=== PATIENT | female | born 1970 | race African-American/Black ===

== ENCOUNTER 2016-09-24 19:08 | Emergency (ER) | payer MEDICAID ==
[~2016-09-24] VITALS: Ht 160 cm; Wt 74.4 kg
[~2016-09-24 19:08] MED LIST: ARTIFICIAL TEAR15 ML LEFT EYE; CIPRO250 MG ORAL; CIPROFLOXACIN250 MG PO; DIFLUCAN150 MG PO; DYRENIUM50 MG PO; IBUPROFEN600 MG ORAL; LEVAQUIN250 M1 ORAL; PENICILLIN V P500 MG PO; PRED MILD5 ML OP; RANITIDINE HCL150 MG ORAL; ZOFRAN ODT4 MG ORAL
--- NOTE | 2016-09-24 21:20 | Emergency Room Report ---
History of Present Illness General Chief Complaint: Lower Extremity Injury Source: Patient Present Illness HPI Patient stubbed foot on computer stand earlier today. Continued pain. Took aleve. Pain 10/10 aching and throbbing. Swelling dorsum of foot. Pain radiates up into foot and slightly into ankle. Some numbness. No bleeding. Not diabetic. 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 Last Menstrual Period: 09/14/16 Now: No Reviewed Nursing Documentation: PMH: Agreed, PSxH: Agreed Nursing Documentation-PMH Past Medical History: No History, Except For Hx Hypertension: Yes Review of Systems Constitutional: Denies: fever Musculoskeletal: Reports: see HPI Skin: Reports: see HPI Neurological: Reports: see HPI Hematologic/Lymphatic: Reports: see HPI Physical Exam Vital Signs Date Time Temp Pulse Resp B/P Pulse Ox O2 Delivery O2 Flow Rate FiO2 09/24/16 19:36 98.2 92 16 136/75 100 Room Air Sp02 EP Interpretation: reviewed, normal General Appearance: well appearing, no apparent distress Head: normocephalic, atraumatic Eyes: bilateral eye PERRL, bilateral eye normal inspection ENT: hearing grossly normal, normal voice, moist mucus membranes Neck: full range of motion, supple Respiratory: no respiratory distress, speaking full sentences Musculoskeletal: no calf tenderness, decreased range of mation - toes due to pain, swelling, other - ankle not tender, MTs not tender Neurologic: alert, motor strength/tone normal, sensory intact, normal gait, speech normal Psychiatric: mood/affect normal Skin: other - swelling, no hematoma (at this time) Medical Decision Making Diagnostic Impression: Primary Impression: Fracture of fourth toe, right, closed Qualified Codes: S92.501A - Displaced unspecified fracture of right lesser toe (s), initial encounter for closed fracture ER Course Pt with foot contusion and pain. Ddx: fx, contusion, sprain. x-rays indicated. Also will be given analgesia. + fx 4th toe. Improved with treatment. Harshil tape with good position. Neurovasc intact checked by me. Patient stable for outpatient observation and treatment. Other X-Ray Diagnostic Results Other X-Ray Diagnostic Results : X-Ray Ordered: R foot EP Interpretation: Yes Findings: no dislocation, other - fx R 4th toe, no deformity Number of Views: 3 Last Vital Signs Date Time Temp Pulse Resp B/P Pulse Ox O2 Delivery O2 Flow Rate FiO2 09/24/16 23:00 98.2 68 19 130/80 99 Room Air Status: improved Disposition: HOME, SELF-CARE Condition: Improved Scripts Tramadol Hcl* (ULTRAM*) 50 Mg Tablet 50 MG ORAL Q6H Y for For Pain, #14 TAB 0 Refills Prov: Arnold Soto M.D. 09/24/16 Ibuprofen* (MOTRIN*) 600 Mg Tablet 600 MG ORAL Q6H Y for For Pain, #20 TAB Prov: Arnold Soto M.D. 09/24/16 Referrals: [facility],REFERRING (PCP) Arnold Soto M.D. Sep 24, 2016 21:20
[2016-09-24] MEDS ORDERED: traMADol 50mg tab ORAL ONE (21:45)
[2016-09-24] MEDS ORDERED: IBUPROFEN600 MG ORAL (21:48)
[2016-09-24] MEDS ORDERED: TRAMADOL HCL50 MG ORAL (21:48)
[2016-09-24 23:00] VITALS: BP 130/80
--- NOTE | 2016-09-25 13:52 | Diagnostic Imaging Report ---
Indications: Right foot pain Technique: 3 views right foot Findings: Comparison: None Transverse fracture proximal metadiaphyseal junction fourth proximal phalanx, nondisplaced. No additional fracture, dislocation, joint space or growth plate widening, surrounding soft tissue swelling/gas/foreign body, or other acute changes are identified. Spurs emanate from the plantar and posterior aspects of calcaneus. IMPRESSION: Fracture base of right fourth proximal phalanx, apparently closed No other evidence of acute injury Calcaneal enthesophytes
== END 2016-09-24 23:24 | disposition home or self-care (01) ==
LOC: EMR 21:16
DX: S92.511A Displaced fracture of proximal phalanx of right lesser toe(s), initial encounter for closed fracture (principal); W22.8XXA Striking against or struck by other objects, initial encounter; Y92.9 Unspecified place or not applicable; M77.31 Calcaneal spur, right foot; Z88.2 Allergy status to sulfonamides; Z88.1 Allergy status to other antibiotic agents
CPT/HCPCS: 99281

== ENCOUNTER 2016-10-09 18:22 | Emergency (ER) | payer MEDICAID ==
[~2016-10-09] VITALS: Ht 160 cm; Wt 74.4 kg
[~2016-10-09 18:22] MED LIST changes: +TRAMADOL HCL50 MG ORAL
[2016-10-09 18:40] VITALS: BP 130/70
--- NOTE | 2016-10-09 19:18 | Emergency Room Report ---
History of Present Illness General Chief Complaint: Upper Respiratory Illness Source: Patient Present Illness HPI 46-year-old female presents emergency department complaining of sore throat, intermittent fevers and chills at home in addition to nonproductive cough x 2 days She also states that she has increase in phlegm in the throat with difficulty clearing. Patient states she was attempting to clear her throat this morning and vomited. Pt. rates her pain as 10/10 in severity and describes a tearing sensation exacerbated with swallowing. Patient denies nausea or abdominal pain. She reports fatigue denies neck stiffness or neck pain. Patient denies ill contacts or recent travel. Denies history of asthma, COPD, or smoking. Denies rashes, CP, Palpitations, LOC, AMS, dizziness, Changes in Vision, Sensation, paresthesias, or a sudden severe headache. Allergies: Coded Allergies: NITROFURANTOIN (Verified Allergy, Severe, Anaphylaxis, 07/08/16) CEPHALEXIN (Unverified Allergy, Mild, 04/15/16) METRONIDAZOLE (Unverified Allergy, Mild, 04/15/16) Uncoded Allergies: BACTRUM (Allergy, Mild, 04/15/16) Patient History Past Medical History: see triage record Past Surgical History: none Pertinent Family History: none Last Menstrual Period: 10/03/16 Now: No Immunizations: UTD Reviewed Nursing Documentation: PMH: Agreed, PSxH: Agreed Nursing Documentation-PMH Hx Hypertension: Yes Review of Systems All Other Systems: negative except mentioned in HPI Physical Exam Vital Signs Date Time Temp Pulse Resp B/P Pulse Ox O2 Delivery O2 Flow Rate FiO2 10/09/16 18:34 98.6 99 15 130/70 99 Room Air Sp02 EP Interpretation: reviewed, normal General Appearance: no apparent distress, alert, GCS 15, non-toxic Head: normocephalic, atraumatic Eyes: bilateral eye PERRL, bilateral eye normal inspection ENT: hearing grossly normal, normal pharynx, no angioedema, normal voice, TMs + canals normal, uvula midline, moist mucus membranes, nasal congestion - clear rhinorrhea, pharyngeal erythema, tonsillar exudate, other - tonsils are surgically absent Neck: full range of motion, no meningismus, no bony tend, supple/symm/no masses Respiratory: chest non-tender, lungs clear, normal breath sounds, no rhonchi, no respiratory distress, no retraction, no accessory muscle use, no wheezing, speaking full sentences Cardiovascular #1: regular rate, rhythm, no edema Gastrointestinal: normal bowel sounds, non tender, soft, no guarding, no rebound Rectal: deferred Musculoskeletal: gait/station normal, normal range of motion, non-tender Neurologic: alert, oriented x3, responsive, motor strength/tone normal, sensory intact, speech normal Psychiatric: judgement/insight normal, memory normal, mood/affect normal, no suicidal/homicidal ideation Skin: normal color, no rash, warm/dry, well hydrated Lymphatic: no adenopathy Medical Decision Making PA Attestation Dr. Soto is my supervising Physician whom patient management has been discussed with. Diagnostic Impression: Primary Impression: Pharyngitis Qualified Codes: J02.9 - Acute pharyngitis, unspecified ER Course Pt. presents to the ED c/o : sore throat, intermittent fevers and chills, nasal congestion, increased mucus in the throat and intermittent cough. Ddx considered but are not limited to: pharyngitis, strep, APPLICATION ARCHITECT, ludwigs angina, URI , GE Vital signs: are WNL, pt. is afebrile, non-toxic in appearance. H&PE are most consistent with: pharyngitis presumed strep. Post nasal drainage is also highly suspicious due to increased mucus in the throat and nasal congestion. ORDERS: None required at this time as the diagnosis is clinical ED INTERVENTIONS: none required at this time. DISCHARGE: At this time pt. is stable for d/c to home. Will provide printed patient care instructions, and any necessary prescriptions. Care plan and follow up instructions have been discussed with the patient prior to discharge. Last Vital Signs Date Time Temp Pulse Resp B/P Pulse Ox O2 Delivery O2 Flow Rate FiO2 10/09/16 18:40 98.6 15 130/70 99 Room Air 10/09/16 18:40 99 Disposition: HOME, SELF-CARE Condition: Stable Scripts Lidocaine HCl (Lidocaine HCl Viscous) 100 Ml Solution 20 ML PO TID for 7 Days, #420 ML Prov: Karen Rodriguez P.A. 10/09/16 Loratadine/Pseudoephedrine (CLARITIN-D 24 HOUR TABLET) 1 Each Tab.er.24h 1 TAB PO DAILY for 14 Days, #30 TAB Prov: Karen Rodriguez P.A. 10/09/16 Amoxicillin (AMOXICILLIN) 400 Mg/5 Ml Susp.recon 6.25 ML ORAL BID for 10 Days, #140 ML Prov: Karen Rodriguez 10/09/16 Patient Instructions: Pharyngitis, Upper Respiratory Infection, Adult Additional Instructions: Take medications as directed. Follow up with PCP in 3-5 days Return sooner to ED if new symptoms occur, or current symptoms become worse. Do not drink alcohol, drive, or operate heavy machinery while taking Cough Syrup as this may cause drowsiness. Karen Rodriguez Oct 09, 2016 19:18
[2016-10-09] MEDS ORDERED: AMOXICILLI400 MG/5 M ORAL (19:23)
[2016-10-09] MEDS ORDERED: CLARITIN-D 241 EACH PO (19:23)
[2016-10-09] MEDS ORDERED: LIDOCAINE VISCO20 ML PO (19:23)
[2016-10-09 19:35] VITALS: BP 130/70
== END 2016-10-09 19:54 | disposition home or self-care (01) ==
LOC: EMR 19:25
DX: J02.9 Acute pharyngitis, unspecified (principal); I10 Essential (primary) hypertension; Z88.2 Allergy status to sulfonamides; Z88.1 Allergy status to other antibiotic agents
CPT/HCPCS: 99284

== ENCOUNTER 2017-01-28 18:11 | Emergency (ER) | payer MEDICAID ==
[~2017-01-28] VITALS: Ht 160 cm; Wt 72.1 kg
[~2017-01-28 18:11] MED LIST changes: +AMOXICILLI400 MG/5 M ORAL; +CLARITIN-D 241 EACH PO; +LIDOCAINE VISCO20 ML PO
[2017-01-28] MEDS ORDERED: Indomethacin 25mg cap ORAL ONE (19:15)
[2017-01-28] MEDS ORDERED: IBUPROFEN600 MG ORAL (19:52)
[2017-01-28 20:00] VITALS: BP 131/60
[2017-01-28] MEDS ORDERED: Fluconazole 100mg tab ORAL ONE (20:00)
[2017-01-28 20:20] VITALS: BP 131/60
--- NOTE | 2017-01-29 10:25 | Diagnostic Imaging Report ---
Indications: Right knee pain Technique: 3 views of the right knee Findings: Comparison: None No fracture, dislocation, lytic destruction, periosteal reaction, joint space widening or effusion, surrounding soft tissue abnormality, or other acute changes demonstrated. Small spur emanates from the superior pole of the patella in the region of quadriceps tendon insertion. No additional deformity, alignment abnormality, arthritic change, soft tissue calcification, or other chronic changes demonstrated. IMPRESSION: Patellar enthesophyte Otherwise negative right knee series.
[2017-01-29] MEDS ORDERED: INDOMETHACIN25 MG PO (22:04)
--- NOTE | 2017-01-30 12:39 | Emergency Room Report ---
History of Present Illness General Chief Complaint: Pain Source: Patient Present Illness HPI The patient is a 46-year-old female presenting with right knee pain which began 2 weeks prior. She is unsure why the pain began and denies any injury to this area. Pain is described as a 6/10 dull ache and does not radiate from the knee. Pain worse with walking. She denies any numbness or tingling. She does admit to swelling of the knee which has been gradually increasing. She also admits to vaginal itching for the past week and states she frequently gets vaginal yeast infections. She denies any other symptoms including rash, fever, chills, SOB, CP, calf pain, dysuria, hematuria Allergies: Coded Allergies: NITROFURANTOIN (Verified Allergy, Severe, Anaphylaxis, 07/08/16) CEPHALEXIN (Unverified Allergy, Mild, 04/15/16) METRONIDAZOLE (Unverified Allergy, Mild, 04/15/16) SULFAMETHOXAZOLE (Verified Allergy, Unknown, 01/28/17) TRIMETHOPRIM (Verified Allergy, Unknown, 01/28/17) Uncoded Allergies: BACTRUM (Allergy, Mild, 04/15/16) Patient History Past Medical History: see triage record Pertinent Family History: none Last Menstrual Period: 12/28/16 Reviewed Nursing Documentation: PMH: Agreed, PSxH: Agreed Nursing Documentation-PMH Past Medical History: No History, Except For Hx Hypertension: Yes Review of Systems All Other Systems: negative except mentioned in HPI Physical Exam Vital Signs Date Time Temp Pulse Resp B/P Pulse Ox O2 Delivery O2 Flow Rate FiO2 01/28/17 18:27 97.9 85 16 129/62 95 Room Air Sp02 EP Interpretation: reviewed, normal General Appearance: no apparent distress, alert, GCS 15, non-toxic Head: normocephalic, atraumatic Eyes: bilateral eye PERRL, bilateral eye normal inspection ENT: hearing grossly normal, normal pharynx, no angioedema, normal voice Respiratory: chest non-tender, lungs clear, normal breath sounds, speaking full sentences Cardiovascular #1: regular rate, rhythm, no edema Musculoskeletal: normal range of motion, no calf tenderness, swelling, tender - TTP over the R knee anterior joint line Neurologic: alert, oriented x3, responsive, motor strength/tone normal, sensory intact, speech normal Psychiatric: judgement/insight normal, memory normal, mood/affect normal, no suicidal/homicidal ideation Skin: normal color, no rash, warm/dry, well hydrated Lymphatic: no adenopathy Procedures Splinting Splinting : Consent: Verbal Location: R knee Pre-Made Type: LUISANA wrap Pre-Proc Neuro Vasc Exam: normal Post-Proc Neuro Vasc Exam: normal Patient Tolerated: Well Complications: None Medical Decision Making PA Attestation Dr. Castañeda is my supervising physician. Patient management was discussed with my supervising physician Diagnostic Impression: Primary Impression: Knee pain Qualified Codes: M25.561 - Pain in right knee ER Course The patient is a 46-year-old female presenting with right knee pain which began 2 weeks prior. Ddx considered include but not limited to gout, sprain/strain, fracture, contusion, DVT Differential diagnosis considered but not limited to: UTI, vaginitis, yeast infection, PE: vitals WNL. NAD R knee: there is non pitting edema to the R knee only. TTP over the anterior joint line. No ecchymosis or erythema. Skin warm and dry. No calf edema of tenderness. Normal gait. R knee xray unremarkable. UA ordered yet patient has chosen to leave before results. R knee placed in LUISANA wrap and the pt will be NH'ed home with a prescription for indomethacin and has been treated for vaginal yeast infection. ER precautions given Other X-Ray Diagnostic Results Other X-Ray Diagnostic Results : X-Ray Ordered: R knee Date: January 28, 2017 EP Interpretation: Yes Findings: no fractures, no dislocation, no soft tissue swelling Number of Views: 3 PA Scribe Text I am acting as scribe for my supervising physician. My supervising physician's interpretation of the R knee xrays are there are no fractures, dislocations or soft tissue swelling. Last Vital Signs Date Time Temp Pulse Resp B/P Pulse Ox O2 Delivery O2 Flow Rate FiO2 01/28/17 20:20 97.9 72 17 131/60 100 Room Air Status: improved Disposition: HOME, SELF-CARE Condition: Improved Referrals: [facility],REFERRING (PCP) Patient Instructions: Knee Pain Additional Instructions: I discussed my findings with the patient. All questions and concerns have been answered. Treatment and medication compliance have been addressed. I advised the patient that they need to follow up with PMD in 3-5 days. Return to ED if pain remains or worsens, numbness or tingling occurs, new rash is noticed, fever is noticed, or if needed for any reason. Patient verbalized understanding of discharge instructions. REGGIE JIMENEZ January 30, 2017 12:39
== END 2017-01-28 20:20 | disposition home or self-care (01) ==
LOC: EMR 19:00
DX: M25.561 Pain in right knee (principal); L29.2 Pruritus vulvae; Z88.2 Allergy status to sulfonamides; Z88.8 Allergy status to other drugs, medicaments and biological substances; I10 Essential (primary) hypertension
CPT/HCPCS: 29530; 99283

== ENCOUNTER 2017-01-29 18:51 | Emergency (ER) | payer MEDICAID ==
[~2017-01-29] VITALS: Ht 160 cm; Wt 72.1 kg
[2017-01-29] MEDS ORDERED: Ketorolac 60mg Inj IM ONE (20:15)
--- NOTE | 2017-01-29 20:41 | Emergency Room Report ---
History of Present Illness General Chief Complaint: Lower Extremity Injury Source: Patient Present Illness HPI 46-year-old female presents emergency department complaining of right calf pain , swelling times one day. Patient states she was seen here in the emergency department yesterday for pain and swelling of the right knee. Patient states she had x-rays performed which were negative. Patient states she was given indomethacin and has been taking Motrin without relief. Patient reports 9/10 in severity pain that rated down the posterior calf. Patient also reports some seen/increase in prominence of the veins. Patient denies oral contraceptive use , history of smoking or estrogen replacement. Patient denies nausea vomiting fevers chills recent travel or long periods of being sedentary. She reports pain is exacerbated upon walking denies history of high-pressure denies past medical history. She denies trauma. 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 Pt. did not fill rx that was given yesterday for motrin, she states she has motrin at home. Pt also is not wearing LUISANA wrap which was given at yesterdays visit, she states it does not provide relief. Denies CP, Palpitations, LOC, AMS, dizziness, Changes in Vision, Sensation, paresthesias, or a sudden severe headache. Allergies: Coded Allergies: NITROFURANTOIN (Verified Allergy, Severe, Anaphylaxis, 07/08/16) CEPHALEXIN (Unverified Allergy, Mild, 04/15/16) METRONIDAZOLE (Unverified Allergy, Mild, 04/15/16) SULFAMETHOXAZOLE (Verified Allergy, Unknown, 01/28/17) TRIMETHOPRIM (Verified Allergy, Unknown, 01/28/17) Uncoded Allergies: BACTRUM (Allergy, Mild, 04/15/16) Patient History Past Medical History: see triage record Past Surgical History: none Pertinent Family History: none Last Menstrual Period: LAST MONTH Now: No Immunizations: UTD Reviewed Nursing Documentation: PMH: Agreed, PSxH: Agreed Nursing Documentation-PMH Hx Hypertension: Yes Review of Systems All Other Systems: negative except mentioned in HPI Physical Exam Vital Signs Date Time Temp Pulse Resp B/P Pulse Ox O2 Delivery O2 Flow Rate FiO2 01/29/17 19:12 98.4 92 18 135/71 97 Room Air Sp02 EP Interpretation: reviewed, normal General Appearance: no apparent distress, alert, GCS 15, non-toxic Head: normocephalic, atraumatic Eyes: bilateral eye PERRL, bilateral eye normal inspection ENT: hearing grossly normal, normal pharynx, no angioedema, normal voice Neck: full range of motion, supple/symm/no masses Respiratory: lungs clear, normal breath sounds, speaking full sentences Cardiovascular #1: regular rate, rhythm, no edema, normal capillary refill Cardiovascular #2: 2+ dorsalis pedis (R), 2+ dorsalis pedis (L) Musculoskeletal: back normal, gait/station normal, normal range of motion, tender - right posterior calf TTP, LE swelling noted to the right knee and calf. good capillary refill and pulses bilaterally. Neurologic: alert, oriented x3, responsive, motor strength/tone normal, sensory intact, speech normal Psychiatric: judgement/insight normal, memory normal, mood/affect normal Skin: normal color, no rash, warm/dry, well hydrated Medical Decision Making PA Attestation Dr. garza is my supervising Physician whom patient management has been discussed with. Diagnostic Impression: Primary Impression: Knee pain Qualified Codes: M25.561 - Pain in right knee Additional Impressions: Right leg swelling Pain and swelling of lower leg Qualified Codes: M79.661 - Pain in right lower leg; M79.89 - Other specified soft tissue disorders ER Course 46-year-old female presents emergency department complaining of right calf pain , swelling times one day. Patient states she was seen here in the emergency department yesterday for pain and swelling of the right knee. Patient states she had x-rays performed which were negative. Patient states she was given indomethacin and has been taking Motrin without relief. Patient reports 9/10 in severity pain that rated down the posterior calf. Patient also reports some seen/increase in prominence of the veins. Patient denies oral contraceptive use , history of smoking or estrogen replacement. Patient denies nausea vomiting fevers chills recent travel or long periods of being sedentary. She reports pain is exacerbated upon walking denies history of high-pressure denies past medical history. She denies trauma. 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 Pt. did not fill rx that was given yesterday for Motrin, she states she has Motrin at home. Pt also is not wearing LUISANA wrap which was given at yesterdays visit, she states it does not provide relief. Ddx considered but are not limited to Cellulitis, DVT, varicose vein, PAD, Venous insufficiency, lymphedema, dependent edema, musculoskeletal injury. Vital signs: are WNL, pt. is afebrile H&PE are most consistent with unilateral lower extremity pain and swelling will r/o DVT. no erythema, no increased temperature to palpation, no increased ligamental laxity noted. infection is not suspected at this time. - reviewed X-ray imaging that was performed yesterday which was negative for fx ,D/L, or obvious soft tissue injury. - It appears pt. was treated yesterday with indomethacin as provider was suspicious for gout- reporting no personal, but family hx of gout. ORDERS: CMP, CBC with Diff, PT/PTT: Unremarkable - LE duplex U/s to R/O dvt. NEGATIVE FOR DVT. ED INTERVENTIONS: -Toradol IM DISCHARGE: At this time pt. is stable for d/c to home. Will provide printed patient care instructions, and any necessary prescriptions. Care plan and follow up instructions have been discussed with the patient prior to discharge. Labs Test 01/29/17 20:54 White Blood Count 10.6 K/UL (4.8-10.8) Red Blood Count 4.45 M/UL (4.20-5.40) Hemoglobin 12.0 G/DL (12.0-16.0) Hematocrit 37.1 % (37.0-47.0) Mean Corpuscular Volume 83 FL (80-99) Mean Corpuscular Hemoglobin 26.9 PG (27.0-31.0) Mean Corpuscular Hemoglobin Concent 32.3 G/DL (32.0-36.0) Red Cell Distribution Width 15.0 % (11.6-14.8) Platelet Count 411 K/UL (150-450) Mean Platelet Volume 6.1 FL (6.5-10.1) Neutrophils (%) (Auto) 58.4 % (45.0-75.0) Lymphocytes (%) (Auto) 29.0 % (20.0-45.0) Monocytes (%) (Auto) 6.7 % (1.0-10.0) Eosinophils (%) (Auto) 4.9 % (0.0-3.0) Basophils (%) (Auto) 1.1 % (0.0-2.0) Prothrombin Time 10.0 SEC (9.30-11.50) Prothromb Time International Ratio 1.0 (0.9-1.1) Activated Partial Thromboplast Time 25 SEC (23-33) Sodium Level 138 mEQ/L (135-145) Potassium Level 3.8 mEQ/L (3.4-4.9) Chloride Level 96 mEQ/L (98-107) Carbon Dioxide Level 28 mEQ/L (20-30) Anion Gap 14 (5-15) Blood Urea Nitrogen 12 mg/dL (7-23) Creatinine 1.0 mg/dL (0.5-0.9) Estimat Glomerular Filtration Rate > 60 mL/min (>60) Glucose Level 129 mg/dL (74-106) Calcium Level 9.3 mg/dL (8.6-10.2) Last Vital Signs Date Time Temp Pulse Resp B/P Pulse Ox O2 Delivery O2 Flow Rate FiO2 01/29/17 19:12 98.4 92 18 135/71 97 Room Air Disposition: HOME, SELF-CARE Condition: Stable Scripts Indomethacin (INDOMETHACIN) 25 Mg Capsule 25 MG PO TID for 3 Days, #9 CAP Prov: Karen Rodriguez 01/29/17 Patient Instructions: Edema, [id number], Knee Pain, [id number] Additional Instructions: Take medications as directed. Follow up with PCP in 3-5 days Return sooner to ED if new symptoms occur, or current symptoms become worse. - Please note that this Emergency Department Report was dictated using [employer] pens assembler technology software, occasionally this can lead to erroneous entry secondary to interpretation by the dictation equipment. Karen Rodriguez January 29, 2017 20:41
[2017-01-29 21:09] LABS: BASOPHILS % (AUTO) 1.1 % (0.0-2.0); EOSINOPHILS % (AUTO) 4.9 % (0.0-3.0); MEAN CORPUSCULAR HEMOGLOBIN 26.9 PG (27.0-31.0); MEAN CORPUSCULAR HGB CONC 32.3 G/DL (32.0-36.0); MEAN CORPUSCULAR VOLUME 83 FL (80-99); MEAN PLATELET VOLUME 6.1 FL (6.5-10.1); MONOCYTES % (AUTO) 6.7 % (1.0-10.0); NEUTROPHILS % (AUTO) 58.4 % (45.0-75.0); PLATELET COUNT 411 K/UL (150-450); RED BLOOD COUNT 4.45 M/UL (4.20-5.40); WHITE BLOOD COUNT 10.6 K/UL (4.8-10.8)
[2017-01-29 21:37] LABS: ANION GAP 14 (5-15); CALCIUM 9.3 mg/dL (8.6-10.2); CARBON DIOXIDE 28 mEQ/L (20-30); CHLORIDE 96 mEQ/L (98-107); GLOMERULAR FILTRATION RATE > 60 mL/min (>60); HEMOLYSIS 1; POTASSIUM 3.8 mEQ/L (3.4-4.9); SODIUM 138 mEQ/L (135-145)
[2017-01-29] MEDS ORDERED: INDOMETHACIN25 MG PO (22:04)
[2017-01-29 22:13] VITALS: BP 135/71
== END 2017-01-29 22:10 | disposition home or self-care (01) ==
LOC: EMR 19:46
DX: M25.561 Pain in right knee (principal); M79.89 Other specified soft tissue disorders; M79.604 Pain in right leg; I10 Essential (primary) hypertension; Z88.2 Allergy status to sulfonamides; Z88.1 Allergy status to other antibiotic agents; Z88.8 Allergy status to other drugs, medicaments and biological substances
CPT/HCPCS: 36415; 80048; 85025; 85610; 85730; 93971; 96372; 99283

== ENCOUNTER 2017-02-15 08:06 | Emergency (ER) | payer MEDICAID ==
[~2017-02-15] VITALS: Ht 160 cm; Wt 75.3 kg
[~2017-02-15 08:06] MED LIST changes: +INDOMETHACIN25 MG PO
[2017-02-15 08:31] VITALS: BP 117/76
[2017-02-15 09:30] LABS: APPEARANCE,URINE CLEAR; KETONES,URINE NEGATIVE (NEGATIVE); LEUKOCYTE ESTERASE ,URINE 2+ (NEGATIVE); NITRITE,URINE NEGATIVE (NEGATIVE); PH,URINE 6 (4.5-8.0); PROTEIN,URINE NEGATIVE (NEGATIVE); UROBILINOGEN,URINE NORMAL MG/DL (0.0-1.0)
[2017-02-15 09:35] LABS: BACTERIA,URINE FEW /HPF; RBC,URINE 0-2 /HPF (0 - 2); SQUAMOUS EPITHELIAL CELL,UR FEW /LPF (NONE/OCC)
[2017-02-15] MEDS ORDERED: Ketorolac 60mg Inj IM ONE (09:45)
[2017-02-15] MEDS ORDERED: DOXYCYCLINE MO100 MG ORAL (09:49)
--- NOTE | 2017-02-15 10:07 | Emergency Room Report ---
History of Present Illness General Chief Complaint: Abdominal Pain Source: Patient Present Illness HPI [id number] with 3-4 days of dysuria, polyuria, "white vaginal discharge" and sharp pain to left flank. Feels similar to "previous UTI." Denies nausea/vomiting, fever/chills. Took 2 "doses of cipro I found at home last night but they may have been ." Denies previous abd/pelvic surgeries. Denies sick contacts. Denies recent Abx prior to the Cipro that may have caused white vaginal discharge. However, states that the discharge is not any different from "normal vaginal discharge." Sexually active with 1 partner. Allergies: Coded Allergies: NITROFURANTOIN (Verified Allergy, Severe, Anaphylaxis, 07/08/16) CEPHALEXIN (Unverified Allergy, Mild, 04/15/16) METRONIDAZOLE (Unverified Allergy, Mild, 04/15/16) SULFAMETHOXAZOLE (Verified Allergy, Unknown, 01/28/17) TRIMETHOPRIM (Verified Allergy, Unknown, 01/28/17) Uncoded Allergies: BACTRUM (Allergy, Mild, 04/15/16) Patient History Past Medical History: none Past Surgical History: none Pertinent Family History: none Social History: Denies: alcohol use, drug use, smoking Last Menstrual Period: 02/12/17 Now: No Immunizations: UTD Reviewed Nursing Documentation: PMH: Agreed, PSxH: Agreed Nursing Documentation-PMH Past Medical History: No History, Except For Hx Hypertension: Yes Review of Systems All Other Systems: negative except mentioned in HPI Physical Exam Vital Signs Date Time Temp Pulse Resp B/P Pulse Ox O2 Delivery O2 Flow Rate FiO2 02/15/17 08:21 98.2 76 16 108/71 100 Room Air Sp02 EP Interpretation: reviewed, normal General Appearance: normal inspection, well appearing, no apparent distress, alert, non-toxic Head: normocephalic, atraumatic Eyes: bilateral eye EOMI, bilateral eye PERRL ENT: normal ENT inspection, hearing grossly normal, normal voice Neck: normal inspection, full range of motion, supple, no bony tend Respiratory: normal inspection Cardiovascular #1: regular rate, rhythm, no edema Gastrointestinal: normal inspection, normal bowel sounds, non tender, soft, no guarding, no hernia Genitourinary: no CVA tenderness Musculoskeletal: normal inspection, back normal, normal range of motion, Carlos Eduardo' s Sign negative Neurologic: normal inspection, alert, oriented x3, responsive, log check scaler III-XII nml as tested, motor strength/tone normal, speech normal Psychiatric: normal inspection, judgement/insight normal, mood/affect normal Skin: normal inspection, normal color, no rash Lymphatic: normal inspection Medical Decision Making Diagnostic Impression: Primary Impression: Urinary tract infection Qualified Codes: N30.00 - Acute cystitis without hematuria ER Course Urine preg negative 2+ LE in UA. Some WBCs Given flank pain, ?pyelo although VSS, afebrile and doesnt appear to be systemically ill at this time Strongly advised Cipro or Levo as recommended by [employer] for outpatient uncomplicated pyelo but patient adamant that cipro "doesnt work for me" even though she took 2 pills of questionable efficacy last night Patient only agreeable for Doxycycline for 1 week Advised return to ER if fever/chills, vomiting, worsening symptoms PMD followup as needed DC home Last Vital Signs Date Time Temp Pulse Resp B/P Pulse Ox O2 Delivery O2 Flow Rate FiO2 02/15/17 08:31 98.0 73 18 117/76 100 Room Air Status: improved Disposition: HOME, SELF-CARE Scripts Doxycycline Monohydrate* (DOXYCYCLINE MONOHYDRATE*) 100 Mg Capsule 100 MG ORAL Q12H for 7 Days, #14 CAP 0 Refills Prov: JAYNE LINCOLN M.D. 02/15/17 Referrals: [facility],REFERRING (PCP) Patient Instructions: Dysuria JAYNE LINCOLN M.D. Feb 15, 2017 10:07
[2017-02-15 10:11] VITALS: BP 127/76
== END 2017-02-15 10:11 | disposition home or self-care (01) ==
LOC: EMR 09:10
DX: N30.00 Acute cystitis without hematuria (principal); I10 Essential (primary) hypertension; Z88.2 Allergy status to sulfonamides; Z88.8 Allergy status to other drugs, medicaments and biological substances
CPT/HCPCS: 81003; 81025; 96372; 99283

== ENCOUNTER 2017-04-19 15:27 | Emergency (ER) | payer MEDICAID ==
[~2017-04-19] VITALS: Ht 160 cm; Wt 69.4 kg
[~2017-04-19 15:27] MED LIST changes: +DOXYCYCLINE MO100 MG ORAL
--- NOTE | 2017-04-19 16:01 | Emergency Room Report ---
History of Present Illness General Chief Complaint: Skin Rash/Abscess Source: Patient Present Illness HPI 46-year-old female presents to the emergency department complaining of itchy rash to the right forehead since yesterday a.m. Patient reports some mild skin discoloration. Patient denies bleeding, with open lesions, or burning sensation. Patient reports a dull ache 7/10 in that area. 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 patient denies lesions elsewhere on the body. She denies history of immunocompromise, fevers, chills. Denies recent illness or URI. Denies CP, Palpitations, LOC, AMS, dizziness, Changes in Vision, Sensation, paresthesias, or a sudden severe headache. Allergies: Coded Allergies: NITROFURANTOIN (Verified Allergy, Severe, Anaphylaxis, 07/08/16) CEPHALEXIN (Unverified Allergy, Mild, 04/15/16) METRONIDAZOLE (Unverified Allergy, Mild, 04/15/16) SULFAMETHOXAZOLE (Verified Allergy, Unknown, 01/28/17) TRIMETHOPRIM (Verified Allergy, Unknown, 01/28/17) Uncoded Allergies: BACTRUM (Allergy, Mild, 04/15/16) Patient History Past Medical History: see triage record Past Surgical History: none Pertinent Family History: none Last Menstrual Period: 04/12/17 Now: No : 1 Para: 1 Immunizations: UTD Reviewed Nursing Documentation: PMH: Agreed, PSxH: Agreed Nursing Documentation-PMH Past Medical History: No Stated History Hx Hypertension: Yes Review of Systems All Other Systems: negative except mentioned in HPI Physical Exam Vital Signs Date Time Temp Pulse Resp B/P Pulse Ox O2 Delivery O2 Flow Rate FiO2 04/19/17 15:35 98.2 100 22 124/77 100 Room Air Sp02 EP Interpretation: reviewed, normal General Appearance: no apparent distress, alert, GCS 15, non-toxic Head: normocephalic, atraumatic Eyes: bilateral eye PERRL, bilateral eye normal inspection ENT: hearing grossly normal, normal pharynx, no angioedema, normal voice Neck: full range of motion, supple/symm/no masses Respiratory: lungs clear, normal breath sounds, speaking full sentences Cardiovascular #1: regular rate, rhythm, no edema Rectal: deferred Musculoskeletal: back normal, gait/station normal, normal range of motion, non- tender Neurologic: alert, oriented x3, responsive, motor strength/tone normal, sensory intact, speech normal Psychiatric: judgement/insight normal, memory normal, mood/affect normal Skin: normal color, warm/dry, well hydrated, rash - annular hyperpigmented plaque to the right side of forehead noted, no erythema or increased temperature to palpation, no vessicles, no bullae Medical Decision Making PA Attestation Dr. Castañeda is my supervising Physician whom patient management has been discussed with. Diagnostic Impression: Primary Impression: Rash and other nonspecific skin eruption ER Course Pt. presents to the ED c/o rash on right side of forehead that is very itchy x 2 days. Ddx considered but are not limited to cellulitis, scabies, shingles, varicella, dermatitis, urticaria, eczema, tinea Vital signs: are WNL, pt. is afebrile H&PE are most consistent with possible tinea infection ORDERS: none required at this time, the diagnosis is clinical ED INTERVENTIONS: None required at this time. DISCHARGE: At this time pt. is stable for d/c to home. Will provide printed patient care instructions, and any necessary prescriptions. Care plan and follow up instructions have been discussed with the patient prior to discharge. Last Vital Signs Date Time Temp Pulse Resp B/P Pulse Ox O2 Delivery O2 Flow Rate FiO2 04/19/17 15:35 98.2 100 22 124/77 100 Room Air Disposition: HOME, SELF-CARE Condition: Stable Scripts Hydrocortisone 2% Cream (ANTI-ITCH 2% CREAM) Y Cr 1 APPLIC TP BID, #15 GM Prov: Karen Rodriguez 04/19/17 Clotrimazole* (LOTRIMIN*) 15 Gm Cream..g. 1 APPLIC TOPIC TWICE A DAY, #15 GM Prov: Karen Rodriguez 04/19/17 Departure Forms: Return to Work Return to Work Date: Apr 22, 2017 Work Restrictions: None Return to Full Activity: Apr 22, 2017 Patient Instructions: Rash Additional Instructions: Take medications as directed. Follow up with a Primary Care Provider in 3-5 days, even if your symptoms have resolved. --Please review list of primary care clinics, if you do not already have a primary care provider Return sooner to ED if new symptoms occur, or current symptoms become worse. - Please note that this Emergency Department Report was dictated using [employer] forklift driver truck driver technology software, occasionally this can lead to erroneous entry secondary to interpretation by the dictation equipment. Karen Rodriguez Apr 19, 2017 16:01
[2017-04-19] MEDS ORDERED: CLOTRIMAZOLE15 GM TOPIC (16:03)
[2017-04-19] MEDS ORDERED: ANTI-ITCH28 G1 TP (16:03)
[2017-04-19 16:34] VITALS: BP_SYST 121; BP_SYST 124; BP_DIAS 74; BP_DIAS 77
== END 2017-04-19 16:34 | disposition home or self-care (01) ==
LOC: EMR 15:55
DX: R21 Rash and other nonspecific skin eruption (principal); I10 Essential (primary) hypertension; Z88.2 Allergy status to sulfonamides; Z88.1 Allergy status to other antibiotic agents
CPT/HCPCS: 99284

== ENCOUNTER 2017-04-21 17:47 | Emergency (ER) | payer MEDICAID ==
[~2017-04-21] VITALS: Ht 160 cm; Wt 69.4 kg
[~2017-04-21 17:47] MED LIST changes: +ANTI-ITCH28 G1 TP; +CLOTRIMAZOLE15 GM TOPIC
[2017-04-21] MEDS ORDERED: TRIAMTERENE-HC1 EAC7 ORAL (18:00)
[2017-04-21 18:05] VITALS: BP 131/79
[2017-04-21] MEDS ORDERED: Azithromycin 250mg tab ORAL ONE (18:30)
[2017-04-21 18:46] LABS: APPEARANCE,URINE CLEAR; KETONES,URINE NEGATIVE (NEGATIVE); LEUKOCYTE ESTERASE ,URINE 2+ (NEGATIVE); NITRITE,URINE NEGATIVE (NEGATIVE); PH,URINE 6 (4.5-8.0); PROTEIN,URINE NEGATIVE (NEGATIVE); UROBILINOGEN,URINE NORMAL MG/DL (0.0-1.0)
[2017-04-21 18:53] LABS: BACTERIA,URINE FEW /HPF; RBC,URINE 0-2 /HPF (0 - 2); SQUAMOUS EPITHELIAL CELL,UR FEW /LPF (NONE/OCC)
[2017-04-21] MEDS ORDERED: RANITIDINE HCL150 MG ORAL (19:29)
[2017-04-21] MEDS ORDERED: Fluconazole 100mg tab ORAL ONE (19:30)
[2017-04-21 19:43] VITALS: BP 137/81
--- NOTE | 2017-04-21 20:39 | Emergency Room Report ---
History of Present Illness General Chief Complaint: Female Urogenital Problems Source: Patient Present Illness HPI 46-year-old female presents ED for evaluation. This for one week she's been having suprapubic pressure and vaginal discharge. Notes brownish discharge. Notes dysuria. Denies hematuria. Denies any flank pain. States she's been sexually active unprotected. No other aggravating relieving factors. Denies any other associated symptoms Allergies: Coded Allergies: NITROFURANTOIN (Verified Allergy, Severe, Anaphylaxis, 07/08/16) CEPHALEXIN (Unverified Allergy, Mild, 04/15/16) METRONIDAZOLE (Unverified Allergy, Mild, 04/15/16) SULFAMETHOXAZOLE (Verified Allergy, Unknown, 01/28/17) TRIMETHOPRIM (Verified Allergy, Unknown, 01/28/17) Uncoded Allergies: BACTRUM (Allergy, Mild, 04/15/16) Patient History Past Medical History: HTN, GERD Past Surgical History: none Pertinent Family History: none Social History: Denies: alcohol use, drug use, smoking Last Menstrual Period: Three weeks ago Now: No Immunizations: UTD Reviewed Nursing Documentation: PMH: Agreed, PSxH: Agreed Nursing Documentation-PMH Hx Hypertension: Yes Hx Gastrointestinal Problems: Yes - ?Acid reflux Hx Neurological Problems: Yes - Cardenas's Palsy Review of Systems All Other Systems: negative except mentioned in HPI Physical Exam Vital Signs Date Time Temp Pulse Resp B/P Pulse Ox O2 Delivery O2 Flow Rate FiO2 04/21/17 17:54 98.6 82 16 131/79 100 Room Air Sp02 EP Interpretation: reviewed, normal General Appearance: no apparent distress, alert, GCS 15, non-toxic Head: normocephalic, atraumatic Eyes: bilateral eye PERRL, bilateral eye normal inspection ENT: hearing grossly normal, normal pharynx, no angioedema, normal voice Neck: full range of motion, supple/symm/no masses Respiratory: chest non-tender, lungs clear, normal breath sounds, speaking full sentences Cardiovascular #1: regular rate, rhythm, no edema Cardiovascular #2: 2+ carotid (R), 2+ carotid (L), 2+ radial (R), 2+ radial (L) , 2+ dorsalis pedis (R), 2+ dorsalis pedis (L) Gastrointestinal: normal bowel sounds, non tender, soft, non-distended, no guarding, no rebound Rectal: deferred Genitourinary: normal inspection, no CVA tenderness Musculoskeletal: back normal, gait/station normal, normal range of motion, non- tender Neurologic: alert, oriented x3, responsive, motor strength/tone normal, sensory intact, speech normal Psychiatric: judgement/insight normal, memory normal, mood/affect normal, no suicidal/homicidal ideation Reflexes: 3+ bicep (R), 3+ bicep (L), 3+ tricep (R), 3+ tricep (L), 3+ knee (R) , 3+ knee (L) Skin: normal color, no rash, warm/dry, well hydrated Lymphatic: no adenopathy Medical Decision Making Diagnostic Impression: Primary Impression: Vaginal discharge Additional Impression: Gastritis Qualified Codes: K29.00 - Acute gastritis without bleeding ER Course Hospital Course 46-year-old female presents with vaginal discharge and dysuria Differential diagnoses include: UTI, cystitis, pyelonephritis Clinical course Patient placed on stretcher. After initial history and physical I ordered UA, urine . UA noted to be unremarkable. Given patient' concern for STD we will treat. Patient has cephalosporin allergy. We'll treat with 2 g of azithormycin Patient has history of gastritis but denies any complaints at this time. We will provide her with medication Given Diflucan as well Diagnosis - vaginal discharge, gastritis Stable and discharged home with prescriptions for Rx Zantac. Instructed to followup with PMD. Return to ED if symptoms recur or worsen Labs Test 04/21/17 18:18 Urine Color Pale yellow Urine Appearance Clear Urine pH 6 (4.5-8.0) Urine Specific [place] 1.015 (1.005-1.035) Urine Protein Negative (NEGATIVE) Urine Glucose (UA) Negative (NEGATIVE) Urine Ketones Negative (NEGATIVE) Urine Occult Blood Negative (NEGATIVE) Urine Nitrite Negative (NEGATIVE) Urine Bilirubin Negative (NEGATIVE) Urine Urobilinogen Normal MG/DL (0.0-1.0) Urine Leukocyte Esterase 2+ (NEGATIVE) Urine RBC 0-2 /HPF (0 - 2) Urine WBC 2-4 /HPF (0 - 2) Urine Squamous Epithelial Cells Few /LPF (NONE/OCC) Urine Bacteria Few /HPF (NONE) Urine HCG, Qualitative Negative Last Vital Signs Date Time Temp Pulse Resp B/P Pulse Ox O2 Delivery O2 Flow Rate FiO2 04/21/17 19:43 98.6 87 14 137/81 100 Room Air Status: improved Disposition: HOME, SELF-CARE Condition: Stable Scripts Ranitidine Hcl* (ZANTAC*) 150 Mg Tablet 150 MG ORAL TWICE A DAY, #30 TAB Prov: ESTEBAN ROLON M.D. 04/21/17 Referrals: [facility],REFERRING (PCP) Patient Instructions: Vaginal Yeast Infection, Adult ESTEBAN ROLON M.D. Apr 21, 2017 20:39
== END 2017-04-21 19:43 | disposition home or self-care (01) ==
LOC: EMR 18:33
DX: N89.8 Other specified noninflammatory disorders of vagina (principal); K29.70 Gastritis, unspecified, without bleeding; I10 Essential (primary) hypertension; K21.9 Gastro-esophageal reflux disease without esophagitis; G51.0 Bell's palsy
CPT/HCPCS: 81003; 81025; 99283; Q0144

== ENCOUNTER 2017-05-09 23:41 | Emergency (ER) | payer MEDICAID ==
[~2017-05-09] VITALS: Ht 160 cm; Wt 69.4 kg
[~2017-05-09 23:41] MED LIST changes: +TRIAMTERENE-HC1 EAC7 ORAL
[2017-05-09 23:58] VITALS: BP 131/70
[2017-05-10] MEDS ORDERED: LIDOCAINE15 GM TP (00:06)
[2017-05-10] MEDS ORDERED: TINIDAZOLE500 MG PO (00:18)
[2017-05-10] MEDS ORDERED: METROGEL-VAGINA70 G1 VAGIN (00:24)
[2017-05-10 00:28] VITALS: BP 131/70
--- NOTE | 2017-05-10 00:46 | Emergency Room Report ---
History of Present Illness General Chief Complaint: Female Urogenital Problems Source: Patient Present Illness HPI Patient 46-year-old female presented after increased of vaginal discharge and pain. Patient stated she recently been diagnosed with trichomonas. The patient had been prescribed Tinidazole but had been unable to fill the medications. Patient had prior history of allergy to metronidazole which she states results and throat swelling. She reports having some increase pain and vaginal discharge. The patient been taking doxycycline as well. 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 Hx Hypertension: Yes Hx Gastrointestinal Problems: Yes - GERD Hx Neurological Problems: Yes - Cardenas's Palsy Review of Systems All Other Systems: negative except mentioned in HPI Physical Exam Vital Signs Date Time Temp Pulse Resp B/P (MAP) Pulse Ox O2 Delivery O2 Flow Rate FiO2 05/09/17 23:44 98.1 96 17 131/70 99 Room Air General Appearance: well appearing, no apparent distress, alert, GCS 15 Head: normocephalic, atraumatic ENT: hearing grossly normal, normal voice Neck: full range of motion, supple Respiratory: no respiratory distress, no retraction, speaking full sentences Cardiovascular #1: normal inspection, regular rate, rhythm Gastrointestinal: normal inspection, non tender Musculoskeletal: no calf tenderness Neurologic: normal inspection, alert, oriented x3, supervisor shearing III-XII nml as tested, normal gait Psychiatric: normal inspection, mood/affect normal Skin: no rash Medical Decision Making Diagnostic Impression: Primary Impression: Vaginitis ER Course Patient presented for vaginal discharge. Differential diagnosis included was not limited to sexual transmitted infection, vaginitis, bacterial vaginosis. Patient's benign exam and does not appear to require any further imaging or laboratory testing at this time. Patient is given prescription for MetroGel. The patient was advised this may cost him allergic reaction and she has a previous history of allergy. The patient was advised to discontinue use if she began having any symptoms. Last Vital Signs Date Time Temp Pulse Resp B/P (MAP) Pulse Ox O2 Delivery O2 Flow Rate FiO2 05/10/17 00:28 98.1 17 131/70 99 Room Air 05/09/17 23:44 96 Status: improved Disposition: HOME, SELF-CARE Condition: Stable Scripts Metronidazole* (METROGEL-VAGINAL*) 70 Gm Gel.w.appl 1 APPL VAGIN EVERY 12 HOURS, #70 GM Prov: Joseluis Carmona 05/10/17 Tinidazole (TINIDAZOLE) 500 Mg Tablet 2000 MG PO DAILY for 2 Days, #8 TAB Prov: Joseluis Carmona 05/10/17 Lidocaine (Lidocaine) 15 Gm Cream..g. 15 GM TP DAILY, #15 GM Prov: Joseluis Carmona 05/10/17 Referrals: [facility],REFERRING (PCP) Patient Instructions: Joseluis Yanez May 10, 2017 00:46
== END 2017-05-10 00:28 | disposition home or self-care (01) ==
LOC: EMR 23:59
DX: N76.0 Acute vaginitis (principal); Z88.2 Allergy status to sulfonamides; Z88.8 Allergy status to other drugs, medicaments and biological substances; I10 Essential (primary) hypertension; K21.9 Gastro-esophageal reflux disease without esophagitis; G51.0 Bell's palsy
CPT/HCPCS: 99284

== ENCOUNTER 2017-05-12 18:59 | Emergency (ER) | payer MEDICAID ==
[~2017-05-12] VITALS: Ht 160 cm; Wt 74.8 kg
[~2017-05-12 18:59] MED LIST changes: +LIDOCAINE15 GM TP; +METROGEL-VAGINA70 G1 VAGIN; +TINIDAZOLE500 MG PO
[2017-05-12 19:42] VITALS: BP 137/83
[2017-05-12 19:43] LABS: APPEARANCE,URINE CLEAR; KETONES,URINE NEGATIVE (NEGATIVE); LEUKOCYTE ESTERASE ,URINE 1+ (NEGATIVE); NITRITE,URINE NEGATIVE (NEGATIVE); PH,URINE 6.5 (4.5-8.0); PROTEIN,URINE NEGATIVE (NEGATIVE); UROBILINOGEN,URINE NORMAL MG/DL (0.0-1.0)
[2017-05-12 19:53] LABS: RBC,URINE 0-2 /HPF (0 - 2); SQUAMOUS EPITHELIAL CELL,UR FEW /LPF (NONE/OCC); WBC,URINE 0-2 /HPF (0 - 2)
[2017-05-12] MEDS ORDERED: Phenazopyridine 200mg tab ORAL ONE (20:00)
--- NOTE | 2017-05-12 20:15 | Emergency Room Report ---
History of Present Illness General Chief Complaint: Female Urogenital Problems Source: Medical Record Present Illness HPI 46-year-old female presents to the emergency department complaining of frequency with urination and dysuria x3 days. Patient states she is currently being treated for Trichomonas infection. Patient also reports exacerbation of her acid reflux and at night will have some nausea denies vomiting. Patient reports burning sensation with acid taste in her mouth. She denies fevers, chills, abdominal tenderness. She reports one episode of diarrhea yesterday. She denies blood in the stool or black tarry stools. Patient reports some is out of 10 in severity pressure sensation in the lower abdomen and believes she may have a UTI. Denies joint pain or rash. She denies . Denies CP, Palpitations, LOC, AMS, dizziness, Changes in Vision, Sensation, paresthesias, or a sudden severe headache. 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 Hx Hypertension: Yes Hx Gastrointestinal Problems: Yes - GERD Hx Neurological Problems: Yes - Cardenas's Palsy Review of Systems All Other Systems: negative except mentioned in HPI Physical Exam Vital Signs Date Time Temp Pulse Resp B/P (MAP) Pulse Ox O2 Delivery O2 Flow Rate FiO2 05/12/17 19:12 98.4 89 15 137/83 98 Room Air Sp02 EP Interpretation: reviewed, normal General Appearance: no apparent distress, alert, GCS 15, non-toxic Head: normocephalic, atraumatic Eyes: bilateral eye normal inspection, bilateral eye PERRL ENT: hearing grossly normal, normal voice Neck: full range of motion Respiratory: lungs clear, normal breath sounds, speaking full sentences Cardiovascular #1: regular rate, rhythm Gastrointestinal: normal bowel sounds, non tender, soft, no guarding, no rebound Genitourinary: normal inspection, no CVA tenderness Musculoskeletal: back normal, gait/station normal, normal range of motion, non- tender Neurologic: alert, oriented x3, responsive, motor strength/tone normal, sensory intact, speech normal Psychiatric: judgement/insight normal, memory normal, mood/affect normal Skin: normal color, no rash, warm/dry, well hydrated Medical Decision Making PA Attestation Dr. Manzano is my supervising Physician whom patient management has been discussed with. Diagnostic Impression: Primary Impression: Frequency of urination Additional Impressions: Dysuria Hx of gastroesophageal reflux (GERD) ER Course 46-year-old female presents to the emergency department complaining of frequency with urination and dysuria x3 days. Patient states she is currently being treated for Trichomonas infection. Patient also reports exacerbation of her acid reflux and at night will have some nausea denies vomiting. Patient reports burning sensation with acid taste in her mouth. She denies fevers, chills, abdominal tenderness. She reports one episode of diarrhea yesterday. She denies blood in the stool or black tarry stools. Patient reports some is out of 10 in severity pressure sensation in the lower abdomen and believes she may have a UTI. Denies joint pain or rash. She denies . Denies CP, Palpitations, LOC, AMS, dizziness, Changes in Vision, Sensation, paresthesias, or a sudden severe headache. Ddx considered but are not limited to UTi , Pyelo, STI, Stone, Cystitis, PID, GE , Vital signs: are WNL, pt. is afebrile H&PE are most consistent with urinary frequency, I suspect pelvic inflammation, however will do UA to assess for UTI. ORDERS: - UA labs are attached : no evidence of infection ED INTERVENTIONS: -Zantac PO -Pyridium d/w pt. urine results, and proper follow up with OBGYN for further evaluation of her symptoms. Pt. is stable for close outpatient follow up. d/w pt. to return to ED with worsening or new symptoms. DISCHARGE: At this time pt. is stable for d/c to home. Will provide printed patient care instructions, and any necessary prescriptions. Care plan and follow up instructions have been discussed with the patient prior to discharge. Labs Test 05/12/17 19:25 Urine Color Pale yellow Urine Appearance Clear Urine pH 6.5 (4.5-8.0) Urine Specific [place] 1.010 (1.005-1.035) Urine Protein Negative (NEGATIVE) Urine Glucose (UA) Negative (NEGATIVE) Urine Ketones Negative (NEGATIVE) Urine Occult Blood Negative (NEGATIVE) Urine Nitrite Negative (NEGATIVE) Urine Bilirubin Negative (NEGATIVE) Urine Urobilinogen Normal MG/DL (0.0-1.0) Urine Leukocyte Esterase 1+ (NEGATIVE) Urine RBC 0-2 /HPF (0 - 2) Urine WBC 0-2 /HPF (0 - 2) Urine Squamous Epithelial Cells Few /LPF (NONE/OCC) Urine Bacteria None /HPF (NONE) Urine HCG, Qualitative Negative Last Vital Signs Date Time Temp Pulse Resp B/P (MAP) Pulse Ox O2 Delivery O2 Flow Rate FiO2 05/12/17 19:42 98.4 15 137/83 98 Room Air 05/12/17 19:12 89 Disposition: HOME, SELF-CARE Condition: Stable Scripts Ranitidine Hcl* (ZANTAC*) 150 Mg Tablet 150 MG ORAL TWICE A DAY for 10 Days, #20 TAB Prov: Karen Rodriguez 05/12/17 Naproxen* (NAPROSYN*) 500 Mg Tablet 500 MG ORAL TWICE A DAY for 7 Days, #14 TAB Prov: Karen Rodriguez 05/12/17 Phenazopyridine Hcl* (PYRIDIUM*) 200 Mg Tablet 200 MG ORAL THREE TIMES A DAY for 3 Days, #9 TAB 0 Refills Prov: Karen Rodriguez 05/12/17 Patient Instructions: Urinary Frequency Additional Instructions: Take Previously prescribed medications as directed. Follow up with a Primary Care Provider in 3-5 days, even if your symptoms have resolved. --Please review list of primary care clinics, if you do not already have a primary care provider Return sooner to ED if new symptoms occur, or current symptoms become worse. - Please note that this Emergency Department Report was dictated using [employer] equipment tender technology software, occasionally this can lead to erroneous entry secondary to interpretation by the dictation equipment. Karen Rodriguez May 12, 2017 20:15
[2017-05-12] MEDS ORDERED: ZANTAC150 MG ORAL (20:16)
[2017-05-12] MEDS ORDERED: NAPROSYN500 M1 ORAL (20:16)
[2017-05-12] MEDS ORDERED: PHENAZOPYRIDIN200 MG ORAL (20:16)
[2017-05-12 20:38] VITALS: BP 137/83
== END 2017-05-12 20:40 | disposition home or self-care (01) ==
LOC: EMR 19:42
DX: R30.0 Dysuria (principal); K21.9 Gastro-esophageal reflux disease without esophagitis; R35.0 Frequency of micturition; I10 Essential (primary) hypertension; G51.0 Bell's palsy; Z88.1 Allergy status to other antibiotic agents; Z88.2 Allergy status to sulfonamides; Z88.8 Allergy status to other drugs, medicaments and biological substances
CPT/HCPCS: 81003; 81025; 99284

== ENCOUNTER 2017-07-19 16:06 | Emergency (ER) | payer MEDICAID ==
[~2017-07-19] VITALS: Ht 160 cm; Wt 77.1 kg
[~2017-07-19 16:06] MED LIST changes: +NAPROSYN500 M1 ORAL; +PHENAZOPYRIDIN200 MG ORAL; +ZANTAC150 MG ORAL
[2017-07-19 16:15] VITALS: BP 134/80
[2017-07-19 17:53] LABS: APPEARANCE,URINE CLEAR; BILIRUBIN, URINE NEGATIVE (NEGATIVE); COLOR,URINE PALE YELLOW; GLUCOSE, URINE (UA) NEGATIVE (NEGATIVE); KETONES,URINE NEGATIVE (NEGATIVE); LEUKOCYTE ESTERASE ,URINE 1+ (NEGATIVE); NITRITE,URINE NEGATIVE (NEGATIVE); PH,URINE 8 (4.5-8.0); PROTEIN,URINE NEGATIVE (NEGATIVE); UROBILINOGEN,URINE NORMAL MG/DL (0.0-1.0)
--- NOTE | 2017-07-19 18:05 | Emergency Room Report ---
History of Present Illness General Chief Complaint: Female Urogenital Problems Source: Patient, Medical Record Present Illness HPI Patient presents with dysuria and suprapubic pain. It's more on the right-hand side. She's had bladder infections in the past. The last time was 2 months ago. Just complaining about a smelling discharge at this time. Is also some itching. Her last period was 3 weeks ago. The pain is 10/10 constant. It radiates somewhat to her back. 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 Hx Hypertension: Yes Hx Gastrointestinal Problems: Yes - GERD Hx Neurological Problems: Yes - Cardenas's Palsy Physical Exam Vital Signs Date Time Temp Pulse Resp B/P (MAP) Pulse Ox O2 Delivery O2 Flow Rate FiO2 07/19/17 16:10 98.1 105 16 134/80 99 Room Air Sp02 EP Interpretation: reviewed, normal General Appearance: well appearing, no apparent distress, GCS 15 Head: normocephalic Eyes: bilateral eye normal inspection, bilateral eye PERRL ENT: moist mucus membranes Neck: supple Respiratory: lungs clear, normal breath sounds Cardiovascular #1: regular rate, rhythm Cardiovascular #2: 2+ radial (R) Gastrointestinal: normal inspection, normal bowel sounds, no mass, non- distended, tenderness - suprapubic, more on R Genitourinary: os closed, other - anterior uterus with some R adnexal tenderness and minimal CMT. Grayish watery discharge Musculoskeletal: back normal, gait/station normal, normal range of motion Neurologic: alert, oriented x3, grossly normal Psychiatric: mood/affect normal Skin: normal inspection, warm/dry Medical Decision Making Diagnostic Impression: Primary Impression: Suprapubic pain Additional Impression: Trichomonal vaginitis ER Course Patient with suprapubic pain and d/c - possibly dysuria. DDx: PID, ovarian cyst , UTI, vaginitis. Exam against appendicitis and no other GI symptoms. Evaluation with labs. Treatment for pain. Patient has evidence of Trichomonas. She has multiple medication allergies. I will use tinidazole. In addition to that I have a low suspicion for possible PID and therefore the patient be treated with Levaquin for 14 days. She has a problem with her [employer] and I anticipate that if she's going resistant gonorrhea that this will be determined. Improved with treatment. We discussed the need for her partner to seek treatment also. Patient stable for outpatient observation and treatment Laboratory Tests Test 07/19/17 16:14 Urine Color Pale yellow Urine Appearance Clear Urine pH 8 (4.5-8.0) Urine Specific [place] 1.015 (1.005-1.035) Urine Protein Negative (NEGATIVE) Urine Glucose (UA) Negative (NEGATIVE) Urine Ketones Negative (NEGATIVE) Urine Occult Blood Negative (NEGATIVE) Urine Nitrite Negative (NEGATIVE) Urine Bilirubin Negative (NEGATIVE) Urine Urobilinogen Normal MG/DL (0.0-1.0) Urine Leukocyte Esterase 1+ (NEGATIVE) H Urine RBC 0-2 /HPF (0 - 2) Urine WBC 2-4 /HPF (0 - 2) Urine Squamous Epithelial Cells Many /LPF (NONE/OCC) H Urine Bacteria Few /HPF (NONE) Urine Trichomonas Few /HPF (NONE) H Urine HCG, Qualitative Negative Chlamydia trachomatis RNA Pending Neisseria gonorrhoeae RNA Pending Microbiology Date/Time Source Procedure Growth Status 07/19/17 17:15 Vaginal Wet Prep - Final Complete Last Vital Signs Date Time Temp Pulse Resp B/P (MAP) Pulse Ox O2 Delivery O2 Flow Rate FiO2 07/19/17 19:00 98.1 99 16 128/75 99 Room Air Status: improved Disposition: HOME, SELF-CARE Condition: Improved Scripts Metronidazole* (METROGEL-VAGINAL*) 70 Gm Gel.w.appl 1 APPL VAGIN BEDTIME for 7 Days, GM Prov: Arnold Soto M.D. 07/19/17 Ibuprofen* (MOTRIN*) 600 Mg Tablet 600 MG ORAL Q6H Y for For Pain, #20 TAB Prov: Arnold Soto M.D. 07/19/17 Tinidazole (TINDAMAX) 500 Mg Tablet 2 GM PO ONCE, #4 TAB take after eating Prov: Arnold Soto M.D. 07/19/17 Levofloxacin* (LEVAQUIN*) 500 Mg Tablet 500 MG ORAL DAILY, #14 TAB Prov: Arnold Soto M.D. 07/19/17 Referrals: [facility],REFERRING (PCP) Arnold Soto M.D. Jul 19, 2017 18:05
[2017-07-19 18:15] VITALS: BP 125/75
[2017-07-19] MEDS ORDERED: TINDAMAX500 MG PO (18:42)
[2017-07-19] MEDS ORDERED: LEVAQUIN500 MG ORAL (18:42)
[2017-07-19] MEDS ORDERED: IBUPROFEN600 MG ORAL (18:42)
[2017-07-19] MEDS ORDERED: Levofloxacin 500mg tab ORAL ONE (18:45)
[2017-07-19] MEDS ORDERED: METROGEL-VAGINA70 G1 VAGIN (18:46)
[2017-07-19 19:00] VITALS: BP 128/75
== END 2017-07-19 19:00 | disposition home or self-care (01) ==
LOC: EMR 17:15
DX: A59.01 Trichomonal vulvovaginitis (principal); R10.2 Pelvic and perineal pain; K21.9 Gastro-esophageal reflux disease without esophagitis; I10 Essential (primary) hypertension; G51.0 Bell's palsy; Z88.1 Allergy status to other antibiotic agents; Z88.2 Allergy status to sulfonamides; Z88.8 Allergy status to other drugs, medicaments and biological substances
CPT/HCPCS: 81003; 81025; 87210; 87491; 87590; 99284

== ENCOUNTER 2017-07-21 17:02 | Emergency (ER) | payer MEDICAID ==
[~2017-07-21] VITALS: Ht 160 cm; Wt 74.8 kg
[~2017-07-21 17:02] MED LIST changes: +LEVAQUIN500 MG ORAL; +TINDAMAX500 MG PO
[2017-07-21 17:16] VITALS: BP 141/79
--- NOTE | 2017-07-21 17:24 | Emergency Room Report ---
History of Present Illness General Chief Complaint: General Complaint Source: Patient Present Illness HPI Patient reports that she was recently put on Levaquin and tinidazole She had taken two to 3 Levaquin She took a pill at approximately 1:00 this afternoon Soon after that she began feeling a irritation sensation in her throat She did feel a swelling sensation as well Denies any change with her voice denies any difficulty breathing or swallowing Denies any chest pain or shortness of breath she does report that she felt hot and also felt sensation of abdominal discomfort as well She reports that she has taken Cipro before without reaction Allergies: Coded Allergies: NITROFURANTOIN (Verified Allergy, Severe, Anaphylaxis, 07/08/16) CEPHALEXIN (Unverified Allergy, Mild, 04/15/16) METRONIDAZOLE (Unverified Allergy, Mild, 04/15/16) SULFAMETHOXAZOLE (Verified Allergy, Unknown, 01/28/17) TRIMETHOPRIM (Verified Allergy, Unknown, 01/28/17) Patient History Past Medical History: see triage record Pertinent Family History: none Last Menstrual Period: 07/12/17 Now: No Reviewed Nursing Documentation: PMH: Agreed, PSxH: Agreed Nursing Documentation-PMH 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 Hx Hypertension: Yes Hx Gastrointestinal Problems: Yes - GERD, BLADDER INFECTION Hx Neurological Problems: Yes - Cardenas's Palsy Review of Systems All Other Systems: negative except mentioned in HPI Physical Exam Vital Signs Date Time Temp Pulse Resp B/P (MAP) Pulse Ox O2 Delivery O2 Flow Rate FiO2 07/21/17 17:08 98.2 84 21 141/79 99 Room Air Sp02 EP Interpretation: reviewed, normal General Appearance: well appearing, no apparent distress Head: normocephalic, atraumatic Eyes: bilateral eye PERRL, bilateral eye EOMI ENT: hearing grossly normal, normal pharynx, TMs + canals normal, uvula midline , other - No stridor, no change in voice Neck: full range of motion, supple, no meningismus, no bony tend Respiratory: lungs clear, normal breath sounds, no rhonchi, no respiratory distress, no retraction, no accessory muscle use Cardiovascular #1: normal peripheral pulses, regular rate, rhythm, no edema, no gallop, no JVD, no murmur Gastrointestinal: normal bowel sounds, non tender, soft, no mass, no organomegaly, non-distended, no guarding, no hernia, no pulsatile mass, no rebound Musculoskeletal: normal inspection Neurologic: oriented x3, responsive, certified residential medication aide III-XII nml as tested, motor strength/ tone normal, sensory intact Psychiatric: mood/affect normal Skin: normal color, no rash, warm/dry, palpation normal Lymphatic: normal inspection, no adenopathy Medical Decision Making Diagnostic Impression: Primary Impression: Allergic reaction ER Course Patient has sensitivity to multiple medications At this time seems to have findings in line with again allergic reaction Patient was treated immediately in the emergency room with IM injection of steroids as well She was observed in has done well Feels her throat is significantly improved And at this time stable for close followup Patient will be stopping her medications currently Last Vital Signs Date Time Temp Pulse Resp B/P (MAP) Pulse Ox O2 Delivery O2 Flow Rate FiO2 07/21/17 17:08 98.2 84 21 141/79 99 Room Air Status: improved Disposition: HOME, SELF-CARE Condition: Improved Scripts Ranitidine Hcl* (ZANTAC*) 150 Mg Tablet 150 MG ORAL TWICE A DAY, #30 TAB Prov: KOFI GALLAGHER D.O. 07/21/17 Diphenhydramine Hcl* (BENADRYL*) 25 Mg Capsule 25 MG ORAL Q6H Y for Itching, #30 CAP Prov: KOFI GALLAGHER D.O. 07/21/17 Prednisone* (PREDNISONE*) 20 Mg Tablet 20 MG ORAL BID, #10 TAB Prov: KOFI GALLAGHER D.O. 07/21/17 Additional Instructions: Patient is provided with the discharge instructions notified to follow up with primary doctor in the next 2-3 days otherwise return to the er with any worsening symptoms. Please note that this report is being documented using [employer] technology. This can lead to erroneous entry secondary to incorrect interpretation by the dictating instrument. KOFI GALLAGHER D.O. Jul 21, 2017 17:24
[2017-07-21] MEDS ORDERED: Solu-MEDROL 125mg Inj IM ONE (17:30)
[2017-07-21] MEDS ORDERED: PREDNISONE20 MG ORAL (17:48)
[2017-07-21] MEDS ORDERED: BENADRYL25 MG ORAL (17:48)
[2017-07-21] MEDS ORDERED: RANITIDINE HCL150 MG ORAL (17:48)
[2017-07-21 18:07] VITALS: BP 141/79
== END 2017-07-21 18:32 | disposition home or self-care (01) ==
LOC: EMR 17:33
DX: T78.40XA Allergy, unspecified, initial encounter (principal); X58.XXXA Exposure to other specified factors, initial encounter; R20.8 Other disturbances of skin sensation; I10 Essential (primary) hypertension; Z88.2 Allergy status to sulfonamides; Z88.8 Allergy status to other drugs, medicaments and biological substances; Z88.1 Allergy status to other antibiotic agents
CPT/HCPCS: 96372; 99284; J2930

== ENCOUNTER 2017-08-21 18:43 | Emergency (ER) | payer MEDICAID ==
[~2017-08-21] VITALS: Ht 160 cm; Wt 73.9 kg
[~2017-08-21 18:43] MED LIST changes: +BENADRYL25 MG ORAL; +PREDNISONE20 MG ORAL
[2017-08-21 19:27] VITALS: BP 118/76
[2017-08-21] MEDS ORDERED: ROBAXIN-750750 MG PO (19:50)
[2017-08-21] MEDS ORDERED: IBUPROFEN600 MG ORAL (19:50)
[2017-08-21 19:54] VITALS: BP 118/76
--- NOTE | 2017-08-21 21:43 | Emergency Room Report ---
History of Present Illness General Chief Complaint: Pain Source: Patient Present Illness HPI The patient is a 47-year-old female presenting for left shoulder pain which began 2 weeks prior for no known reason. She denies any known injury. Pain is a 6/10 dull ache and does not radiate. Worse with movement. She denies any other symptoms including N, V, F, chills, rash, CP, SOB, numbness Allergies: Coded Allergies: NITROFURANTOIN (Verified Allergy, Severe, Anaphylaxis, 07/08/16) CEPHALEXIN (Unverified Allergy, Mild, 04/15/16) METRONIDAZOLE (Unverified Allergy, Mild, 04/15/16) SULFAMETHOXAZOLE (Verified Allergy, Unknown, 01/28/17) TRIMETHOPRIM (Verified Allergy, Unknown, 01/28/17) Patient History Past Medical History: see triage record Pertinent Family History: none Last Menstrual Period: 07/26/17 Now: No : 1 Para: 1 Reviewed Nursing Documentation: PMH: Agreed, PSxH: Agreed Nursing Documentation-PMH 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 Hx Hypertension: Yes Hx Gastrointestinal Problems: Yes - GERD, BLADDER INFECTION Hx Neurological Problems: Yes - Cardenas's Palsy Review of Systems All Other Systems: negative except mentioned in HPI Physical Exam Vital Signs Date Time Temp Pulse Resp B/P (MAP) Pulse Ox O2 Delivery O2 Flow Rate FiO2 08/21/17 18:51 97.9 86 14 118/76 98 Room Air Sp02 EP Interpretation: reviewed, normal General Appearance: no apparent distress, alert, GCS 15, non-toxic Head: normocephalic, atraumatic Eyes: bilateral eye normal inspection, bilateral eye PERRL ENT: hearing grossly normal, normal pharynx, no angioedema, normal voice Neck: full range of motion, supple/symm/no masses Musculoskeletal: normal inspection, back normal, gait/station normal, normal range of motion, tender - L anterior and lateral deltoid. L trapezius Neurologic: alert, oriented x3, responsive, motor strength/tone normal, sensory intact, speech normal Psychiatric: judgement/insight normal, memory normal, mood/affect normal, no suicidal/homicidal ideation Skin: normal color, no rash, warm/dry, well hydrated Medical Decision Making PA Attestation Dr. Carmona is my supervising physician. Patient management was discussed with my supervising physician Diagnostic Impression: Primary Impression: Left shoulder strain Qualified Codes: S46.912A - Strain of unspecified muscle, fascia and tendon at shoulder and upper arm level, left arm, initial encounter ER Course The patient is a 47-year-old female presenting for left shoulder pain which began 2 weeks prior for no known reason. Ddx considered include but not limited to sprain/strain, fracture, contusion PE: Vitals WNL. NAD. L shoulder: Skin intact. No erythema or edema. Sensation intact to light touch. Full AROM. TTP over the anterior and lateral deltoids and trapezius. No joint laxity. No obvious deformity X-rays unremarkable The patient will be discharged home with a prescription for pain medication and muscle relaxer. She will follow up with her primary doctor. ER precautions are given Other X-Ray Diagnostic Results Other X-Ray Diagnostic Results : X-Ray ordered: L shoulder # of Views/Limited Vs Complete: 3 View Indication: Pain EP Interpretation: Yes PA Xray: Interpretation reviewed, by supervising MD, and agrees with findings. Interpretation: no dislocation, no soft tissue swelling, no fractures Impression: No acute disease Electronically Signed by: Luis Jimenez PA-C Last Vital Signs Date Time Temp Pulse Resp B/P (MAP) Pulse Ox O2 Delivery O2 Flow Rate FiO2 08/21/17 19:54 97.9 14 118/76 98 Room Air 08/21/17 18:51 86 Status: improved Disposition: HOME, SELF-CARE Condition: Improved Scripts Ibuprofen* (MOTRIN*) 600 Mg Tablet 600 MG ORAL Q8H Y for For Pain, #30 TAB 0 Refills Prov: LUIS JIMNEEZ P.A. 08/21/17 Methocarbamol* (ROBAXIN-750*) 750 Mg Tablet 750 MG PO TID, #21 TAB 0 Refills Prov: LUIS JIMENEZ P.A. 08/21/17 Referrals: [facility],REFERRING (PCP) Patient Instructions: Muscle Strain Additional Instructions: I discussed my findings with the patient. All questions and concerns have been answered. Treatment and medication compliance have been addressed. I advised the patient that they need to follow up with PMD in 3-5 days. Return to ED if symptoms worsen, new symptoms arise, or if needed for any reason. Patient verbalized understanding of discharge instructions. LUIS JIMENEZ Aug 21, 2017 21:43
--- NOTE | 2017-08-22 09:55 | Diagnostic Imaging Report ---
Indication: Left shoulder pain Technique: XRAY SHOULDER MIN 3V LEFT Comparison: None Findings: There is no radiographically evident acute fracture or dislocation. Bone mineralization is normal. Soft tissues are grossly unremarkable. Impression: No acute osseous abnormality.
== END 2017-08-21 20:00 | disposition home or self-care (01) ==
LOC: EMR 19:55
DX: S46.912A Strain of unspecified muscle, fascia and tendon at shoulder and upper arm level, left arm, initial encounter (principal); X58.XXXA Exposure to other specified factors, initial encounter; Y92.9 Unspecified place or not applicable; I10 Essential (primary) hypertension; Z88.2 Allergy status to sulfonamides; Z88.8 Allergy status to other drugs, medicaments and biological substances; Z88.1 Allergy status to other antibiotic agents
CPT/HCPCS: 99284

== ENCOUNTER 2017-09-23 18:41 | Emergency (ER) | payer MEDICAID ==
[~2017-09-23] VITALS: Ht 160 cm; Wt 72.6 kg
[~2017-09-23 18:41] MED LIST changes: +ROBAXIN-750750 MG PO
[2017-09-23 19:15] VITALS: BP 139/93
[2017-09-23 19:24] LABS: APPEARANCE,URINE CLEAR; BILIRUBIN, URINE NEGATIVE (NEGATIVE); COLOR,URINE PALE YELLOW; GLUCOSE, URINE (UA) NEGATIVE (NEGATIVE); KETONES,URINE NEGATIVE (NEGATIVE); LEUKOCYTE ESTERASE ,URINE 3+ (NEGATIVE); NITRITE,URINE NEGATIVE (NEGATIVE); PH,URINE 5 (4.5-8.0); PROTEIN,URINE NEGATIVE (NEGATIVE); UROBILINOGEN,URINE NORMAL MG/DL (0.0-1.0)
[2017-09-23] MEDS ORDERED: Fluconazole 100mg tab ORAL ONE (20:00)
--- NOTE | 2017-09-23 20:01 | Emergency Room Report ---
History of Present Illness General Chief Complaint: Female Urogenital Problems Present Illness HPI 47-year-old female presents to the emergency department complaining of dysuria, frequency and urgency x3 days. Patient also reports vaginal pruritus, and malodorous discharge x2 days. Patient reports unprotected intercourse with her monogamous partner. Patient denies swollen tender lymph nodes, vaginal lesions , fevers, chills or abdominal tenderness. Patient denies nausea or vomiting. Denies CP, Palpitations, LOC, AMS, dizziness, Changes in Vision, Sensation, paresthesias, or a sudden severe headache. 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 Hx Hypertension: Yes Hx Gastrointestinal Problems: Yes - GERD, BLADDER INFECTION Hx Neurological Problems: Yes - Cardenas's Palsy Review of Systems All Other Systems: negative except mentioned in HPI Physical Exam Vital Signs Date Time Temp Pulse Resp B/P (MAP) Pulse Ox O2 Delivery O2 Flow Rate FiO2 09/23/17 18:47 99.0 98 20 139/93 99 Room Air Sp02 EP Interpretation: reviewed, normal General Appearance: no apparent distress, alert, GCS 15, non-toxic Head: normocephalic, atraumatic ENT: hearing grossly normal, normal voice Neck: full range of motion Respiratory: chest non-tender, lungs clear, normal breath sounds, speaking full sentences Cardiovascular #1: regular rate, rhythm Gastrointestinal: normal bowel sounds, non tender, soft Rectal: deferred Genitourinary: normal inspection, no CVA tenderness, deferred - pelvic exam is deferred. Musculoskeletal: back normal, gait/station normal, normal range of motion, non- tender Neurologic: alert, oriented x3, responsive, motor strength/tone normal, sensory intact, normal gait, speech normal, grossly normal Psychiatric: judgement/insight normal Skin: normal color, no rash, warm/dry, well hydrated Lymphatic: no adenopathy Medical Decision Making PA Attestation Dr. garza is my supervising Physician whom patient management has been discussed with. Diagnostic Impression: Primary Impression: Vaginitis Qualified Codes: N76.0 - Acute vaginitis Additional Impression: Urinary tract infection Qualified Codes: N30.00 - Acute cystitis without hematuria ER Course 47-year-old female presents to the emergency department complaining of dysuria, frequency and urgency x3 days. Patient also reports vaginal pruritus, and malodorous discharge x2 days. Patient reports unprotected intercourse with her monogamous partner. Patient denies swollen tender lymph nodes, vaginal lesions , fevers, chills or abdominal tenderness. Patient denies nausea or vomiting. Denies CP, Palpitations, LOC, AMS, dizziness, Changes in Vision, Sensation, paresthesias, or a sudden severe headache. Ddx considered but are not limited to UTi , Pyelo, STI, Stone, Cystitis, vaginal laceration, vaginitis. Vital signs: are WNL, pt. is afebrile H& PE are most consistent with: UTI and possible BV/ yeast vaginitis will treat clinically for these. ORDERS: - UA labs are attached : most consistent with contamination, however due to pt. being symptomatic, and elevated leukocytes will treat as UTI while awaiting final micro results. ED INTERVENTIONS: -Pyridium PO -Diflucan PO -I do not identify an emergent condition at this time. With current presentation , pt. is stable for close outpatient follow up and conservative treatment. D/ w pt. to return promptly to ED with worsening or new symptoms.- Pt. verbalizes' understanding and agreement with proposed treatment plan.proposed treatment plan. DISCHARGE: At this time pt. is stable for d/c to home. Will provide printed patient care instructions, and any necessary prescriptions. Care plan and follow up instructions have been discussed with the patient prior to discharge. Labs Test 09/23/17 19:00 Urine Color Pale yellow Urine Appearance Clear Urine pH 5 (4.5-8.0) Urine Specific [place] 1.015 (1.005-1.035) Urine Protein Negative (NEGATIVE) Urine Glucose (UA) Negative (NEGATIVE) Urine Ketones Negative (NEGATIVE) Urine Occult Blood Negative (NEGATIVE) Urine Nitrite Negative (NEGATIVE) Urine Bilirubin Negative (NEGATIVE) Urine Urobilinogen Normal MG/DL (0.0-1.0) Urine Leukocyte Esterase 3+ (NEGATIVE) Urine RBC 0-2 /HPF (0 - 2) Urine WBC 2-4 /HPF (0 - 2) Urine Squamous Epithelial Cells Few /LPF (NONE/OCC) Urine Bacteria Few /HPF (NONE) Urine HCG, Qualitative Negative Last Vital Signs Date Time Temp Pulse Resp B/P (MAP) Pulse Ox O2 Delivery O2 Flow Rate FiO2 09/23/17 18:47 99.0 98 20 139/93 99 Room Air Disposition: HOME, SELF-CARE Condition: Stable Scripts Phenazopyridine Hcl* (PYRIDIUM*) 200 Mg Tablet 200 MG ORAL THREE TIMES A DAY for 3 Days, #9 TAB 0 Refills Prov: Karen Rodriguez 09/23/17 Ciprofloxacin Hcl* (CIPROFLOXACIN HCL*) 500 Mg Tablet 500 MG ORAL EVERY 12 HOURS for 3 Days, #6 TAB 0 Refills Prov: Karen Rodriguez 09/23/17 Fluconazole (FLUCONAZOLE) 100 Mg Tablet 100 MG ORAL DAILY for 3 Days, #3 TAB 0 Refills Prov: Karen Rodriguez. 09/23/17 Metronidazole* (METROGEL-VAGINAL*) 70 Gm Gel.w.appl 1 APPL VAGIN EVERY 12 HOURS, #70 GM Prov: Karen Rodriguez 09/23/17 Patient Instructions: Urinary Tract Infection, Vaginitis Additional Instructions: Take medications as directed. Follow up with a Primary Care Provider in 3-5 days, even if your symptoms have resolved. --Please review list of primary care clinics, if you do not already have a primary care provider Return sooner to ED if new symptoms occur, or current symptoms become worse. - Please note that this Emergency Department Report was dictated using [employer] medical records coder technology software, occasionally this can lead to erroneous entry secondary to interpretation by the dictation equipment. Karen Rodriguez Sep 23, 2017 20:01
[2017-09-23] MEDS ORDERED: FLUCONAZOLE100 MG ORAL (20:03)
[2017-09-23] MEDS ORDERED: PHENAZOPYRIDIN200 MG ORAL (20:03)
[2017-09-23] MEDS ORDERED: METROGEL-VAGINA70 G1 VAGIN (20:03)
[2017-09-23] MEDS ORDERED: CIPROFLOXACIN500 M2 ORAL (20:03)
[2017-09-23 20:13] VITALS: BP 124/80
== END 2017-09-23 20:13 | disposition home or self-care (01) ==
LOC: EMR 19:20
DX: N76.0 Acute vaginitis (principal); N39.0 Urinary tract infection, site not specified; R30.0 Dysuria; R35.0 Frequency of micturition; R39.15 Urgency of urination; Z88.2 Allergy status to sulfonamides; Z88.1 Allergy status to other antibiotic agents; I10 Essential (primary) hypertension; K21.9 Gastro-esophageal reflux disease without esophagitis; G51.0 Bell's palsy; Z87.448 Personal history of other diseases of urinary system
CPT/HCPCS: 81003; 81025; 99283

== ENCOUNTER 2017-09-29 18:33 | Emergency (ER) | payer MEDICAID ==
[~2017-09-29] VITALS: Ht 160 cm; Wt 74.4 kg
[~2017-09-29 18:33] MED LIST changes: +CIPROFLOXACIN500 M2 ORAL; +FLUCONAZOLE100 MG ORAL
[2017-09-29 19:00] VITALS: BP 124/74
[2017-09-29 19:41] LABS: BASOPHILS % (AUTO) 1.2 % (0.0-2.0); EOSINOPHILS % (AUTO) 5.4 % (0.0-3.0); HEMATOCRIT 33.1 % (37.0-47.0); LYMPHOCYTES % (AUTO) 35.5 % (20.0-45.0); MEAN CORPUSCULAR VOLUME 86 FL (80-99); MONOCYTES % (AUTO) 7.6 % (1.0-10.0); NEUTROPHILS % (AUTO) 50.4 % (45.0-75.0); PLATELET COUNT 364 K/UL (150-450); RED BLOOD COUNT 3.86 M/UL (4.20-5.40); RED CELL DISTRIBUTION WIDTH 14.2 % (11.6-14.8); WHITE BLOOD COUNT 7.5 K/UL (4.8-10.8)
[2017-09-29 19:57] LABS: ANION GAP 6 mmol/L (5-15); BLOOD UREA NITROGEN 15 mg/dL (7-18); CALCIUM 8.3 MG/DL (8.5-10.1); CARBON DIOXIDE 30 MMOL/L (21-32); CHLORIDE 101 MMOL/L (98-107); CREATININE 1.1 MG/DL (0.55-1.30); POTASSIUM 2.9 MMOL/L (3.5-5.1); SODIUM 137 MMOL/L (136-145)
[2017-09-29 20:06] LABS: ALANINE AMINOTRANSFERASE 15 U/L (12-78); ALBUMIN 3.5 G/DL (3.4-5.0); ALBUMIN/GLOBULIN RATIO 0.9 (1.0-2.7); ALKALINE PHOSPHATASE 77 U/L (46-116); ASPARTATE AMINO TRANSFERASE 18 U/L (15-37); BILIRUBIN,TOTAL 0.2 MG/DL (0.2-1.0); CREATINE KINASE 293 U/L (26-308)
[2017-09-29 21:00] VITALS: BP 118/73
[2017-09-29] MEDS ORDERED: Albuterol ud Inhalation HHN ONE (21:00)
[2017-09-29] MEDS ORDERED: Ketorolac 30mg Inj IV ONE (21:00)
--- NOTE | 2017-09-29 21:07 | Emergency Room Report ---
History of Present Illness General Chief Complaint: Chest Pain Source: Patient Present Illness HPI Patient presents with 2 days of left-sided chest pain, back pain and left arm and hand numbness. Not exertional. Somewhat positional. The pain she rates now at 10/10. She's been taking muscle relaxants without help. In addition to that she took some Aleve earlier. This helped slightly. The pain radiates to her shoulder area. 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 The numbness is mainly in her palm. She is on Triamterene and other meds for HTN. She felt feverish but not documented. Slightly productive cough with some wheezing. She is not using an inhaler. She was seen here and prescribed a muscle relaxant in August. The diagnosis was L shoulder strain. She said it helped at that time but not this time. Denies stroke or weakness. No headache. No dysuria. LNMP was last year. Recent treatment for vaginitis. 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 Hx Hypertension: Yes Hx Gastrointestinal Problems: Yes - GERD, BLADDER INFECTION Hx Neurological Problems: Yes - Cardenas's Palsy Review of Systems All Other Systems: negative except mentioned in HPI Physical Exam Vital Signs Date Time Temp Pulse Resp B/P (MAP) Pulse Ox O2 Delivery O2 Flow Rate FiO2 09/29/17 18:39 98.1 80 18 132/87 99 Room Air 09/29/17 19:00 99 Sp02 EP Interpretation: reviewed, normal General Appearance: well appearing, no apparent distress, GCS 15 Head: normocephalic Eyes: bilateral eye normal inspection, bilateral eye PERRL ENT: moist mucus membranes Neck: supple Respiratory: chest non-tender - but back scapular muscles are, lungs clear, normal breath sounds Cardiovascular #1: regular rate, rhythm, no edema Cardiovascular #2: 2+ radial (R), 2+ radial (L) Gastrointestinal: normal inspection, normal bowel sounds, non tender, no mass, non-distended Musculoskeletal: digits/nails normal, gait/station normal, normal range of motion, other - see chest Neurologic: alert, oriented x3, motor strength/tone normal, DTRs symmetric, other - subjective sens change L hand Psychiatric: anxious - minimally Skin: normal inspection, warm/dry Medical Decision Making Diagnostic Impression: Primary Impression: Chest pain Qualified Codes: R07.9 - Chest pain, unspecified Additional Impressions: Hypokalemia H/O wheezing ER Course Patient presents with 2 days of chest pain and L hand subjective numbness. DDx : ACS, AMI, muscle spasm, chest wall pain, pleurisy, bronchitis, bronchospasm, paresthesias, GERD amongst others. Exam is inconsistent with CVA with only localized hand subjective symptoms. Evaluation with EKG, CXR, labs. CT not indicated. Based on VS and exam, doubt PE. Patient will be treated with pepcid and zofran. EKG without injury. CXR normal. Labs with low potassium and +eosinophils. Potassium given and discussed. Improved with treatment. Patient stable for outpatient observation and treatment. Laboratory Tests Test 09/29/17 19:00 09/29/17 19:17 White Blood Count 7.5 K/UL (4.8-10.8) Red Blood Count 3.86 M/UL (4.20-5.40) L Hemoglobin 10.0 G/DL (12.0-16.0) L Hematocrit 33.1 % (37.0-47.0) L Mean Corpuscular Volume 86 FL (80-99) Mean Corpuscular Hemoglobin 25.9 PG (27.0-31.0) L Mean Corpuscular Hemoglobin Concent 30.2 G/DL (32.0-36.0) L Red Cell Distribution Width 14.2 % (11.6-14.8) Platelet Count 364 K/UL (150-450) Mean Platelet Volume 6.4 FL (6.5-10.1) L Neutrophils (%) (Auto) 50.4 % (45.0-75.0) Lymphocytes (%) (Auto) 35.5 % (20.0-45.0) Monocytes (%) (Auto) 7.6 % (1.0-10.0) Eosinophils (%) (Auto) 5.4 % (0.0-3.0) H Basophils (%) (Auto) 1.2 % (0.0-2.0) Sodium Level 137 MMOL/L (136-145) Potassium Level 2.9 MMOL/L (3.5-5.1) L Chloride Level 101 MMOL/L (98-107) Carbon Dioxide Level 30 MMOL/L (21-32) Anion Gap 6 mmol/L (5-15) Blood Urea Nitrogen 15 mg/dL (7-18) Creatinine 1.1 MG/DL (0.55-1.30) Estimate Glomerular Filtration Rate > 60 mL/min (>60) Glucose Level 124 MG/DL (74-106) H Calcium Level 8.3 MG/DL (8.5-10.1) L Total Bilirubin 0.2 MG/DL (0.2-1.0) Aspartate Amino Transferase (AST) 18 U/L (15-37) Alanine Aminotransferase (ALT) 15 U/L (12-78) Alkaline Phosphatase 77 U/L (46-116) Total Creatine Kinase 293 U/L (26-308) Troponin I 0.000 ng/mL (0.000-0.056) Pro-B-Type Natriuretic Peptide 16 pg/mL (0-125) Total Protein 7.6 G/DL (6.4-8.2) Albumin 3.5 G/DL (3.4-5.0) Globulin 4.1 g/dL Albumin/Globulin Ratio 0.9 (1.0-2.7) L Urine Opiates Screen Negative (NEGATIVE) Urine Barbiturates Screen Negative (NEGATIVE) Phencyclidine (PCP) Screen Negative (NEGATIVE) Urine Amphetamines Screen Negative (NEGATIVE) Urine Benzodiazepines Screen Negative (NEGATIVE) Urine Cocaine Screen Negative (NEGATIVE) Urine Marijuana (THC) Screen Negative (NEGATIVE) EKG Diagnostic Results Rate: normal Rhythm: NSR ST Segments: no acute changes Rhythm Strip Diag. Results EP Interpretation: yes Rhythm: NSR, no ectopy Chest X-Ray Diagnostic Results Chest X-Ray Diagnostic Results : Chest X-Ray Ordered: Yes # of Views/Limited/Complete: 1 View Indication: Chest Pain EP Interpretation: Yes Interpretation: no consolidation, no effusion, no pneumothorax Impression: No acute disease Electronically Signed by: Arnold Soto MD Last Vital Signs Date Time Temp Pulse Resp B/P (MAP) Pulse Ox O2 Delivery O2 Flow Rate FiO2 09/29/17 22:55 81 21 126/73 98 Room Air 09/29/17 22:55 98.0 21 Status: improved Disposition: HOME, SELF-CARE Condition: Improved Scripts Methocarbamol* (ROBAXIN*) 500 Mg Tablet 500 MG PO TID, #16 TAB 0 Refills Prov: Arnold Soto M.D. 09/29/17 Naproxen* (NAPROSYN*) 375 Mg Tablet 375 MG ORAL TID, #20 TAB 0 Refills Prov: Arnold Soto M.D. 09/29/17 Potassium Bicarbonate (POTASSIUM BICARBONATE) 500 Gm Powder 500 GM MC DAILY for 7 Days, GM 1 Refill Prov: Arnold Soto M.D. 09/29/17 Albuterol Sulfate* (ALBUTEROL SULFATE MDI*) 8.5 Gm Hfa.aer.ad 2 PUFF INH Q6H, #1 EA 0 Refills Prov: Arnold Soto M.D. 09/29/17 Famotidine (PEPCID) 20 Mg Tablet 20 MG ORAL DAILY, #30 TAB 0 Refills Prov: Arnold Soto M.D. 09/29/17 Referrals: [facility],REFERRING (PCP) Arnold Soto M.D. Sep 29, 2017 21:07
[2017-09-29] MEDS ORDERED: NAPROXEN375 MG ORAL (22:48)
[2017-09-29] MEDS ORDERED: ROBAXIN500 MG PO (22:48)
[2017-09-29] MEDS ORDERED: ALBUTEROL SULF8.5 GM INH (22:48)
[2017-09-29] MEDS ORDERED: PEPCID20 MG ORAL (22:48)
[2017-09-29] MEDS ORDERED: POTASSIUM BICA MC (22:48)
[2017-09-29 22:55] VITALS: BP 126/73
--- NOTE | 2017-09-30 11:21 | Diagnostic Imaging Report ---
Indication: Dyspnea Comparison: None A single view chest radiograph was obtained. Findings: Cardiomediastinal appearance is within normal limits for age. Pulmonary vascularity is appropriate. The diaphragmatic contour is smooth and costophrenic angles are sharp. No pleural effusions are identified. The bones are unremarkable. Impression: No acute findings
--- NOTE | 2017-09-30 15:47 | Cardiology Report ---
APPROVED REPORT EKG Measurement Heart [id number] Normal sinus rhythm Possible Left atrial enlargement Nonspecific T wave abnormality Prolonged QT Abnormal ECG
== END 2017-09-29 22:55 | disposition home or self-care (01) ==
LOC: EMR 19:00
DX: R07.9 Chest pain, unspecified (principal); E87.6 Hypokalemia; G51.0 Bell's palsy; K21.9 Gastro-esophageal reflux disease without esophagitis; I10 Essential (primary) hypertension; Z88.8 Allergy status to other drugs, medicaments and biological substances; Z88.2 Allergy status to sulfonamides; Z88.1 Allergy status to other antibiotic agents
CPT/HCPCS: 36415; 71045; 80053; 80307; 82550; 83880; 84484; 85025; 93005; 94640; 96374; 96375; 99284; J1885; J2405; S0028; J8499

== ENCOUNTER 2017-10-03 15:23 | Emergency (ER) | payer MEDICAID ==
[~2017-10-03] VITALS: Ht 160 cm; Wt 74.8 kg
[~2017-10-03 15:23] MED LIST changes: +ALBUTEROL SULF8.5 GM INH; +NAPROXEN375 MG ORAL; +PEPCID20 MG ORAL; +POTASSIUM BICA MC; +ROBAXIN500 MG PO
[2017-10-03] MEDS ORDERED: Dicyclomine HCl 10mg/5ml oral soln ORAL ONE (16:00)
[2017-10-03] MEDS ORDERED: Lidocaine 2% Visc 15ml soln ORAL ONE (16:00)
[2017-10-03] MEDS ORDERED: Mylanta II UD 30ml ORAL ONE (16:00)
--- NOTE | 2017-10-03 16:12 | Emergency Room Report ---
History of Present Illness General Chief Complaint: Nausea, Vomiting, and Diarrhea Source: Patient, Medical Record Present Illness HPI 47 y/o female c/o multiple complaints. Patient states for the past few days she has been having left arm pain. States pain is from left shoulder to left hand with numbness in the 1st and 2nd digit of the left hand. States sxs are worse with ROM of the left hand and TTP. States that she has been taking 400mg and between 440 to 660mg of naproxen together for her sxs without relief yesterday and afterwards stated she felt flushed. States that she started having epigastric pain and then tried to eat a cracker and has several bouts of vomiting subsequently as a result. States she is unable to hold down PO intake. Denies any chest pain, SOB, NOBLES, neck pain, trauma, blurred vision, RANDOLPH, diarrhea , melena, constipation, or rashes. 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 Hx Hypertension: Yes Hx Gastrointestinal Problems: Yes - GERD, BLADDER INFECTION Hx Neurological Problems: Yes - Cardenas's Palsy Review of Systems All Other Systems: negative except mentioned in HPI Physical Exam Vital Signs Date Time Temp Pulse Resp B/P (MAP) Pulse Ox O2 Delivery O2 Flow Rate FiO2 10/03/17 15:31 98.2 80 18 132/83 100 Room Air Sp02 EP Interpretation: reviewed, normal General Appearance: no apparent distress, alert, GCS 15, non-toxic Head: normocephalic, atraumatic Eyes: bilateral eye normal inspection, bilateral eye PERRL ENT: hearing grossly normal, normal pharynx, no angioedema, normal voice Neck: full range of motion, no bony tend, supple/symm/no masses Respiratory: chest non-tender, lungs clear, normal breath sounds, speaking full sentences Cardiovascular #1: normal peripheral pulses, regular rate, rhythm, no edema, normal capillary refill Gastrointestinal: normal bowel sounds, soft, non-distended, no guarding, no rebound, tenderness - epigastric Musculoskeletal: back normal, gait/station normal, normal range of motion, other - +Phalens, Neg Tinels. +Left Wrist swelling, tender - left shoulder and left wrist. Neurologic: alert, oriented x3, responsive, motor strength/tone normal, sensory intact, speech normal Psychiatric: judgement/insight normal, memory normal, mood/affect normal, no suicidal/homicidal ideation Skin: normal color, no rash, warm/dry, well hydrated Medical Decision Making PA Attestation Dr. Carmona is my supervising physician with whom patient management has been discussed with. Diagnostic Impression: Primary Impression: Carpal tunnel syndrome of left wrist Additional Impressions: Radiculopathy of arm Mesenteric adenitis UTI (urinary tract infection) Qualified Codes: N30.00 - Acute cystitis without hematuria ER Course Pt. presents to the ED c/o abdominal pain. Ddx considered but are not limited to viral syndrome, , appendicitis, diverticulitis, constipation, gastroenteritis, abdominal hernia, pancreatitis, cholecystitis, nephrolithiasis, and ovarian torsion. Vital signs: are WNL, pt. is afebrile H&PE are most consistent with mesenteric adenitis with carpal tunnel of left wrist (Phalen's positive), with radiculopathy of the left arm. UA shows UTI. ORDERS / ED INTERVENTIONS: My Orders - OMER FROST Procedure Category Date Status Time Vital Signs CARE 10/03/17 Transmitted 15:52 Ekg Tracing Only CARD 10/03/17 Logged 15:52 Iv Access / Saline CARE 10/03/17 Transmitted Lock 15:52 Cbc W/ Differential LAB 10/03/17 Complete 15:52 CMP LAB 10/03/17 Complete 15:52 Lipase LAB 10/03/17 Complete 15:52 Urinalysis Reflex LAB 10/03/17 Complete Microscopy 15:52 Troponin I LAB 10/03/17 Complete 15:52 Ondansetron Odt PHA 10/03/17 Complete (Zofran Odt) 16:00 Lidocaine 2% Visc PHA 10/03/17 Complete (Xylocaine Viscous) 16:00 Dicyclomine Hcl PHA 10/03/17 Complete (Bentyl) 16:00 Al Hydroxide/Mg PHA 10/03/17 Complete Hydroxide (Mylanta Ii) 16:00 Ns 1000ml (Sodium PHA 10/03/17 Complete Chloride 1000ml Bag) 15:52 Saline 10ml Flush PHA 10/03/17 In Process (Saline 10ml Flush) 16:[address] 10/03/17 Taken W/Contrast 17:01 Hydrocodone/Acetamin PHA 10/03/17 Complete 10/325 ([place] 17:15 Screen Serum LAB 10/03/17 Logged 17:16 Ketorolac PHA 10/03/17 Complete Tromethamine (Toradol 20:00 Ondansetron (Zofran) PHA 10/03/17 Complete 20:00 Ns 1000ml (Sodium PHA 10/03/17 Complete Chloride 1000ml Bag) 20:00 Apply Splint / Brace CARE 10/03/17 Transmitted 21:04 DISCHARGE: At this time pt. is stable for d/c to home. Will provide printed patient care instructions, and any necessary prescriptions. Care plan and follow up instructions have been discussed with the patient prior to discharge. Laboratory Tests Test 10/03/17 16:15 White Blood Count 5.3 K/UL (4.8-10.8) Red Blood Count 3.96 M/UL (4.20-5.40) L Hemoglobin 10.4 G/DL (12.0-16.0) L Hematocrit 33.1 % (37.0-47.0) L Mean Corpuscular Volume 84 FL (80-99) Mean Corpuscular Hemoglobin 26.2 PG (27.0-31.0) L Mean Corpuscular Hemoglobin Concent 31.4 G/DL (32.0-36.0) L Red Cell Distribution Width 13.9 % (11.6-14.8) Platelet Count 330 K/UL (150-450) Mean Platelet Volume 7.0 FL (6.5-10.1) Neutrophils (%) (Auto) 63.1 % (45.0-75.0) Lymphocytes (%) (Auto) 23.6 % (20.0-45.0) Monocytes (%) (Auto) 10.5 % (1.0-10.0) H Eosinophils (%) (Auto) 1.6 % (0.0-3.0) Basophils (%) (Auto) 1.1 % (0.0-2.0) Urine Color Yellow Urine Appearance Slightly cloudy Urine pH 6 (4.5-8.0) Urine Specific [place] 1.010 (1.005-1.035) Urine Protein Negative (NEGATIVE) Urine Glucose (UA) Negative (NEGATIVE) Urine Ketones Negative (NEGATIVE) Urine Occult Blood Negative (NEGATIVE) Urine Nitrite Negative (NEGATIVE) Urine Bilirubin Negative (NEGATIVE) Urine Urobilinogen 1 MG/DL (0.0-1.0) H Urine Leukocyte Esterase Negative (NEGATIVE) Urine RBC 0-2 /HPF (0 - 2) Urine WBC 0-2 /HPF (0 - 2) Urine Squamous Epithelial Cells Many /LPF (NONE/OCC) H Urine Bacteria Occasional /HPF (NONE) Urine HCG, Qualitative Negative Sodium Level 137 MMOL/L (136-145) Potassium Level 3.6 MMOL/L (3.5-5.1) Chloride Level 100 MMOL/L (98-107) Carbon Dioxide Level 30 MMOL/L (21-32) Anion Gap 7 mmol/L (5-15) Blood Urea Nitrogen 9 mg/dL (7-18) Creatinine 0.8 MG/DL (0.55-1.30) Estimate Glomerular Filtration Rate > 60 mL/min (>60) Glucose Level 86 MG/DL (74-106) Calcium Level 7.9 MG/DL (8.5-10.1) L Total Bilirubin 0.2 MG/DL (0.2-1.0) Aspartate Amino Transferase (AST) 22 U/L (15-37) Alanine Aminotransferase (ALT) 25 U/L (12-78) Alkaline Phosphatase 73 U/L (46-116) Troponin I 0.000 ng/mL (0.000-0.056) Total Protein 7.3 G/DL (6.4-8.2) Albumin 3.3 G/DL (3.4-5.0) L Globulin 4.0 g/dL Albumin/Globulin Ratio 0.8 (1.0-2.7) L Lipase 244 U/L (73-393) EKG Diagnostic Results Rate: normal Rhythm: NSR ST Segments: no acute changes CT/MRI/US Diagnostic Results CT/MRI/US Diagnostic Results : Imaging Test Ordered: CT Abd Pelvis with PO and IV contrast Impression Evidence of hepatic fatty infiltration. Gallbladder, pancreas and spleen are unremarkable. Bilateral symmetric renal enhancement. No hydronephrosis or obstructing renal calculi. Small fat containing hernia. Moderate colonic fecal debris throughout the colon which may reflect constipation. No evidence of bowel obstruction or pneumoperitoneum. Partially imaged appendix in right lower quadrant appears unremarkable and no secondary findings of appendicitis identified. Multiple small mesenteric lymph nodes predominantly in the right lower quadrant which may be reactive or could reflect mesenteric adenitis. Heterogeneous myometrial density with multifocal myometrial abnormalities most suggestive of multiple uterine fibroids. Small bilateral ovarian cysts measuring up to 1.5 cm on the right and 1.8 cm on the left which are likely physiologic. Multiple small bilateral inguinal lymph nodes with mildly enlarged left inguinal lymph node measuring 1.3 x 1.7 cm. Last Vital Signs Date Time Temp Pulse Resp B/P (MAP) Pulse Ox O2 Delivery O2 Flow Rate FiO2 10/03/17 15:31 98.2 80 18 132/83 100 Room Air Status: improved Disposition: HOME, SELF-CARE Condition: Stable Scripts Hydrocodone Bit/Acetaminophen 5-325* (NORCO 5-325 TABLET*) 1 Each Tablet 1 TAB ORAL QHS Y for For Pain, #12 TAB Prov: SABRY,TAMEEM P.A. 10/03/17 Ondansetron Odt* (ZOFRAN ODT*) 8 Mg Tab.rapdis 8 MG ORAL Q8HR Y for Nausea & Vomiting, #20 TAB Prov: SABRY,TAMEEM P.A. 10/03/17 Omeprazole Magnesium (PRILOSEC OTC) 20 Mg Tablet.dr 20 MG ORAL DAILY for 14 Days, #14 TAB Prov: SABRY,TAMEEM P.A. 10/03/17 Naproxen* (NAPROXEN*) 500 Mg Tablet.dr 500 MG ORAL TWICE A DAY for 10 Days, #20 TAB Prov: SABRY,TAMEEM P.A. 10/03/17 Ciprofloxacin Hcl* (CIPROFLOXACIN HCL*) 500 Mg Tablet 500 MG ORAL EVERY 12 HOURS, #20 TAB 0 Refills Prov: SABRY,TAMEEM P.A. 10/03/17 Patient Instructions: Carpal Tunnel Syndrome, Mesenteric Adenitis, Pediatric, Radicular Pain Additional Instructions: Take medication as directed. Patient instructed to stay well hydrated and to use a liquid diet and then progress to soft bland diet as tolerated before reverting back to a regular diet. Patient to return for recheck in 4-10 hours if symptoms worsen or persist. Patient advised to f/u with PCP regarding today' s finding and for recheck of symptoms. Patient advised if irreretractible pain , rectal bleeding, or no BM to go to ER immediately. OMER FROST Oct 03, 2017 16:11
[2017-10-03 16:56] LABS: APPEARANCE,URINE SLIGHTLY CLOUDY; BILIRUBIN, URINE NEGATIVE (NEGATIVE); GLUCOSE, URINE (UA) NEGATIVE (NEGATIVE); KETONES,URINE NEGATIVE (NEGATIVE); LEUKOCYTE ESTERASE ,URINE NEGATIVE (NEGATIVE); NITRITE,URINE NEGATIVE (NEGATIVE); PH,URINE 6 (4.5-8.0); PROTEIN,URINE NEGATIVE (NEGATIVE); UROBILINOGEN,URINE 1 MG/DL (0.0-1.0)
[2017-10-03 16:58] LABS: ANION GAP 7 mmol/L (5-15); BLOOD UREA NITROGEN 9 mg/dL (7-18); CALCIUM 7.9 MG/DL (8.5-10.1); CARBON DIOXIDE 30 MMOL/L (21-32); CHLORIDE 100 MMOL/L (98-107); CREATININE 0.8 MG/DL (0.55-1.30); POTASSIUM 3.6 MMOL/L (3.5-5.1); SODIUM 137 MMOL/L (136-145)
[2017-10-03 16:59] LABS: COLOR,URINE YELLOW
[2017-10-03 17:00] LABS: ALANINE AMINOTRANSFERASE 25 U/L (12-78); ALBUMIN 3.3 G/DL (3.4-5.0); ALBUMIN/GLOBULIN RATIO 0.8 (1.0-2.7); ALKALINE PHOSPHATASE 73 U/L (46-116); ASPARTATE AMINO TRANSFERASE 22 U/L (15-37); BILIRUBIN,TOTAL 0.2 MG/DL (0.2-1.0)
[2017-10-03 17:07] LABS: BASOPHILS % (AUTO) 1.1 % (0.0-2.0); EOSINOPHILS % (AUTO) 1.6 % (0.0-3.0); HEMATOCRIT 33.1 % (37.0-47.0); HEMOGLOBIN 10.4 G/DL (12.0-16.0); LYMPHOCYTES % (AUTO) 23.6 % (20.0-45.0); MEAN CORPUSCULAR VOLUME 84 FL (80-99); MONOCYTES % (AUTO) 10.5 % (1.0-10.0); NEUTROPHILS % (AUTO) 63.1 % (45.0-75.0); PLATELET COUNT 330 K/UL (150-450); RED BLOOD COUNT 3.96 M/UL (4.20-5.40); RED CELL DISTRIBUTION WIDTH 13.9 % (11.6-14.8); WHITE BLOOD COUNT 5.3 K/UL (4.8-10.8)
[2017-10-03] MEDS ORDERED: HYDROcodone/Acetamin 10/325 tab ORAL ONE (17:15)
[2017-10-03 17:20] VITALS: BP 127/84
[2017-10-03 19:39] VITALS: BP 118/78
[2017-10-03] MEDS ORDERED: Ketorolac 30mg Inj IV ONE (20:00)
[2017-10-03 21:00] VITALS: BP 106/60
[2017-10-03] MEDS ORDERED: NAPROXEN500 M1 ORAL (21:15)
[2017-10-03] MEDS ORDERED: ZOFRAN ODT8 MG ORAL (21:15)
[2017-10-03] MEDS ORDERED: NORCO 5-325 TA1 EAC1 ORAL (21:15)
[2017-10-03] MEDS ORDERED: CIPROFLOXACIN500 M2 ORAL (21:15)
[2017-10-03] MEDS ORDERED: PRILOSEC OTC20 MG ORAL (21:15)
[2017-10-03 21:28] VITALS: BP 106/60
--- NOTE | 2017-10-04 08:51 | Diagnostic Imaging Report ---
Indication: Abnormal pain Technique: CT scan of the abdomen and pelvis was performed from the diaphragms to the symphysis pubis with intravenous contrast material and oral contrast material. Biphasic liver scanning was employed. 5 mm sections were generated. Axial, coronal, and sagittal images are presented. Dose: Total Dose Length Product - DLP [address] Dose Index - CTDIvol(s) 14.79 mGy. Automated exposure control was utilized for dose reduction. Comparison: None Findings: Liver is normal. The gallbladder is unremarkable. The spleen is normal. The pancreas is unremarkable. Adrenal glands are normal. The kidneys are unremarkable. Aorta and inferior vena cava are normal caliber. Retroperitoneum is free of adenopathy. There is an umbilical hernia containing fat. The bowel appears normal. Appendix is not identified but there is no inflammatory change to suggest appendicitis. There is a solid mass in the uterus measuring approximately 4.3 cm consistent with a fibroid. A low density mass is present in the left ovary measuring 15 mm. Some inguinal lymph nodes are noted bilaterally. The remainder the pelvis is unremarkable.. Impression: Small left ovarian cyst, likely physiologic. Uterine fibroid. Small fat-containing umbilical hernia. Small bilateral inguinal lymph nodes. Otherwise negative. The above report is concordant with preliminary reading by [employer] with minor difference. The CT scanner at [facility] is accredited by the [employer] and the scans are performed using protocols designed to limit radiation exposure to as low as reasonably achievable to attain images of sufficient resolution adequate for diagnostic evaluation.
--- NOTE | 2017-10-14 17:34 | Cardiology Report ---
APPROVED REPORT EKG Measurement Heart [id number] Normal sinus rhythm Normal ECG
== END 2017-10-03 21:28 | disposition home or self-care (01) ==
LOC: EMR 15:35
DX: G56.02 Carpal tunnel syndrome, left upper limb (principal); I88.0 Nonspecific mesenteric lymphadenitis; N39.0 Urinary tract infection, site not specified; Z88.2 Allergy status to sulfonamides; Z88.8 Allergy status to other drugs, medicaments and biological substances; Z88.1 Allergy status to other antibiotic agents
CPT/HCPCS: 36415; 74177; 80053; 81003; 81025; 83690; 84484; 85025; 93005; 96361; 96374; 96375; 99284; J1885; J2405; Q9967

== ENCOUNTER 2017-11-26 20:54 | Emergency (ER) | payer MEDICAID ==
[~2017-11-26] VITALS: Ht 160 cm; Wt 72.6 kg
[~2017-11-26 20:54] MED LIST changes: +NAPROXEN500 M1 ORAL; +NORCO 5-325 TA1 EAC1 ORAL; +PRILOSEC OTC20 MG ORAL; +ZOFRAN ODT8 MG ORAL
[2017-11-26 21:10] VITALS: BP 133/88
--- NOTE | 2017-11-26 21:38 | Emergency Room Report ---
History of Present Illness General Chief Complaint: Abdominal Pain Source: Patient Present Illness HPI Patient is a 47-year-old female who presented after increased dysuria as well as urinary frequency. She reports having increased vaginal discharge with white thick discharge. She denied any recent antibiotic use. She had been having some nonproductive cough. The patient denies any vomiting.Patient denies any chest pain or shortness of breath. Allergies: Coded Allergies: NITROFURANTOIN (Verified Allergy, Severe, Anaphylaxis, 07/08/16) CEPHALEXIN (Unverified Allergy, Mild, 04/15/16) METRONIDAZOLE (Unverified Allergy, Mild, 04/15/16) SULFAMETHOXAZOLE (Verified Allergy, Unknown, 01/28/17) TRIMETHOPRIM (Verified Allergy, Unknown, 01/28/17) Patient History Past Medical History: see triage record Last Menstrual Period: 11/22/17 Now: No : 1 Para: 1 Reviewed Nursing Documentation: PMH: Agreed, PSxH: Agreed Nursing Documentation-PMH Hx Hypertension: Yes Hx Gastrointestinal Problems: Yes - GERD Hx Neurological Problems: Yes - Cardenas's Palsy Review of Systems All Other Systems: negative except mentioned in HPI Physical Exam Vital Signs Date Time Temp Pulse Resp B/P (MAP) Pulse Ox O2 Delivery O2 Flow Rate FiO2 11/26/17 21:02 98.2 91 14 133/88 98 98.2 General Appearance: well appearing, no apparent distress, alert, GCS 15 Head: normocephalic, atraumatic ENT: hearing grossly normal, normal voice Neck: full range of motion, supple Respiratory: no respiratory distress, speaking full sentences Musculoskeletal: no calf tenderness Neurologic: normal gait Psychiatric: mood/affect normal Skin: no rash Medical Decision Making Diagnostic Impression: Primary Impression: Vaginitis Additional Impression: Yeast infection ER Course The patient presented for vaginal discharge. Differential diagnosis included was not limited to a yeast infection, physiologic discharge, bacterial vaginosis , gonorrhea, Chlamydia, among others.The patient symptomatically has a yeast infection. She was treated empirically with Diflucan. The patient is given prescription for further treatment. She was additionally given prescription for cough syrup for a upper respiratory infection.The patient is advised to follow up with primary care doctor in 1-2 days. Patient is advised to return if any worsening condition or if any changes in status that are concerning. This report is dictated with [employer] supervisor display fabrication software which may occasionally lead to discrepancies related to use of this software. Labs Test 11/26/17 22:00 Urine Color Pale yellow Urine Appearance Clear Urine pH 6 (4.5-8.0) Urine Specific [place] 1.015 (1.005-1.035) Urine Protein Negative (NEGATIVE) Urine Glucose (UA) Negative (NEGATIVE) Urine Ketones Negative (NEGATIVE) Urine Occult Blood 1+ (NEGATIVE) Urine Nitrite Negative (NEGATIVE) Urine Bilirubin Negative (NEGATIVE) Urine Urobilinogen Normal MG/DL (0.0-1.0) Urine Leukocyte Esterase 1+ (NEGATIVE) Urine RBC 0-2 /HPF (0 - 2) Urine WBC 0-2 /HPF (0 - 2) Urine Squamous Epithelial Cells Many /LPF (NONE/OCC) Urine Bacteria Few /HPF (NONE) Urine HCG, Qualitative Negative (NEGATIVE) Last Vital Signs Date Time Temp Pulse Resp B/P (MAP) Pulse Ox O2 Delivery O2 Flow Rate FiO2 11/26/17 21:02 98.2 91 14 133/88 98 98.2 Status: improved Disposition: HOME, SELF-CARE Condition: Stable Scripts Guaifenesin* (ADULT WAL-TUSSIN*) 100 Mg/5 Ml Liquid 10 ML ORAL Q4H, #120 ML Prov: Joseluis Carmona 11/26/17 Fluconazole (FLUCONAZOLE) 100 Mg Tablet 100 MG ORAL DAILY, #1 TAB 0 Refills Prov: Joseluis Carmona 11/26/17 Joseluis Carmona Nov 26, 2017 21:37
[2017-11-26] MEDS: Fluconazole 100mg tab ORAL ONE (22:01)
[2017-11-26 22:20] LABS: APPEARANCE,URINE CLEAR; BILIRUBIN, URINE NEGATIVE (NEGATIVE); COLOR,URINE PALE YELLOW; GLUCOSE, URINE (UA) NEGATIVE (NEGATIVE); KETONES,URINE NEGATIVE (NEGATIVE); LEUKOCYTE ESTERASE ,URINE 1+ (NEGATIVE); NITRITE,URINE NEGATIVE (NEGATIVE); PH,URINE 6 (4.5-8.0); PROTEIN,URINE NEGATIVE (NEGATIVE); UROBILINOGEN,URINE NORMAL MG/DL (0.0-1.0)
[2017-11-26] MEDS ORDERED: FLUCONAZOLE100 MG ORAL (22:44)
[2017-11-26] MEDS ORDERED: ADULT WAL-100 MG/5 M ORAL (22:45)
[2017-11-26 23:05] VITALS: BP 133/88
== END 2017-11-26 23:05 | disposition home or self-care (01) ==
LOC: EMR 21:30
DX: B37.3 Candidiasis of vulva and vagina (principal); I10 Essential (primary) hypertension; K21.9 Gastro-esophageal reflux disease without esophagitis; Z88.8 Allergy status to other drugs, medicaments and biological substances; Z88.2 Allergy status to sulfonamides; Z88.1 Allergy status to other antibiotic agents
CPT/HCPCS: 81003; 81025; 99284

== ENCOUNTER 2018-02-21 05:30 | Emergency (ER) | payer MEDICAID ==
[~2018-02-21] VITALS: Ht 160 cm; Wt 72.6 kg
[~2018-02-21 05:30] MED LIST changes: +ADULT WAL-100 MG/5 M ORAL
[2018-02-21 05:50] VITALS: BP 128/75
[2018-02-21] MEDS ORDERED: DOXYCYCLINE MO100 MG ORAL (05:55)
[2018-02-21] MEDS ORDERED: METROGEL-VAGINA70 G1 VAGIN (05:55)
[2018-02-21] MEDS ORDERED: PHENAZOPYRIDIN200 MG ORAL (05:55)
[2018-02-21] MEDS ORDERED: Phenazopyridine 200mg tab ORAL ONE (06:00)
[2018-02-21] MEDS ORDERED: Acetaminophen 500mg (ES) tab ORAL ONE (06:00)
--- NOTE | 2018-02-21 06:01 | Emergency Room Report ---
History of Present Illness General Chief Complaint: Abdominal Pain Source: Patient Present Illness HPI Patient is a 47-year-old female who presented after increased lower abdominal pain. Patient reports having increased dysuria associated with increased urinary frequency. Patient prior history of urinary tract infections as well as prior history Trichomonas. Patient reports having run out of her blood pressure medications. Patient states that she had been noted to have increased vaginal discharge. Patient is allergic to multiple antibiotics. Patient denies any vomiting or diarrhea. 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: Yes Review of Systems All Other Systems: negative except mentioned in HPI Physical Exam Vital Signs Date Time Temp Pulse Resp B/P (MAP) Pulse Ox O2 Delivery O2 Flow Rate FiO2 02/21/18 05:35 97.9 80 18 123/75 98 Room Air 97.9 Sp02 EP Interpretation: reviewed, normal General Appearance: normal inspection, well appearing, no apparent distress, alert, GCS 15 Head: atraumatic ENT: normal ENT inspection, hearing grossly normal, normal voice Neck: normal inspection, full range of motion, supple, no bony tend Respiratory: normal inspection, lungs clear, normal breath sounds, no respiratory distress, no retraction, no wheezing Cardiovascular #1: regular rate, rhythm, no edema Gastrointestinal: normal inspection, normal bowel sounds, non tender, soft, no guarding, no hernia Genitourinary: no CVA tenderness Musculoskeletal: normal inspection, back normal, normal range of motion Neurologic: normal inspection, alert, oriented x3, responsive, hearing aid assembly supervisor III-XII nml as tested, speech normal Psychiatric: normal inspection, judgement/insight normal, mood/affect normal Skin: normal inspection, normal color, no rash Medical Decision Making Diagnostic Impression: Primary Impression: Urinary tract infection ER Course Patient presented for abdominal pain. Differential diagnoses included ischemic bowel, appendicitis, perforated viscus, abdominal aortic aneurysm, inferior myocardial infarction, viral gastroenteritis . Patient has a benign exam and does not appear to require any further imaging or laboratory testing at this time. The patient's blood pressure medications refilled. Patient was advised not to take this if she felt dizzy lightheaded or her blood pressure was low. Patient was advised to have urine rechecked with primary care physician in one to days.The patient is advised to follow up with primary care doctor in 1-2 days. Patient is advised to return if any worsening condition or if any changes in status that are concerning. This report is dictated with [employer] presser first software which may occasionally lead to discrepancies related to use of this software. Labs Test 02/21/18 05:45 Urine Color Pale yellow Urine Appearance Slightly cloudy Urine pH 6 (4.5-8.0) Urine Specific [place] 1.015 (1.005-1.035) Urine Protein 1+ (NEGATIVE) Urine Glucose (UA) Negative (NEGATIVE) Urine Ketones Negative (NEGATIVE) Urine Occult Blood Negative (NEGATIVE) Urine Nitrite Negative (NEGATIVE) Urine Bilirubin Negative (NEGATIVE) Urine Urobilinogen Normal MG/DL (0.0-1.0) Urine Leukocyte Esterase 2+ (NEGATIVE) Urine RBC 0-2 /HPF (0 - 2) Urine WBC 5-10 /HPF (0 - 2) Urine Squamous Epithelial Cells Many /LPF (NONE/OCC) Urine Bacteria Moderate /HPF (NONE) Urine Mucus Few /LPF (NONE/OCC) Urine HCG, Qualitative Negative (NEGATIVE) Last Vital Signs Date Time Temp Pulse Resp B/P (MAP) Pulse Ox O2 Delivery O2 Flow Rate FiO2 02/21/18 05:35 97.9 80 18 123/75 98 Room Air 97.9 Status: improved Disposition: HOME, SELF-CARE Condition: Stable Scripts Triamterene/Hydrochlorothiazid (TRIAMTERENE-HCTZ 37.5-25 MG CP) 1 Each Capsule 1 CAP ORAL DAILY for Hypertension, #30 CAP Prov: Joseluis Carmona MD 02/21/18 Metronidazole* (METROGEL-VAGINAL*) 70 Gm Gel.w.appl 1 APPL VAGIN BEDTIME, #70 GM Prov: Joseluis Carmona MD 02/21/18 Phenazopyridine Hcl* (PYRIDIUM*) 200 Mg Tablet 200 MG ORAL THREE TIMES A DAY, #14 TAB 0 Refills Prov: Joseluis Carmona MD 02/21/18 Doxycycline Monohydrate* (DOXYCYCLINE MONOHYDRATE*) 100 Mg Capsule 100 MG ORAL Q12H for 7 Days, #14 CAP 0 Refills Prov: Joseluis Carmona MD 02/21/18 Referrals: NON PHYSICIAN (PCP) Patient Instructions: Abdominal Pain, Adult Joseluis Carmona MD Feb 21, 2018 06:01
[2018-02-21 06:08] LABS: APPEARANCE,URINE SLIGHTLY CLOUDY; BILIRUBIN, URINE NEGATIVE (NEGATIVE); COLOR,URINE PALE YELLOW; GLUCOSE, URINE (UA) NEGATIVE (NEGATIVE); KETONES,URINE NEGATIVE (NEGATIVE); LEUKOCYTE ESTERASE ,URINE 2+ (NEGATIVE); NITRITE,URINE NEGATIVE (NEGATIVE); PH,URINE 6 (4.5-8.0); PROTEIN,URINE 1+ (NEGATIVE); UROBILINOGEN,URINE NORMAL MG/DL (0.0-1.0)
[2018-02-21] MEDS ORDERED: TRIAMTERENE-HC1 EAC7 ORAL (06:30)
[2018-02-21 06:33] VITALS: BP 128/75
== END 2018-02-21 06:34 | disposition home or self-care (01) ==
LOC: EMR 05:50
DX: N39.0 Urinary tract infection, site not specified (principal); K21.9 Gastro-esophageal reflux disease without esophagitis; I10 Essential (primary) hypertension; G51.0 Bell's palsy; Z86.73 Personal history of transient ischemic attack (TIA), and cerebral infarction without residual deficits; Z88.8 Allergy status to other drugs, medicaments and biological substances; Z88.1 Allergy status to other antibiotic agents; Z88.2 Allergy status to sulfonamides
CPT/HCPCS: 81003; 81025; 87086; 99284

== ENCOUNTER 2018-03-26 11:39 | Emergency (ER) | payer MEDICAID ==
[~2018-03-26] VITALS: Ht 160 cm; Wt 74.8 kg
[2018-03-26 11:54] VITALS: BP 111/56
[2018-03-26] MEDS ORDERED: Ketorolac 30mg Inj IV ONE (12:15)
[2018-03-26 12:47] LABS: BASOPHILS % (AUTO) 0.9 % (0.0-2.0); EOSINOPHILS % (AUTO) 3.1 % (0.0-3.0); HEMATOCRIT 31.5 % (37.0-47.0); HEMOGLOBIN 9.9 G/DL (12.0-16.0); LYMPHOCYTES % (AUTO) 24.8 % (20.0-45.0); MEAN CORPUSCULAR VOLUME 81 FL (80-99); MONOCYTES % (AUTO) 8.5 % (1.0-10.0); NEUTROPHILS % (AUTO) 62.7 % (45.0-75.0); PLATELET COUNT 373 K/UL (150-450); RED BLOOD COUNT 3.89 M/UL (4.20-5.40); RED CELL DISTRIBUTION WIDTH 14.1 % (11.6-14.8); WHITE BLOOD COUNT 7.5 K/UL (4.8-10.8)
[2018-03-26 12:56] LABS: APPEARANCE,URINE SLIGHTLY CLOUDY; BILIRUBIN, URINE NEGATIVE (NEGATIVE); COLOR,URINE PALE YELLOW; GLUCOSE, URINE (UA) NEGATIVE (NEGATIVE); KETONES,URINE NEGATIVE (NEGATIVE); LEUKOCYTE ESTERASE ,URINE 2+ (NEGATIVE); NITRITE,URINE NEGATIVE (NEGATIVE); PH,URINE 8 (4.5-8.0); PROTEIN,URINE NEGATIVE (NEGATIVE); UROBILINOGEN,URINE NORMAL MG/DL (0.0-1.0)
[2018-03-26 13:10] LABS: ALANINE AMINOTRANSFERASE 26 U/L (12-78); ALBUMIN 3.4 G/DL (3.4-5.0); ALBUMIN/GLOBULIN RATIO 0.8 (1.0-2.7); ALKALINE PHOSPHATASE 72 U/L (46-116); ANION GAP 6 mmol/L (5-15); ASPARTATE AMINO TRANSFERASE 16 U/L (15-37); BILIRUBIN,TOTAL 0.1 MG/DL (0.2-1.0); BLOOD UREA NITROGEN 11 mg/dL (7-18); CALCIUM 8.4 MG/DL (8.5-10.1); CARBON DIOXIDE 32 MMOL/L (21-32); CHLORIDE 100 MMOL/L (98-107); CREATINE KINASE 216 U/L (26-308); POTASSIUM 3.2 MMOL/L (3.5-5.1); SODIUM 138 MMOL/L (136-145)
--- NOTE | 2018-03-26 13:23 | Diagnostic Imaging Report ---
Indication: Chest pain Technique: XRAY Chest 1v Comparison: 09/29/2017 Findings: Heart size and mediastinal contours are stable. There is no focal consolidation, pneumothorax or pleural effusion. Osseous structures demonstrate no acute abnormality. Impression: No radiographic evidence of acute cardiopulmonary disease.
--- NOTE | 2018-03-26 14:32 | Emergency Room Report ---
History of Present Illness General Chief Complaint: Pain Source: Patient, Medical Record Present Illness HPI Patent presents with L sided chest pain. Radiates either to or from lateral side. Has been worse several days. Tried naprosyn which helped slightly. Keeps her awake at night. Increased anxiety and stress as very little sleep due to jobs and caring for young children. Rare nausea. Not exertional. No calf swelling, edema. No rashes. Denies acid reflux associated with chest pain. No melena, hematemesis, vomit. Symptoms suggestive of perimenopause She's also having episodes at night where she feels hot and has to get up. She' ll take off her close at that time and cool down outside. She feels anxious at that time also and feels flushed. No NOBLES, diarrhea, dysuria, joint pain. No HTN, DM, known hyperlipidemia, FHx. She is worried of DM. Feels dehydrated. Visits for asthma, vaginosis and UTI in past. Multiple Abx allergies. Seen in September of this year with similar L chest pain. Also prior with L shoulder muscle strain. 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 Allergies: Coded Allergies: NITROFURANTOIN (Verified Allergy, Severe, Anaphylaxis, 07/08/16) CEPHALEXIN (Unverified Allergy, Mild, 04/15/16) METRONIDAZOLE (Unverified Allergy, Mild, 04/15/16) SULFAMETHOXAZOLE (Verified Allergy, Unknown, 01/28/17) TRIMETHOPRIM (Verified Allergy, Unknown, 01/28/17) Patient History Past Medical History: see triage record Social History: Denies: smoking Social History Narrative with 2 children in ED Reviewed Nursing Documentation: PMH: Agreed; PSxH: Agreed Nursing Documentation-PMH Past Medical History: No History, Except For Hx Hypertension: Yes Hx Gastrointestinal Problems: Yes - GERD Hx Neurological Problems: Yes - Cardenas's Palsy Hx Cerebrovascular Accident: Yes Review of Systems All Other Systems: negative except mentioned in HPI Physical Exam Vital Signs Date Time Temp Pulse Resp B/P (MAP) Pulse Ox O2 Delivery O2 Flow Rate FiO2 03/26/18 11:49 98.3 85 18 131/83 97 Room Air 98.2 Sp02 EP Interpretation: reviewed, normal General Appearance: well appearing, no apparent distress, GCS 15 Head: normocephalic Eyes: bilateral eye normal inspection, bilateral eye PERRL ENT: moist mucus membranes, other - Facial asymmetry from Cardenas's Neck: supple Respiratory: lungs clear, normal breath sounds, other - + some CWT Cardiovascular #1: regular rate, rhythm Cardiovascular #2: 2+ radial (R) Gastrointestinal: normal inspection, normal bowel sounds, non tender, no mass, non-distended Musculoskeletal: back normal, gait/station normal, normal range of motion Neurologic: alert, oriented x3, potline monitor III-XII nml as tested - slight L facial assymmetry, motor strength/tone normal, DTRs symmetric, sensory intact, cerebellar normal, normal gait, speech normal Psychiatric: anxious Skin: normal inspection, warm/dry Medical Decision Making Diagnostic Impression: Primary Impression: Costochondritis Additional Impression: Hypokalemia ER Course Patient presents with L chest pain. DDx costochondritis, pneumonia, , muscle strain, PE, ACS amongst others. Evaluation with EKG, CXR. As at risk for DM will also check results. Based on Hx, and exam, doubt PE. Will be given Toradol. 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 EKG without injury. CXR no abnormalities. CBC normal. CMP with low potassium Given K here. Of note, K in September was 2.9. Improved with treatment. Discussed findings and need for follow up. Also discussed contribution of stress. Finally, perimenopausal symptoms seem present - these were also discussed. Patient stable for outpatient observation and treatment. Laboratory Tests Test 03/26/18 12:28 White Blood Count 7.5 K/UL (4.8-10.8) Red Blood Count 3.89 M/UL (4.20-5.40) L Hemoglobin 9.9 G/DL (12.0-16.0) L Hematocrit 31.5 % (37.0-47.0) L Mean Corpuscular Volume 81 FL (80-99) Mean Corpuscular Hemoglobin 25.5 PG (27.0-31.0) L Mean Corpuscular Hemoglobin Concent 31.5 G/DL (32.0-36.0) L Red Cell Distribution Width 14.1 % (11.6-14.8) Platelet Count 373 K/UL (150-450) Mean Platelet Volume 6.3 FL (6.5-10.1) L Neutrophils (%) (Auto) 62.7 % (45.0-75.0) Lymphocytes (%) (Auto) 24.8 % (20.0-45.0) Monocytes (%) (Auto) 8.5 % (1.0-10.0) Eosinophils (%) (Auto) 3.1 % (0.0-3.0) H Basophils (%) (Auto) 0.9 % (0.0-2.0) Urine Color Pale yellow Urine Appearance Slightly cloudy Urine pH 8 (4.5-8.0) Urine Specific [place] 1.010 (1.005-1.035) Urine Protein Negative (NEGATIVE) Urine Glucose (UA) Negative (NEGATIVE) Urine Ketones Negative (NEGATIVE) Urine Occult Blood Negative (NEGATIVE) Urine Nitrite Negative (NEGATIVE) Urine Bilirubin Negative (NEGATIVE) Urine Urobilinogen Normal MG/DL (0.0-1.0) Urine Leukocyte Esterase 2+ (NEGATIVE) H Urine RBC 0-2 /HPF (0 - 2) Urine WBC 2-4 /HPF (0 - 2) Urine Squamous Epithelial Cells Many /LPF (NONE/OCC) H Urine Bacteria Moderate /HPF (NONE) H Sodium Level 138 MMOL/L (136-145) Potassium Level 3.2 MMOL/L (3.5-5.1) L Chloride Level 100 MMOL/L (98-107) Carbon Dioxide Level 32 MMOL/L (21-32) Anion Gap 6 mmol/L (5-15) Blood Urea Nitrogen 11 mg/dL (7-18) Creatinine 1.0 MG/DL (0.55-1.30) Estimate Glomerular Filtration Rate > 60 mL/min (>60) Glucose Level 89 MG/DL (74-106) Calcium Level 8.4 MG/DL (8.5-10.1) L Total Bilirubin 0.1 MG/DL (0.2-1.0) L Aspartate Amino Transferase (AST) 16 U/L (15-37) Alanine Aminotransferase (ALT) 26 U/L (12-78) Alkaline Phosphatase 72 U/L (46-116) Total Creatine Kinase 216 U/L (26-308) Troponin I 0.000 ng/mL (0.000-0.056) Total Protein 7.5 G/DL (6.4-8.2) Albumin 3.4 G/DL (3.4-5.0) Globulin 4.1 g/dL Albumin/Globulin Ratio 0.8 (1.0-2.7) L EKG Diagnostic Results Rate: normal Rhythm: NSR ST Segments: no acute changes Rhythm Strip Diag. Results EP Interpretation: yes Rhythm: NSR, no PVC's, no ectopy Chest X-Ray Diagnostic Results Chest X-Ray Diagnostic Results : Chest X-Ray Ordered: Yes # of Views/Limited/Complete: 1 View Indication: Chest Pain EP Interpretation: Yes Interpretation: no consolidation, no effusion, no pneumothorax Impression: No acute disease Electronically Signed by: Electronically signed by Arnold Soto MD Last Vital Signs Date Time Temp Pulse Resp B/P (MAP) Pulse Ox O2 Delivery O2 Flow Rate FiO2 03/26/18 12:45 97.6 03/26/18 11:54 71 18 111/56 100 Room Air Scripts Tramadol Hcl* (ULTRAM*) 50 Mg Tablet 50 MG ORAL Q6H PRN for For Pain, #8 TAB 0 Refills Prov: Arnold Soto M.D. 03/26/18 Naproxen* (NAPROXEN*) 375 Mg Tablet.dr 375 MG ORAL TID, #20 TAB 1 Refill Prov: Arnold Soto M.D. 03/26/18 Potassium Bicarbonate/Cit Ac (EFFER-K 20 MEQ TABLET EFF) 20 Meq Tablet.eff 20 MEQ PO DAILY, #20 TAB 1 Refill Prov: Arnold Soto M.D. 03/26/18 Referrals: [facility],REFERRING (PCP) Arnold Soto M.D. Mar 26, 2018 14:32
[2018-03-26] MEDS ORDERED: TRAMADOL HCL50 MG ORAL (14:41)
[2018-03-26] MEDS ORDERED: NAPROXEN375 M2 ORAL (14:41)
[2018-03-26] MEDS ORDERED: EFFER-K 20 MEQ20 MEQ PO (14:41)
[2018-03-26 14:48] VITALS: BP 125/77
--- NOTE | 2018-03-28 13:32 | Cardiology Report ---
APPROVED REPORT EKG Measurement Heart [id number] Normal sinus rhythm Normal ECG
== END 2018-03-26 14:47 | disposition home or self-care (01) ==
LOC: EMR 12:45
DX: M94.0 Chondrocostal junction syndrome [Tietze] (principal); E87.6 Hypokalemia; I10 Essential (primary) hypertension; K21.9 Gastro-esophageal reflux disease without esophagitis; G51.0 Bell's palsy; Z86.73 Personal history of transient ischemic attack (TIA), and cerebral infarction without residual deficits; Z88.1 Allergy status to other antibiotic agents; Z88.2 Allergy status to sulfonamides
CPT/HCPCS: 36415; 71045; 80053; 81003; 82550; 84484; 85025; 87086; 87181; 93005; 99284; J1885; J8499

== ENCOUNTER 2018-04-14 13:39 | Emergency (ER) | payer MEDICAID ==
[~2018-04-14] VITALS: Ht 160 cm; Wt 68.0 kg
[~2018-04-14 13:39] MED LIST changes: +EFFER-K 20 MEQ20 MEQ PO; +NAPROXEN375 M2 ORAL
[2018-04-14] MEDS ORDERED: PEPCID AC20 M2 PO (14:00)
[2018-04-14] MEDS ORDERED: PREDNISONE20 MG ORAL (14:00)
[2018-04-14] MEDS ORDERED: BENADRYL25 MG ORAL (14:00)
--- NOTE | 2018-04-14 14:06 | Emergency Room Report ---
History of Present Illness General Chief Complaint: Skin Rash/Abscess Source: Patient Present Illness HPI Patient present with complaints of areas of rash throughout the body including the lower leg mainly Patient has had these areas coming on over the past several weeks now more recently patient had an area on the right upper thigh and also the left leg There is some itching to the area the area feels firm to the patient Denies any fevers or chills denies any neck pain or photophobia denies any abdominal pain Allergies: Coded Allergies: NITROFURANTOIN (Verified Allergy, Severe, Anaphylaxis, 07/08/16) CEPHALEXIN (Unverified Allergy, Mild, 04/15/16) METRONIDAZOLE (Unverified Allergy, Mild, 04/15/16) SULFAMETHOXAZOLE (Verified Allergy, Unknown, 01/28/17) TRIMETHOPRIM (Verified Allergy, Unknown, 01/28/17) Patient History Past Medical History: see triage record Pertinent Family History: none Last Menstrual Period: 04/11/18 Now: No : 1 Para: 1 Reviewed Nursing Documentation: PMH: Agreed; PSxH: Agreed Nursing Documentation-PMH Past Medical History: No History, Except For Hx Hypertension: Yes Hx Gastrointestinal Problems: Yes - GERD Hx Neurological Problems: Yes - Cardenas's Palsy Hx Cerebrovascular Accident: Yes Review of Systems All Other Systems: negative except mentioned in HPI Physical Exam Vital Signs Date Time Temp Pulse Resp B/P (MAP) Pulse Ox O2 Delivery O2 Flow Rate FiO2 04/14/18 13:44 98.0 100 18 134/69 97 Room Air 98.1 Sp02 EP Interpretation: reviewed, normal General Appearance: well appearing, no apparent distress Head: normocephalic, atraumatic Eyes: bilateral eye PERRL, bilateral eye EOMI ENT: hearing grossly normal, normal pharynx, TMs + canals normal, uvula midline Neck: full range of motion, supple, no meningismus, no bony tend Respiratory: lungs clear, normal breath sounds, no rhonchi, no respiratory distress, no retraction, no accessory muscle use Cardiovascular #1: normal peripheral pulses, regular rate, rhythm, no edema, no gallop, no JVD, no murmur Gastrointestinal: normal bowel sounds, non tender, soft, no mass, no organomegaly, non-distended, no guarding, no hernia, no pulsatile mass, no rebound Genitourinary: no CVA tenderness Musculoskeletal: normal inspection Neurologic: oriented x3, responsive, licensed prosthetist/orthotist III-XII nml as tested, motor strength/ tone normal, sensory intact Psychiatric: mood/affect normal Skin: other - Several areas of urticarial lesions, specifically in the right upper thigh, 2 mild raised erythematous lesions with a focal scab point, surrounding the area is a local reaction with urticaria, also on the left lower leg similar appearance no fluctuance no dermatomal spread. Lymphatic: normal inspection, no adenopathy Medical Decision Making Diagnostic Impression: Primary Impression: insect bite Additional Impression: Rash and other nonspecific skin eruption ER Course Patient's findings are consistent with likely insect bites with local reaction I do not appreciate any obvious abscess or obvious cellulitis Patient is appropriate for initial conservative attempt and treatment And will have close outpatient follow-up patient will return with any worsening symptoms Last Vital Signs Date Time Temp Pulse Resp B/P (MAP) Pulse Ox O2 Delivery O2 Flow Rate FiO2 04/14/18 13:44 98.0 100 18 134/69 97 Room Air 98.1 Status: improved Disposition: HOME, SELF-CARE Condition: Improved Scripts Famotidine (PEPCID AC) 20 Mg Tablet 20 MG PO DAILY, #10 TAB Prov: Edgardo Segal DO 04/14/18 Diphenhydramine Hcl* (BENADRYL*) 25 Mg Capsule 25 MG ORAL Q6H PRN for Itching, #20 CAP Prov: Edgardo Segal DO 04/14/18 Prednisone* (PREDNISONE*) 20 Mg Tablet 20 MG ORAL BID, #8 TAB Prov: Edgardo Segal DO 04/14/18 Patient Instructions: Rash, Insect Bite, [id number] Additional Instructions: Patient is provided with the discharge instructions notified to follow up with primary doctor in the next 2-3 days otherwise return to the er with any worsening symptoms. Please note that this report is being documented using [employer] technology. This can lead to erroneous entry secondary to incorrect interpretation by the dictating instrument. Edgardo Segal DO Apr 14, 2018 14:06
[2018-04-14 14:09] VITALS: BP 134/69
[2018-04-14 14:13] VITALS: BP 134/69
== END 2018-04-14 14:17 | disposition home or self-care (01) ==
LOC: EMR 14:16
DX: S80.862A Insect bite (nonvenomous), left lower leg, initial encounter (principal); S70.361A Insect bite (nonvenomous), right thigh, initial encounter; W57.XXXA Bitten or stung by nonvenomous insect and other nonvenomous arthropods, initial encounter; Y93.9 Activity, unspecified; Y92.9 Unspecified place or not applicable; I10 Essential (primary) hypertension; G51.0 Bell's palsy; K21.9 Gastro-esophageal reflux disease without esophagitis; Z86.73 Personal history of transient ischemic attack (TIA), and cerebral infarction without residual deficits
CPT/HCPCS: 99283; J7512

== ENCOUNTER 2018-04-18 04:35 | Emergency (ER) | payer MEDICAID ==
[~2018-04-18] VITALS: Ht 160 cm; Wt 72.6 kg
[~2018-04-18 04:35] MED LIST changes: +PEPCID AC20 M2 PO
[2018-04-18 04:50] VITALS: BP 124/72
[2018-04-18 05:01] LABS: APPEARANCE,URINE CLEAR; BILIRUBIN, URINE 3+ (NEGATIVE); COLOR,URINE BROWN; GLUCOSE, URINE (UA) NEGATIVE (NEGATIVE); KETONES,URINE NEGATIVE (NEGATIVE); LEUKOCYTE ESTERASE ,URINE 2+ (NEGATIVE); PH,URINE 6.5 (4.5-8.0); PROTEIN,URINE NEGATIVE (NEGATIVE); UROBILINOGEN,URINE 8 MG/DL (0.0-1.0)
[2018-04-18 05:04] LABS: NITRITE,URINE NEGATIVE (NEGATIVE)
--- NOTE | 2018-04-18 05:18 | Emergency Room Report ---
History of Present Illness General Chief Complaint: Abdominal Pain Present Illness HPI This patient c/o all day mild-moderate suprapubic discomfort. A/w mild dysuria, frequency. Also c/o white-lucia vag d/c, not really different than she sometimes has. , monogamous. No fever, no (other) abd pain. No vomiting. No shortness of breath, no chest pain, no nausea, no diarrhea, no syncope, LOC, dizziness, lightheadedness, headache. Allergies: Coded Allergies: NITROFURANTOIN (Verified Allergy, Severe, Anaphylaxis, 07/08/16) CEPHALEXIN (Unverified Allergy, Mild, 04/15/16) METRONIDAZOLE (Unverified Allergy, Mild, 04/15/16) SULFAMETHOXAZOLE (Verified Allergy, Unknown, 01/28/17) TRIMETHOPRIM (Verified Allergy, Unknown, 01/28/17) Patient History Last Menstrual Period: a week ago Nursing Documentation-PMH Hx Hypertension: Yes Hx Gastrointestinal Problems: Yes - GERD Hx Neurological Problems: Yes - Cardenas's Palsy Hx Cerebrovascular Accident: Yes Review of Systems Constitutional: Reports: no symptoms Eye: Reports: no symptoms ENT: Reports: no symptoms Respiratory: Reports: no symptoms Cardiovascular: Reports: no symptoms Gastrointestinal: Reports: no symptoms Genitourinary: Reports: no symptoms Musculoskeletal: Reports: no symptoms Skin: Reports: no symptoms Psychiatric: Reports: no symptoms Neurological: Reports: no symptoms Endocrine: Reports: no symptoms Hematologic/Lymphatic: Reports: no symptoms Allergic: Reports: no symptoms Physical Exam Vital Signs Date Time Temp Pulse Resp B/P (MAP) Pulse Ox O2 Delivery O2 Flow Rate FiO2 04/18/18 04:40 97.8 68 16 124/72 100 Room Air 97.9 Sp02 EP Interpretation: reviewed, normal General Appearance: normal inspection, well appearing, no apparent distress, alert, GCS 15, non-toxic Head: normocephalic, atraumatic Eyes: bilateral eye normal inspection, bilateral eye PERRL, bilateral eye EOMI ENT: normal ENT inspection, hearing grossly normal, normal pharynx, no angioedema, normal voice, moist mucus membranes Neck: normal inspection, full range of motion, supple, no meningismus, no bony tend Respiratory: normal inspection, lungs clear, normal breath sounds, no rhonchi, no respiratory distress, no retraction, no accessory muscle use, no wheezing Cardiovascular #1: normal inspection, regular rate, rhythm, no edema Gastrointestinal: normal inspection, normal bowel sounds, non tender, soft, no mass, non-distended Musculoskeletal: gait/station normal, normal range of motion Neurologic: normal inspection, alert, oriented x3, responsive, motor strength/ tone normal Psychiatric: normal inspection, judgement/insight normal, memory normal Suicide Risk Assessment: Suicidal Ideation: No Had intent to initiate attempt: No Pt's plan for suicide attempt: No Has means to complete attempt: No Skin: normal inspection, normal color, no rash, warm/dry Medical Decision Making Diagnostic Impression: Primary Impression: Vaginal discharge ER Course after d/w patient it is clear she is here b/c she is concerned re std b/c not definitely monogamous she states multiple drug allergies Last Vital Signs Date Time Temp Pulse Resp B/P (MAP) Pulse Ox O2 Delivery O2 Flow Rate FiO2 04/18/18 04:50 97.9 68 16 124/72 100 Room Air 97.9 Disposition: HOME, SELF-CARE Condition: Stable Referrals: NON PHYSICIAN (PCP) Patient Instructions: Abdominal Pain, Adult Javier Mccurdy M.D. Apr 18, 2018 05:18
[2018-04-18] MEDS ORDERED: Azithromycin 250mg tab ORAL ONE (05:45)
[2018-04-18] MEDS ORDERED: Lidocaine 1% MPF 10mg/ml 5ml INJ ONE (05:45)
[2018-04-18 06:09] VITALS: BP 131/77
[2018-04-18 06:11] VITALS: BP 131/77
== END 2018-04-18 06:12 | disposition home or self-care (01) ==
LOC: EMR 04:59
DX: N89.8 Other specified noninflammatory disorders of vagina (principal); R30.0 Dysuria; R10.9 Unspecified abdominal pain; R35.0 Frequency of micturition; I10 Essential (primary) hypertension; K21.9 Gastro-esophageal reflux disease without esophagitis; Z88.8 Allergy status to other drugs, medicaments and biological substances; Z88.2 Allergy status to sulfonamides; Z86.73 Personal history of transient ischemic attack (TIA), and cerebral infarction without residual deficits
CPT/HCPCS: 81001; 81025; 96372; 99283; Q0144

== ENCOUNTER 2018-04-28 09:22 | Emergency (ER) | payer MEDICAID ==
[~2018-04-28] VITALS: Ht 160 cm; Wt 72.6 kg
[2018-04-28] MEDS ORDERED: Solu-MEDROL 125mg Inj IVP ONE (09:45)
[2018-04-28 10:02] VITALS: BP 126/75
--- NOTE | 2018-04-28 10:18 | Emergency Room Report ---
History of Present Illness General Chief Complaint: Allergic Reaction Source: Patient Present Illness HPI Since 6 am diffuse urticaria. ?precipitant. No new med, food, environment. C/o itchy diffusely. No trauma, no fever, no shortness of breath, no chest pain, no nausea, no vomiting, no diarrhea, no abdominal pain, no syncope, LOC, dizziness , lightheadedness, headache. Allergies: Coded Allergies: NITROFURANTOIN (Verified Allergy, Severe, Anaphylaxis, 07/08/16) CEPHALEXIN (Unverified Allergy, Mild, 04/15/16) METRONIDAZOLE (Unverified Allergy, Mild, 04/15/16) SULFAMETHOXAZOLE (Verified Allergy, Unknown, 01/28/17) TRIMETHOPRIM (Verified Allergy, Unknown, 01/28/17) Nursing Documentation-[facility] Past Medical History: No History, Except For Hx Hypertension: Yes Hx Gastrointestinal Problems: Yes - GERD Hx Neurological Problems: Yes - Cardenas's Palsy Hx Cerebrovascular Accident: Yes Review of Systems Constitutional: Denies: fever Eye: Denies: acuity changes Respiratory: Denies: cough, shortness of breath Cardiovascular: Denies: chest pain Gastrointestinal: Denies: nausea, vomiting Skin: Reports: see HPI, rash Neurological: Denies: headache Physical Exam Vital Signs Date Time Temp Pulse Resp B/P (MAP) Pulse Ox O2 Delivery O2 Flow Rate FiO2 04/28/18 09:38 98.1 81 16 126/75 98 Room Air 98.1 General Appearance: well appearing, no apparent distress Head: normocephalic, atraumatic ENT: hearing grossly normal, normal voice Neck: full range of motion, supple Respiratory: no respiratory distress, speaking full sentences Musculoskeletal: no calf tenderness Neurologic: alert, normal gait Psychiatric: mood/affect normal Skin: other - urticaria arms, abd/thorax. no angioedema. Medical Decision Making Diagnostic Impression: Primary Impression: Allergic reaction ER Course starting to improve Last Vital Signs Date Time Temp Pulse Resp B/P (MAP) Pulse Ox O2 Delivery O2 Flow Rate FiO2 04/28/18 10:02 98.1 16 126/75 98 Room Air 98.1 04/28/18 09:43 81 Referrals: [facility],REFERRING (PCP) Javier Mccurdy M.D. Apr 28, 2018 10:18
[2018-04-28] MEDS ORDERED: PREDNISONE20 MG ORAL (10:19)
[2018-04-28 10:44] VITALS: BP 130/80
[2018-04-29] MEDS ORDERED: DYAZIDE1 CAP ORAL (21:09)
[2018-04-29] MEDS ORDERED: BENADRYL25 MG ORAL (21:09)
== END 2018-04-28 10:51 | disposition home or self-care (01) ==
LOC: EMR 09:46
DX: T78.40XA Allergy, unspecified, initial encounter (principal); I10 Essential (primary) hypertension; K21.9 Gastro-esophageal reflux disease without esophagitis; G51.0 Bell's palsy; Z86.73 Personal history of transient ischemic attack (TIA), and cerebral infarction without residual deficits; Z88.8 Allergy status to other drugs, medicaments and biological substances; Z88.1 Allergy status to other antibiotic agents; Z88.2 Allergy status to sulfonamides; X58.XXXA Exposure to other specified factors, initial encounter
CPT/HCPCS: 96374; 99284; J2930

== ENCOUNTER 2018-04-29 19:06 | Emergency (ER) | payer MEDICAID ==
[~2018-04-29] VITALS: Ht 160 cm; Wt 72.6 kg
[2018-04-29 19:39] VITALS: BP 134/75
[2018-04-29] MEDS ORDERED: EPINEPHrine 1mg/1ml Amp IM ONE (19:45)
--- NOTE | 2018-04-29 21:06 | Emergency Room Report ---
History of Present Illness General Chief Complaint: Skin Rash/Abscess Source: Patient Present Illness HPI Patient with rash and itching of skin. Patient seen last night with allergic reaction. Given shot with SoluMedrol. Not tolerating prednisone well. Still with itching and rash. Not taking benadryl. More central, but also on extremities. No pain - though this is reported to RN as 10/10 discomfort - to me she is complaining of itching. Headache and mild ache of arms reported at triage. No throat swelling or itching but feels like something stuck in throat. No dyspnea, NVD. No dysuria. No fevers. Minimal headache. It had started yesterday at 6 am. ROS for allergy negative. Seen last July after taking Levaquin for allergic reaction. Listed multiple medication allergies. No recent antibiotics. States has run out of antihypertensive meds. Allergies: Coded Allergies: NITROFURANTOIN (Verified Allergy, Severe, Anaphylaxis, 07/08/16) CEPHALEXIN (Unverified Allergy, Mild, 04/15/16) METRONIDAZOLE (Unverified Allergy, Mild, 04/15/16) SULFAMETHOXAZOLE (Verified Allergy, Unknown, 01/28/17) TRIMETHOPRIM (Verified Allergy, Unknown, 01/28/17) Patient History Past Medical History: see triage record Social History: Denies: smoking Social History Narrative working Now: No Reviewed Nursing Documentation: PMH: Agreed; PSxH: Agreed Nursing Documentation-PMH Past Medical History: No History, Except For Hx Hypertension: Yes Hx Gastrointestinal Problems: Yes - GERD Hx Neurological Problems: Yes - Cardenas's Palsy Hx Cerebrovascular Accident: Yes Review of Systems All Other Systems: negative except mentioned in HPI Physical Exam Vital Signs Date Time Temp Pulse Resp B/P (MAP) Pulse Ox O2 Delivery O2 Flow Rate FiO2 04/29/18 19:22 97.8 78 134/75 98 Room Air 97.9 04/29/18 19:39 16 Sp02 EP Interpretation: reviewed, normal General Appearance: well appearing, no apparent distress, GCS 15 Head: normocephalic Eyes: bilateral eye normal inspection, bilateral eye PERRL ENT: normal pharynx, no angioedema, moist mucus membranes, other - no foreign body pharynx and swallows without difficulty Neck: supple Respiratory: lungs clear, normal breath sounds Cardiovascular #1: regular rate, rhythm Cardiovascular #2: 2+ radial (R) Gastrointestinal: normal inspection, normal bowel sounds, non tender, no mass, non-distended Musculoskeletal: back normal, gait/station normal, normal range of motion Neurologic: alert, oriented x3, grossly normal Psychiatric: mood/affect normal Skin: warm/dry, other - wheel flare reaction diffuse, more centrally Medical Decision Making Diagnostic Impression: Primary Impression: Hives Additional Impression: Allergic reaction Qualified Codes: T78.40XD - Allergy, unspecified, subsequent encounter ER Course Patient with skin rash after treatment for allergy yesterday with Solumedrol. DDx: continued allergic reaction, viral syndrome, other causes for hives ( emotional, etc.) amongst others. No resp distress or angioedema. Afebrile. Will treat with epi. Refuses to take prednisone. OK with benadryl. Markedly improved post epi. Wants Rx for BP meds. Patient stable for outpatient observation and treatment Last Vital Signs Date Time Temp Pulse Resp B/P (MAP) Pulse Ox O2 Delivery O2 Flow Rate FiO2 04/29/18 21:13 97.9 78 16 134/75 98 Room Air 97.9 Status: improved Disposition: HOME, SELF-CARE Condition: Improved Scripts Triamterene/Hctz (Triamterene-Hctz 37.5-25 mg Cp) 1 Each Capsule 1 CAP ORAL DAILY, #10 CAP 0 Refills Prov: Arnold Soto M.D. 04/29/18 Diphenhydramine Hcl* (BENADRYL*) 25 Mg Capsule 25 MG ORAL Q6H PRN for Itching, #20 CAP Prov: Arnold Soto M.D. 04/29/18 Referrals: [facility],REFERRING (PCP) Arnold Soto M.D. Apr 29, 2018 21:06
[2018-04-29] MEDS ORDERED: BENADRYL25 MG ORAL (21:09)
[2018-04-29] MEDS ORDERED: DYAZIDE1 CAP ORAL (21:09)
[2018-04-29 21:13] VITALS: BP 134/75
== END 2018-04-29 21:13 | disposition home or self-care (01) ==
LOC: EMR 19:40
DX: L50.0 Allergic urticaria (principal)
CPT/HCPCS: 96372; 99283; J0171

== ENCOUNTER 2018-06-17 20:04 | Emergency (ER) | payer MEDICAID ==
[~2018-06-17] VITALS: Ht 160 cm; Wt 74.8 kg
[~2018-06-17 20:04] MED LIST changes: +DYAZIDE1 CAP ORAL
[2018-06-17] MEDS ORDERED: Phenazopyridine 200mg tab ORAL ONE (20:45)
[2018-06-17] MEDS ORDERED: Fluconazole 100mg tab ORAL ONE (20:45)
[2018-06-17 21:01] VITALS: BP 141/81
[2018-06-17 21:03] LABS: APPEARANCE,URINE CLEAR; BILIRUBIN, URINE NEGATIVE (NEGATIVE); COLOR,URINE PALE YELLOW; GLUCOSE, URINE (UA) NEGATIVE (NEGATIVE); KETONES,URINE NEGATIVE (NEGATIVE); LEUKOCYTE ESTERASE ,URINE 2+ (NEGATIVE); NITRITE,URINE NEGATIVE (NEGATIVE); PH,URINE 6.5 (4.5-8.0); PROTEIN,URINE NEGATIVE (NEGATIVE); UROBILINOGEN,URINE NORMAL MG/DL (0.0-1.0)
--- NOTE | 2018-06-17 21:31 | Emergency Room Report ---
History of Present Illness General Chief Complaint: Female Urogenital Problems Present Illness HPI 47 -year-old female presents to the emergency department complaining of vaginal itching, 10/10 in severity dysuria, lower abdominal cramping and low back pain progressive over the course of one week. Patient reports slight malodor as well as clear/whitish discharge. Patient reports recent unprotected intercourse with her and is not suspicious of STDs at this time. Patient denies nausea, vomiting, fevers, chills or hematuria. Patient denies joint pain or swollen tender lymph nodes. Denies rash or external genital lesions. Denies recent antibiotic use. Allergies: Coded Allergies: NITROFURANTOIN (Verified Allergy, Severe, Anaphylaxis, 07/08/16) CEPHALEXIN (Unverified Allergy, Mild, 04/15/16) METRONIDAZOLE (Unverified Allergy, Mild, 04/15/16) SULFAMETHOXAZOLE (Verified Allergy, Unknown, 01/28/17) TRIMETHOPRIM (Verified Allergy, Unknown, 01/28/17) Patient History Past Medical History: see triage record Past Surgical History: none Pertinent Family History: none Last Menstrual Period: 05/28/2018 Now: No : 1 Para: 1 Reviewed Nursing Documentation: PMH: Agreed; PSxH: Agreed Nursing Documentation-PMH Hx Hypertension: Yes Hx Gastrointestinal Problems: Yes - GERD Hx Neurological Problems: Yes - Cardenas's Palsy Hx Cerebrovascular Accident: Yes - 1988 Review of Systems All Other Systems: negative except mentioned in HPI Physical Exam Vital Signs Date Time Temp Pulse Resp B/P (MAP) Pulse Ox O2 Delivery O2 Flow Rate FiO2 06/17/18 20:24 98.3 82 18 141/81 99 Room Air 98.2 Sp02 EP Interpretation: reviewed, normal General Appearance: no apparent distress, alert, GCS 15, non-toxic Head: normocephalic, atraumatic Eyes: bilateral eye normal inspection, bilateral eye PERRL ENT: hearing grossly normal, normal voice Neck: full range of motion Respiratory: lungs clear, normal breath sounds, speaking full sentences Cardiovascular #1: regular rate, rhythm Gastrointestinal: normal bowel sounds, non tender, soft, non-distended, no guarding Genitourinary: normal inspection, no CVA tenderness, deferred - pelvic or wet mount Musculoskeletal: back normal, gait/station normal, normal range of motion, non- tender Neurologic: alert, oriented x3, responsive, motor strength/tone normal, sensory intact, normal gait, speech normal, grossly normal Psychiatric: judgement/insight normal Skin: normal color, no rash, warm/dry, well hydrated Medical Decision Making PA Attestation Dr. Swan is my supervising physician whom pt. management has been discussed with. Diagnostic Impression: Primary Impression: Vaginitis Qualified Codes: N76.0 - Acute vaginitis Additional Impression: Medication refill ER Course 47 -year-old female presents to the emergency department complaining of vaginal itching, 10/10 in severity dysuria, lower abdominal cramping and low back pain progressive over the course of one week. Patient reports slight malodor as well as clear/whitish discharge. Patient reports recent unprotected intercourse with her and is not suspicious of STDs at this time. Patient denies nausea, vomiting, fevers, chills or hematuria. Patient denies joint pain or swollen tender lymph nodes. Denies rash or external genital lesions. Denies recent antibiotic use. --patient also requests refill of albuterol inhaler as well as medication for acid reflux. Ddx considered but are not limited to UTi , Pyelo, STI, Stone, Cystitis, vaginal laceration, vaginitis, muscle strain just to name a few. Vital signs: are WNL, pt. is afebrile H& PE are most consistent with: Vaginitis ORDERS: - UA labs are attached -Most indicative of contamination: presence of equal amounts of bacteria and squamous cells, no elevation in inflammatory markers, nitrite negative. ED INTERVENTIONS: -Diflucan PO DISCHARGE: At this time pt. is stable for d/c to home. Will provide printed patient care instructions, and any necessary prescriptions. Care plan and follow up instructions have been discussed with the patient prior to discharge. discussed with the patient prior to discharge. Labs Test 06/17/18 20:52 Urine Color Pale yellow Urine Appearance Clear Urine pH 6.5 (4.5-8.0) Urine Specific [place] 1.010 (1.005-1.035) Urine Protein Negative (NEGATIVE) Urine Glucose (UA) Negative (NEGATIVE) Urine Ketones Negative (NEGATIVE) Urine Blood Negative (NEGATIVE) Urine Nitrite Negative (NEGATIVE) Urine Bilirubin Negative (NEGATIVE) Urine Urobilinogen Normal MG/DL (0.0-1.0) Urine Leukocyte Esterase 2+ (NEGATIVE) Urine RBC 0-2 /HPF (0 - 2) Urine WBC 2-4 /HPF (0 - 2) Urine Squamous Epithelial Cells Few /LPF (NONE/OCC) Urine Amorphous Sediment Few /LPF (NONE) Urine Bacteria Few /HPF (NONE) Urine HCG, Qualitative Negative (NEGATIVE) Last Vital Signs Date Time Temp Pulse Resp B/P (MAP) Pulse Ox O2 Delivery O2 Flow Rate FiO2 06/17/18 21:01 97.8 82 18 141/81 99 Room Air 97.8 Disposition: HOME, SELF-CARE Condition: Stable Scripts Ranitidine Hcl* (ZANTAC*) 150 Mg Tablet 150 MG ORAL DAILY, #30 TAB 0 Refills Prov: Karen Rodriguez 06/17/18 Albuterol Sulfate* (ALBUTEROL SULFATE MDI*) 8.5 Gm Hfa.aer.ad 2 PUFF INH Q3H, #1 INH 2 Refills Prov: Karen Rodriguez 06/17/18 Fluconazole (FLUCONAZOLE) 100 Mg Tablet 100 MG ORAL DAILY, #2 TAB 0 Refills Prov: Karen Rodriguez 06/17/18 Metronidazole* (METROGEL-VAGINAL*) 70 Gm Gel.w.appl 1 APPL VAGIN EVERY 12 HOURS, #70 GM Prov: Karen Rodriguez 06/17/18 Patient Instructions: Vaginitis Additional Instructions: Take medications as directed. Follow up with a Primary Care Provider in 3-5 days, even if your symptoms have resolved. --Ask about ALLERGY TESTING Return sooner to ED if new symptoms occur, or current symptoms become worse. - Please note that this Emergency Department Report was dictated using [employer]broad[employer] technician technology software, occasionally this can lead to erroneous entry secondary to interpretation by the dictation equipment. Karen Rodriguez Jun 17, 2018 21:31
[2018-06-17] MEDS ORDERED: FLUCONAZOLE100 MG ORAL (21:32)
[2018-06-17] MEDS ORDERED: METROGEL-VAGINA70 G1 VAGIN (21:32)
[2018-06-17] MEDS ORDERED: ALBUTEROL SULF8.5 GM INH (21:32)
[2018-06-17] MEDS ORDERED: ZANTAC150 MG ORAL (21:32)
[2018-06-17 21:51] VITALS: BP 115/75
== END 2018-06-17 22:00 | disposition home or self-care (01) ==
LOC: EMR 21:39
DX: N76.0 Acute vaginitis (principal); Z76.0 Encounter for issue of repeat prescription; K21.9 Gastro-esophageal reflux disease without esophagitis; I10 Essential (primary) hypertension; Z88.2 Allergy status to sulfonamides; G51.0 Bell's palsy; Z86.73 Personal history of transient ischemic attack (TIA), and cerebral infarction without residual deficits
CPT/HCPCS: 81003; 81025; 99283

== ENCOUNTER 2018-08-24 18:59 | Emergency (ER) | payer MEDICAID ==
[~2018-08-24] VITALS: Ht 160 cm; Wt 74.8 kg
[2018-08-24] MEDS ORDERED: Fluconazole 100mg tab ORAL ONE (20:00)
[2018-08-24 20:25] LABS: APPEARANCE,URINE CLEAR; BILIRUBIN, URINE NEGATIVE (NEGATIVE); COLOR,URINE PALE YELLOW; GLUCOSE, URINE (UA) NEGATIVE (NEGATIVE); KETONES,URINE NEGATIVE (NEGATIVE); LEUKOCYTE ESTERASE ,URINE 1+ (NEGATIVE); NITRITE,URINE NEGATIVE (NEGATIVE); PH,URINE 6 (4.5-8.0); PROTEIN,URINE NEGATIVE (NEGATIVE); UROBILINOGEN,URINE NORMAL MG/DL (0.0-1.0)
[2018-08-24] MEDS ORDERED: PHENAZOPYRIDIN100 MG ORAL (21:54)
[2018-08-24] MEDS ORDERED: METROGEL-VAGINA70 G1 VAGIN (21:54)
--- NOTE | 2018-08-24 21:54 | Emergency Room Report ---
History of Present Illness General Chief Complaint: Abdominal Pain Source: Patient Present Illness HPI 48-year-old female patient presents to the ER with multiple complaints. Patient reports she has had frequency and dysuria for the past few days. Also notes white vaginal discharge, states it is pruritic. Also states she has had a foul-smelling odor. Denies hematuria. Denies bloody vaginal discharge. Reports history of similar symptoms in the past. Denies diarrhea. Reports last bowel movement earlier today. Reports suprapubic discomfort. Denies fever , chest pain, shortness of breath. Also notes twitching of right eye. States twitching has been present for the past 2 days. 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 Denies taking blood thinner medications. Denies fever, chest pain, shortness of breath. Denies recent trauma or injury. Denies vomiting or vision changes. Denies photophobia or phonophobia. Allergies: Coded Allergies: NITROFURANTOIN (Verified Allergy, Severe, Anaphylaxis, 07/08/16) CEPHALEXIN (Unverified Allergy, Mild, 04/15/16) METRONIDAZOLE (Unverified Allergy, Mild, 04/15/16) SULFAMETHOXAZOLE (Verified Allergy, Unknown, 01/28/17) TRIMETHOPRIM (Verified Allergy, Unknown, 01/28/17) Patient History Past Medical History: see triage record Last Menstrual Period: One week ago Now: No Reviewed Nursing Documentation: PMH: Agreed; PSxH: Agreed Nursing Documentation-PMH Hx Hypertension: Yes Hx Asthma: Yes Hx Gastrointestinal Problems: Yes - Acid Reflux Hx Neurological Problems: Yes - Cardenas's Palsy Hx Cerebrovascular Accident: Yes - 1988 Review of Systems All Other Systems: negative except mentioned in HPI Physical Exam Vital Signs Date Time Temp Pulse Resp B/P (MAP) Pulse Ox O2 Delivery O2 Flow Rate FiO2 08/24/18 19:18 97.9 82 16 133/74 99 Room Air Sp02 EP Interpretation: reviewed, normal General Appearance: well appearing, no apparent distress, alert, GCS 15, non- toxic Head: normocephalic, atraumatic Eyes: bilateral eye normal inspection, bilateral eye PERRL ENT: hearing grossly normal, normal pharynx, no angioedema, normal voice, uvula midline, moist mucus membranes Neck: full range of motion Respiratory: lungs clear, normal breath sounds, no rhonchi, no respiratory distress, no accessory muscle use, no wheezing, speaking full sentences Cardiovascular #1: regular rate, rhythm, no edema Gastrointestinal: non tender, soft, no mass, non-distended, no guarding, no rebound Genitourinary: no CVA tenderness, deferred Musculoskeletal: back normal, digits/nails normal, gait/station normal, normal range of motion, non-tender Neurologic: alert, oriented x3, responsive, athletic trainer III-XII nml as tested, motor strength/tone normal, sensory intact, cerebellar normal, normal gait, speech normal, other - left facial droop; Psychiatric: mood/affect normal Skin: no rash Medical Decision Making PA Attestation Dr. Magana is my supervising Physician whom patient management has been discussed with. Diagnostic Impression: Primary Impression: Yeast infection Additional Impression: Bacterial vaginosis ER Course Pt presents to ED c/o urinary symptoms and twitching of right eye. DDX considered but are not limited to cystitis, pyelonephritis, STI, vaginitis, PID, bacterial vaginosis, yeast infection. No abdominal tenderness to palpation, negative finish rolls operator, negative Sim, negative Rovsing, low suspicion for cholecystitis or appendicitis, does not require imaging or labs at this time. VITAL SIGNS are WNL, patient is afebrile. Ordered UA. ER COURSE Clinical history consistent with possible bacterial vaginosis, will provide patient with metronidazole topically. Patient states that oral Flagyl medication she has allergic reaction to however she has been able to tolerate the vaginal itching eyes on the past. UA results show no signs of infection many epithelial cells, likely contaminated sample, negative nitrites, yeast present, does not indicate UTI, will not treat with abx, patient provided with fluconazole in the ER for yeast infection. Followup with OBGYN. If concern for STI, followup with STI clinic for testing and treatment. Denies STI concern. Symptoms present for several days, no focal neuro deficits, cranial nerves intact as tested, not taking any blood thinner medication, low suspicion for stroke or cerebrovascular event, does not require further workup for twitching. Facial droop on left side chronic per patient, not new in onset. No right- sided facial droop, able to raise eyebrow and wrinkle forehead. Does not require evaluation or treatment. Follow-up with neurology for twitching symptoms. Patient not observed twitching the ER. Does not require further evaluation workup. Advised patient to drink plenty fluids. Followup with urology, contact information provided. ER precautions given. DISCHARGE Patient is stable for discharge. Patient resting comfortably, in no acute distress, nontoxic appearing, talking without difficulty. Will provide with patient care instructions and any necessary prescriptions. Patient understands and agrees to treatment plan. Patient encouraged to drink plenty of fluids. Patient to take medication as instructed. Care plan and follow-up instructions provided. Patient questions asked and answered. Reports understanding and agreement to treatment plan. Patient instructed to follow-up with primary care provider in 3 - 5 days. ER precautions given. Patient instructed to return to ER immediately for any new or worsening of symptoms. Including but not limited to fever, abdominal pain , intractable vomiting. - Please note that this Emergency Department Report was dictated using [employer] assistant technology software, occasionally this can lead to erroneous entry secondary to interpretation by the dictation equipment. Labs Test 08/24/18 19:40 Urine Color Pale yellow Urine Appearance Clear Urine pH 6 (4.5-8.0) Urine Specific [place] 1.015 (1.005-1.035) Urine Protein Negative (NEGATIVE) Urine Glucose (UA) Negative (NEGATIVE) Urine Ketones Negative (NEGATIVE) Urine Blood Negative (NEGATIVE) Urine Nitrite Negative (NEGATIVE) Urine Bilirubin Negative (NEGATIVE) Urine Urobilinogen Normal MG/DL (0.0-1.0) Urine Leukocyte Esterase 1+ (NEGATIVE) Urine RBC 0-2 /HPF (0 - 2) Urine WBC 2-4 /HPF (0 - 2) Urine Squamous Epithelial Cells Moderate /LPF (NONE/OCC) Urine Bacteria Moderate /HPF (NONE) Urine Yeast Few /HPF (NONE) Last Vital Signs Date Time Temp Pulse Resp B/P (MAP) Pulse Ox O2 Delivery O2 Flow Rate FiO2 08/24/18 19:18 97.9 82 16 133/74 99 Room Air Disposition: HOME, SELF-CARE Condition: Stable Scripts Metronidazole* (METROGEL-VAGINAL*) 70 Gm Gel.w.appl 1 APPL VAGIN EVERY 12 HOURS, #70 GM Prov: Randall Singh.Eloy 08/24/18 Phenazopyridine Hcl* (PYRIDIUM*) 100 Mg Tablet 100 MG ORAL THREE TIMES A DAY, #15 TAB Prov: Randall Singh 08/24/18 Referrals: [facility],REFERRING (PCP) Patient Instructions: Bacterial Vaginosis, [id number], Muscle Cramps and Spasms, [id number], Vaginal Yeast Infection, Adult Additional Instructions: Followup with primary care provider and followup with and./or OBGYN. Followup with neurology for twitching symptoms. Drink plenty of fluids. Take medications as directed. Pyridium has SE of turning urine orange. Patient questions asked and answered. ER precautions given, patient instructed to return to ER immediately for any new or worsening of symptoms. Randall Singh Aug 24, 2018 21:54
[2018-08-24 21:55] VITALS: BP 133/74
[2018-08-24 21:57] VITALS: BP 133/74
--- NOTE | 2018-08-25 12:48 | Diagnostic Imaging Report ---
Indication: Abdomen pain Technique: Supine view of the abdomen Comparison: none Findings: There is considerable stool throughout the colon. Small bowel gas is unremarkable. No unusual masses or calcifications. The bones are unremarkable. Impression: Possible constipation No acute process otherwise
== END 2018-08-24 22:00 | disposition home or self-care (01) ==
LOC: EMR 19:54
DX: B37.9 Candidiasis, unspecified (principal); N76.0 Acute vaginitis; B96.89 Other specified bacterial agents as the cause of diseases classified elsewhere; I10 Essential (primary) hypertension; J45.909 Unspecified asthma, uncomplicated; K21.9 Gastro-esophageal reflux disease without esophagitis; Z86.73 Personal history of transient ischemic attack (TIA), and cerebral infarction without residual deficits; Z88.2 Allergy status to sulfonamides; Z88.1 Allergy status to other antibiotic agents
CPT/HCPCS: 74018; 81003; 87086; 99283

== ENCOUNTER 2018-09-30 11:42 | Emergency (ER) | payer MEDICAID ==
[~2018-09-30] VITALS: Ht 172.7 cm; Wt 74.8 kg
[~2018-09-30 11:42] MED LIST changes: +PHENAZOPYRIDIN100 MG ORAL
--- NOTE | 2018-09-30 11:55 | NUR ---
ED Nurse Note: patient walked into the ED c/o sorethroat, flu like symptom, patient states that she has trouble swallowing due to her sorethroat since yesterday,
[2018-09-30] MEDS ORDERED: Lidocaine 2% Visc 15ml soln ORAL ONE (12:15)
--- NOTE | 2018-09-30 12:19 | NUR ---
ED Nurse Note: flu swab sent down to the lab
--- NOTE | 2018-09-30 12:26 | Emergency Room Report ---
History of Present Illness General Chief Complaint: Flu Like Symptoms Source: Medical Record Present Illness HPI 48-year-old female patient presents the ER with multiple complaints. Patient reports multiple episode of diarrhea and vomiting, last episode of vomiting earlier today. Denies blood in stool or emesis. Denies recent travel outside the country. Reports sore throat and feeling of "something stuck in throat" secondary to vomiting symptoms. Patient speaking full sentences in the ER currently. Reports contact with kids at home who have been sick. Also complaining of generalized muscle aches and pains. Reports chest pain that is reproducible, reports shortness of breath, reports history of asthma, states has an inhaler however is currently out of the medication. Denies history of NE or stroke. Denies syncopal episode. Also reports mild discomfort with urination. States small white "cottage cheese like" discharge. Holley concern for STI, reports one partner, mutually monogamous relationship. Denies hematuria. Denies other acute aggravating or relieving factors. States did not receive the flu vaccine this year. Denies calf pain. 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 Review of Systems All Other Systems: negative except mentioned in HPI Physical Exam Vital Signs Date Time Temp Pulse Resp B/P (MAP) Pulse Ox O2 Delivery O2 Flow Rate FiO2 09/30/18 11:45 98.2 100 19 125/72 96 Room Air Sp02 EP Interpretation: reviewed, normal General Appearance: well appearing, no apparent distress, alert, GCS 15, non- toxic Head: normocephalic, atraumatic Eyes: bilateral eye normal inspection, bilateral eye PERRL ENT: hearing grossly normal, normal pharynx, no angioedema, normal voice, TMs + canals normal, uvula midline, moist mucus membranes Neck: full range of motion, no meningismus, no bony tend Respiratory: lungs clear, no rhonchi, no respiratory distress, no accessory muscle use, no wheezing, decreased breath sounds, speaking full sentences, other - chest TTP, no flail chest Cardiovascular #1: regular rate, rhythm, no edema, normal capillary refill Cardiovascular #2: 2+ radial (R), 2+ radial (L) Gastrointestinal: non tender, soft, no mass, non-distended, no guarding, no rebound Genitourinary: no CVA tenderness Musculoskeletal: back normal, digits/nails normal, gait/station normal, normal range of motion, non-tender, no calf tenderness, Carlos Eduardo's Sign negative Neurologic: alert, oriented x3, responsive, motor strength/tone normal, sensory intact Psychiatric: mood/affect normal Skin: no rash, normal turgor Medical Decision Making PA Attestation Dr. Magana is my supervising Physician whom patient management has been discussed with. Diagnostic Impression: Primary Impression: Influenza-like symptoms Additional Impressions: Asthma exacerbation Vomiting and diarrhea Yeast infection Non-cardiac chest pain ER Course Pt presents to ED with multiple complaints including sore throat, reproducible chest pain, difficulty breathing, vomiting, diarrhea, generalized muscle aches and pains. DX considered but are not limited to influenza, viral URI, pneumonia, strep throat, rhinitis, sinusitis, otitis media, cystitis, pyelonephritis, STI, vaginitis, , BV, yeast infection, NE, CHF, PE, peritonsillar abscess. No abdominal TTP, negative obturator, negative Sim, negative Rovsing, low suspicion for cholecystitis or appendicitis, does not require imaging or labs at this time. No calf pain, no hemoptysis, negative Carlos Eduardo, no recent travel, Low suspicion for PE per well's criteria. No tonsillar exudates, no pharyngeal erythema, history of cough, no fever, no stridor, uvula midline, low suspicion for peritonsillar abscess. No abdominal TTP, negative Rovsing, normal bowel sounds, does not require CT abdomen or labs at this time. VITAL SIGNS are WNL, patient is afebrile. ER COURSE: IV fluids provided to patient. Prednisone and breathing treatment provided to patient. patient reports breathing symptoms improved but still complains of breathing symptoms, requesting repeat breathing treatment. Followup second breathing treatment, reports breathing improved following breathing treatment. Lung sounds improved on auscultation. Will discharge patient home with albuterol and prednisone, begin taking prednisone tomorrow, first does provided in the ER. CXR negative for acute disease. No fever, no crackles on auscultation, does not require abx, low suspicion for PNA. EKG shows no ST elevation or T wave inversions. On PE, chest is TTP; chest pain likely musculoskeletal in nature, does not require cardiac workup at this time. Chest pain reproducible, chest x-ray and EKG showed no ST elevations or signs of CHF, does not require cardiac workup at this time, follow-up with blemish remover for further evaluation and treatment. Discussed need for cardiac stress test at that time. Patient instructed to take NSAIDs as needed for pain symptoms. Influenza swab negative, however due to patient clinical symptoms and presentation, will provide with Tamiflu. Clinical history consistent with yeast infection, will provide patient with fluconazole in the ER. UA results unremarkable, negative for nitrites, low suspicion for UTI, will not provide patient with antibiotics at discharge. Patient reports that her " throat swells up" when she takes Keflex, Bactrim, Macrobid. Urine negative. Followup with , take Tylenol for pain symptoms. Likely viral etiology of symptoms. Symptomatic treatment. drink plenty of fluids. Salt water gargles for sore throat. Followup with PCP for further treatment and/or referral as needed. Patient informed of likely viral cause of symptoms. No fever, no blood in stool, no recent travel or hospitalizations, does not require abx treatment at this time. No signs of dehydration, moist mucus membranes, cap refil <2seconds, normal skin turgor. Patient reports eating and drinking normally. Patient reports symptoms improved, OK for outpatient followup and treatment. ER precautions given. DISCHARGE: At this time pt is stable for d/c to home. Patient is resting comfortably, in no acute distress, nontoxic appearing. Patient to take medications as instructed Will provide with patient care instructions and any necessary prescriptions. Care plan and follow-up instructions provided. Patient instructed to follow-up with primary care provider in 3 - 5 days. Patient questions asked and answered. Patient reports understanding and agreement to treatment plan. ER precautions given. Patient instructed to return to ER immediately for any new or worsening of symptoms including but not limited to increasing SOB, persistent fever, intractable vomiting. - Please note that this Emergency Department Report was dictated using [employer] sweatband cutter technology software, occasionally this can lead to erroneous entry secondary to interpretation by the dictation equipment. Labs Test 09/30/18 12:28 Urine Color Brown Urine Appearance Clear Urine pH 8 (4.5-8.0) Urine Specific [place] 1.010 (1.005-1.035) Urine Protein Negative (NEGATIVE) Urine Glucose (UA) Negative (NEGATIVE) Urine Ketones Negative (NEGATIVE) Urine Blood Negative (NEGATIVE) Urine Nitrite Negative (NEGATIVE) Urine Bilirubin 2+ (NEGATIVE) Urine Ictotest Negative (NEGATIVE) Urine Urobilinogen 4 MG/DL (0.0-1.0) Urine Leukocyte Esterase 1+ (NEGATIVE) Urine RBC 0 /HPF (0 - 2) Urine WBC 0-2 /HPF (0 - 2) Urine Squamous Epithelial Cells Occasional /LPF Urine Bacteria None /HPF (NONE) Urine HCG, Qualitative Negative (NEGATIVE) EKG Diagnostic Results Rate: tachycardiac Rhythm: NSR ST Segments: no acute changes ASA given to the pt in ED: No PA Scribe Text Get Singh PA-C Rhythm Strip Diag. Results EP Interpretation: yes Rate: 101 Rhythm: NSR, no PVC's, no ectopy PA Scribe Text Get Singh PA-C Last Vital Signs Date Time Temp Pulse Resp B/P (MAP) Pulse Ox O2 Delivery O2 Flow Rate FiO2 09/30/18 11:45 98.2 100 19 125/72 96 Room Air Status: improved Disposition: HOME, SELF-CARE Condition: Stable Scripts Acetaminophen* (TYLENOL EXTRA STRENGTH*) 500 Mg Tablet 500 MG ORAL Q8H PRN for Prn Headache/Temp > 101, #30 TAB 0 Refills Prov: Randall Singh.A. 09/30/18 Prednisone* (PREDNISONE*) 20 Mg Tablet 40 MG ORAL DAILY for 4 Days, #8 TAB Prov: Randall Singh.A. 09/30/18 Albuterol Sulfate* (ALBUTEROL SULFATE MDI*) 8.5 Gm Hfa.aer.ad 2 PUFF INH Q6H, #1 INH 0 Refills Prov: Randall Singh.A. 09/30/18 Oseltamivir Phosphate (Tamiflu) 75 Mg Capsule 75 MG ORAL TWICE A DAY for 5 Days, #10 CAP Prov: Randall Singh 09/30/18 Referrals: NON PHYSICIAN (PCP) Patient Instructions: Asthma Attack Prevention, Diarrhea, Adult, [id number], Influenza, Adult, [id number], Nausea and Vomiting, Adult, [id number]-Fiha Additional Instructions: Followup with primary care provider and followup with and./or OBGYN. Discuss breathing symptoms and need for referral to pulmonology. Drink plenty of fluids. Avoid spicy foods, avoid dairy foods. BRAT diet: bananas, rice, apple sauce, toast. Consider Immodium for diarrhea and Tylenol for pain symptoms. Salt water gargles for sore throat. Take medications as directed. Supportive treatment at home. Patient questions asked and answered. ER precautions given, patient instructed to return to ER immediately for any new or worsening of symptoms. Randall Singh Sep 30, 2018 12:26
[2018-09-30] MEDS ORDERED: Albuterol/Ipratropium 3ml neb HHN ONE ×2 (12:30→15:00)
[2018-09-30 12:33] VITALS: BP 125/72
--- NOTE | 2018-09-30 12:36 | NUR ---
ED Nurse Note: called RT for tx, offered pt for sandwich she said ok, Get BLUNT said ok.
--- NOTE | 2018-09-30 12:40 | NUR ---
ED Nurse Note: ua sent down to the lab
[2018-09-30 12:47] LABS: APPEARANCE,URINE CLEAR; BILIRUBIN, URINE 2+ (NEGATIVE); COLOR,URINE BROWN; GLUCOSE, URINE (UA) NEGATIVE (NEGATIVE); KETONES,URINE NEGATIVE (NEGATIVE); LEUKOCYTE ESTERASE ,URINE 1+ (NEGATIVE); PH,URINE 8 (4.5-8.0); PROTEIN,URINE NEGATIVE (NEGATIVE); UROBILINOGEN,URINE 4 MG/DL (0.0-1.0)
[2018-09-30] MEDS ORDERED: Fluconazole 100mg tab ORAL ONE (13:15)
[2018-09-30 13:22] LABS: NITRITE,URINE NEGATIVE (NEGATIVE)
--- NOTE | 2018-09-30 14:20 | Diagnostic Imaging Report ---
Indication: Cough Comparison: 03/26/2018 A single view chest radiograph was obtained. Findings: Cardiomediastinal appearance is within normal limits for age. The lungs are clear. Pulmonary vascularity is appropriate. The diaphragmatic contour is smooth and costophrenic angles are sharp. No pleural effusions are identified. The bones are unremarkable. Impression: No acute findings
[2018-09-30] MEDS ORDERED: Albuterol/Ipratropium 3ml neb ONE (14:47)
[2018-09-30] MEDS ORDERED: TAMIFLU75 MG ORAL (15:28)
[2018-09-30] MEDS ORDERED: TYLENOL EXTRA500 MG ORAL (15:28)
[2018-09-30] MEDS ORDERED: ALBUTEROL SULF8.5 GM INH (15:28)
[2018-09-30] MEDS ORDERED: PREDNISONE20 MG ORAL (15:28)
[2018-09-30 16:13] VITALS: BP 128/74
--- NOTE | 2018-09-30 16:13 | NUR ---
ED Nurse Note: Pt. AAOx4. ambulatory. left with steady gait. Pt. education done regarding d/c papers. Pt. verbalized the understanding of the teaching. Left with all her belongings.
--- NOTE | 2018-10-01 15:59 | Cardiology Report ---
APPROVED REPORT EKG Measurement Heart [id number] Sinus tachycardia Possible Left atrial enlargement Borderline ECG
== END 2018-09-30 16:14 | disposition home or self-care (01) ==
LOC: EMR 12:05
DX: J11.1 Influenza due to unidentified influenza virus with other respiratory manifestations (principal); J45.901 Unspecified asthma with (acute) exacerbation; R19.7 Diarrhea, unspecified; R11.10 Vomiting, unspecified; R07.89 Other chest pain; B37.9 Candidiasis, unspecified; I10 Essential (primary) hypertension; K21.9 Gastro-esophageal reflux disease without esophagitis; Z88.8 Allergy status to other drugs, medicaments and biological substances; Z88.2 Allergy status to sulfonamides; Z86.73 Personal history of transient ischemic attack (TIA), and cerebral infarction without residual deficits
CPT/HCPCS: 71045; 81003; 81025; 86710; 93005; 94640; 94664; 96360; 99284; J7512; J7620

== ENCOUNTER 2018-10-01 18:36 | Emergency (ER) | payer MEDICAID ==
[~2018-10-01] VITALS: Ht 160 cm; Wt 74.4 kg
[~2018-10-01 18:36] MED LIST changes: +TAMIFLU75 MG ORAL; +TYLENOL EXTRA500 MG ORAL
--- NOTE | 2018-10-01 19:02 | Emergency Room Report ---
History of Present Illness General Chief Complaint: Headache Source: Patient Present Illness HPI 48 year old female presents to the emergency department complaining of 9 out of 10 in severity headache that has been progressive. Patient reports that she has some symptoms yesterday however after taking her dose of prednisone this morning she had significant increase in her headache. Patient states that medications are not working she is recently taking Tamiflu which she was prescribed yesterday. Patient denies fevers but reports chills. Patient also reports being at work and having a hot flash and feeling numbness tingling in the bilateral hands that resolved on its own. Patient denies facial droop, slurred speech, difficulty with speech, unilateral weakness, sudden onset of her headache, neck pain or stiffness or photophobia. Allergies: Coded Allergies: NITROFURANTOIN (Verified Allergy, Severe, Anaphylaxis, 07/08/16) CEPHALEXIN (Unverified Allergy, Mild, 04/15/16) METRONIDAZOLE (Unverified Allergy, Mild, 04/15/16) SULFAMETHOXAZOLE (Verified Allergy, Unknown, 01/28/17) TRIMETHOPRIM (Verified Allergy, Unknown, 01/28/17) Patient History Past Medical History: see triage record Past Surgical History: none Pertinent Family History: none Now: No Reviewed Nursing Documentation: PMH: Agreed; PSxH: Agreed Nursing Documentation-PMH Past Medical History: No History, Except For Hx Hypertension: Yes Hx Pacemaker: No Hx Asthma: Yes Hx COPD: No Hx Diabetes: No Hx Cancer: No Hx Gastrointestinal Problems: Yes - GERD Hx Dialysis: No History Of Psychiatric Problem: No Hx Neurological Problems: Yes - Cardenas's Palsy Hx Cerebrovascular Accident: Yes - TIA Hx Seizures: No Review of Systems All Other Systems: negative except mentioned in HPI Physical Exam Vital Signs Date Time Temp Pulse Resp B/P (MAP) Pulse Ox O2 Delivery O2 Flow Rate FiO2 10/01/18 18:54 98.2 89 18 144/71 97 Room Air Sp02 EP Interpretation: reviewed, normal General Appearance: no apparent distress, alert, GCS 15, non-toxic Head: normocephalic, atraumatic Eyes: bilateral eye normal inspection, bilateral eye PERRL ENT: hearing grossly normal, normal voice Neck: full range of motion Respiratory: lungs clear, normal breath sounds, speaking full sentences Cardiovascular #1: regular rate, rhythm, normal capillary refill Gastrointestinal: non tender, soft Genitourinary: normal inspection Musculoskeletal: back normal, gait/station normal, normal range of motion, non- tender Neurologic: alert, oriented x3, responsive, motor strength/tone normal, sensory intact, normal gait, speech normal, no pronator, other - no facial droop., grossly normal Psychiatric: judgement/insight normal Skin: normal color, no rash, warm/dry, well hydrated Lymphatic: no adenopathy Medical Decision Making PA Attestation Dr. Reynoso is my supervising Physician whom patient management has been discussed with. Diagnostic Impression: Primary Impression: Headache Qualified Codes: R51 - Headache Additional Impression: Side effect of medication ER Course 48 year old female presents to the emergency department complaining of 9 out of 10 in severity headache that has been progressive. Patient reports that she has some symptoms yesterday however after taking her dose of prednisone this morning she had significant increase in her headache. Patient states that medications are not working she is recently taking Tamiflu which she was prescribed yesterday. Patient denies fevers but reports chills. Patient also reports being at work and having a hot flash and feeling numbness tingling in the bilateral hands that resolved on its own. Patient denies facial droop, slurred speech, difficulty with speech, unilateral weakness, sudden onset of her headache, neck pain or stiffness or photophobia. Described as constant throbbing frontal NOBLES. denies visual changes or paresthesias. Ddx considered but are not limited to migraine, SAH, Pseudomotor Cerebri,, Mass lesion, Cluster NOBLES, Tension NOBLES, Post lumbar puncture NOBLES. Review labs from yesterday and all were within normal limits she had basic blood work, urinalysis and urine hCG. Vital signs: are WNL, pt. is afebrile H&PE are most consistent with headache- possible medication SE. ORDERS: - none required at this time, dx is clinical. ED INTERVENTIONS: -1 Liter NS IV x 2 - Reglan IV -Benadryl IV -Toradol IV ---Pt. began having an anxious reaction after IV administration of the first three medications. --1mg Ativan IV --to counter the anxious reaction Pt will need re-assessment when more alert. anticipate d/c. as she is reporting NOBLES has improved. DISCHARGE: At this time pt. is stable for d/c to home. Will provide printed patient care instructions, and any necessary prescriptions. Care plan and follow up instructions have been discussed with the patient prior to discharge. Last Vital Signs Date Time Temp Pulse Resp B/P (MAP) Pulse Ox O2 Delivery O2 Flow Rate FiO2 10/01/18 18:54 98.2 89 18 144/71 97 Room Air Disposition: HOME, SELF-CARE Condition: Stable Signed Out To: Dr. Castañeda Departure Forms: Return to Work Return to Work Date: Oct 04, 2018 Work Restrictions: None Return to Full Activity: Oct 04, 2018 Patient Instructions: General Headache Without Cause Additional Instructions: Take medications as directed. Follow up with a Primary Care Provider in 3-5 days, even if your symptoms have resolved. *For neurologist evaluation* --Please review list of primary care clinics, if you do not already have a primary care provider Return sooner to ED if new symptoms occur, or current symptoms become worse. Do not drink alcohol, drive, or operate heavy machinery while taking [ ] as this may cause drowsiness. - Please note that this Emergency Department Report was dictated using [employer] room supervisor technology software, occasionally this can lead to erroneous entry secondary to interpretation by the dictation equipment. Karen Rodriguez Oct 01, 2018 19:02
[2018-10-01 19:05] VITALS: BP 144/71
--- NOTE | 2018-10-01 19:07 | NUR ---
ED Nurse Note: Pt arrived for headache 06/23. Pt was in yesterday for same issue. States that medication prescribed did not work at all and headache never diminished. Pain generalized throughout whole head and radiates to face/sinus area.
[2018-10-01] MEDS ORDERED: Metoclopramide 10mg/2ml Inj IVP ONE (19:15)
[2018-10-01] MEDS ORDERED: DiphenhydrAMINE 50mg/ml Inj IVP ONE (19:15)
[2018-10-01] MEDS ORDERED: Ketorolac 30mg Inj IV ONE (19:30)
[2018-10-01] MEDS ORDERED: LORazepam Inj 2mg/ml 1ml IV ONE (20:00)
[2018-10-01 23:40] VITALS: BP 122/63
--- NOTE | 2018-10-01 23:40 | NUR ---
ED Nurse Note: Pt cleared by MD. Discharge instructions were provided. Pt verbalized understanding of all instructions. All belongings were taken with patient. Pt A/Ox4, with steady gait. at bedside to accompany pt home. IV band and ID removed.
== END 2018-10-01 23:40 | disposition home or self-care (01) ==
LOC: EMR 19:11
DX: R51 Headache (principal); T38.0X5A Adverse effect of glucocorticoids and synthetic analogues, initial encounter; I10 Essential (primary) hypertension; Z88.2 Allergy status to sulfonamides; Z88.8 Allergy status to other drugs, medicaments and biological substances; J45.909 Unspecified asthma, uncomplicated; K21.9 Gastro-esophageal reflux disease without esophagitis; Z86.73 Personal history of transient ischemic attack (TIA), and cerebral infarction without residual deficits
CPT/HCPCS: 96361; 96374; 96375; 99284; J1200; J1885; J2765

== ENCOUNTER 2018-11-07 09:24 | Emergency (ER) | payer MEDICAID ==
[~2018-11-07] VITALS: Ht 160 cm; Wt 74.8 kg
[2018-11-07 09:41] VITALS: BP 134/65
--- NOTE | 2018-11-07 09:43 | NUR ---
ED Nurse Note: pt walked in to ER c/o polyuria, lower abdominal pain 10/10, cloudy urine, burning sensation upon urination, itching and red vagina which is unusual, cloudy discharge from vagina. pt aao x4 and calm. skin clean and intact.
[2018-11-07] MEDS ORDERED: LEVAQUIN500 MG ORAL (10:32)
[2018-11-07] MEDS ORDERED: PHENAZOPYRIDIN100 MG ORAL (10:35)
--- NOTE | 2018-11-07 10:35 | Emergency Room Report ---
History of Present Illness General Chief Complaint: Female Urogenital Problems Source: Patient Present Illness HPI This is a 48-year-old female with a history of frequent urinary tract infection O complains of dysuria with increased frequency of urination and suprapubic pain for the last 2 days. She states it is exactly like her urinary tract infection. She also complains of these infection with whitest discharge. She denies any other associated symptom. No nausea or vomiting. She denies any fever. No radiation the back. Allergies: Coded Allergies: NITROFURANTOIN (Verified Allergy, Severe, Anaphylaxis, 07/08/16) CEPHALEXIN (Unverified Allergy, Mild, 04/15/16) METRONIDAZOLE (Unverified Allergy, Mild, 04/15/16) SULFAMETHOXAZOLE (Verified Allergy, Unknown, 01/28/17) TRIMETHOPRIM (Verified Allergy, Unknown, 01/28/17) Patient History Past Medical History: see triage record Past Surgical History: none Pertinent Family History: none Now: No Nursing Documentation-PMH Hx Hypertension: Yes Hx Pacemaker: No Hx Asthma: Yes Hx COPD: No Hx Diabetes: No Hx Cancer: No Hx Gastrointestinal Problems: Yes - GERD Hx Dialysis: No Hx Neurological Problems: Yes - Cardenas's Palsy Hx Cerebrovascular Accident: Yes - TIA Hx Seizures: No Review of Systems All Other Systems: negative except mentioned in HPI Physical Exam Vital Signs Date Time Temp Pulse Resp B/P (MAP) Pulse Ox O2 Delivery O2 Flow Rate FiO2 11/07/18 09:28 98.6 93 19 134/65 99 Room Air General Appearance: well appearing, no apparent distress Head: normocephalic, atraumatic ENT: hearing grossly normal, normal voice Respiratory: no respiratory distress, speaking full sentences Gastrointestinal: soft, other - mmild suprapubic tenderness. There is no adnexal mass or tenderness. Genitourinary: normal inspection Neurologic: normal inspection, alert, oriented x3, shellac polisher III-XII nml as tested Medical Decision Making Diagnostic Impression: Primary Impression: Dysuria ER Course Patient was seen and examined. She is afebrile. She declined a pelvic exam. She states very similar to her use infection. She will be given a dose of Diflucan. Urinalysis has been sent. However, I will empirically treat the patient. She states that she has multiple allergies. We will use Levaquin for antibiotics. She should return is any change in symptoms or worsening symptoms. Risk and benefits of Levaquin has been spending the patient. She should follow up with her primary care physician and urologist as scheduled. Last Vital Signs Date Time Temp Pulse Resp B/P (MAP) Pulse Ox O2 Delivery O2 Flow Rate FiO2 11/07/18 09:41 98.6 81 19 134/65 99 Room Air Disposition: HOME, SELF-CARE Condition: Stable Scripts Phenazopyridine Hcl* (PYRIDIUM*) 100 Mg Tablet 100 MG ORAL THREE TIMES A DAY PRN for For Pain for 3 Days, #6 TAB 0 Refills Prov: ARLIN KIRBY 11/07/18 Levofloxacin* (LEVAQUIN*) 500 Mg Tablet 500 MG ORAL DAILY for 7 Days, #7 TAB 0 Refills Prov: ARLIN KIRBY 11/07/18 Patient Instructions: Urinary Tract Infection, Vaginal Yeast Infection, Adult ARLIN KIRBY Nov 07, 2018 10:35
[2018-11-07 10:41] LABS: APPEARANCE,URINE CLEAR; BILIRUBIN, URINE NEGATIVE (NEGATIVE); COLOR,URINE PALE YELLOW; GLUCOSE, URINE (UA) NEGATIVE (NEGATIVE); KETONES,URINE NEGATIVE (NEGATIVE); NITRITE,URINE NEGATIVE (NEGATIVE); PH,URINE 7 (4.5-8.0); PROTEIN,URINE NEGATIVE (NEGATIVE); UROBILINOGEN,URINE NORMAL MG/DL (0.0-1.0)
[2018-11-07] MEDS ORDERED: Fluconazole 100mg tab ORAL ONE (10:45)
[2018-11-07 10:54] LABS: LEUKOCYTE ESTERASE ,URINE 2+ (NEGATIVE)
[2018-11-07 11:15] VITALS: BP 132/67
--- NOTE | 2018-11-07 11:15 | NUR ---
ER DISCHARGE NOTE: Patient is cleared to be discharged per ERMD, pt is aox4, on room air, with stable vital signs. pt was given dc and prescription instructions, pt was able to verbalize understanding, pt id band removed without complications. pt is able to ambulate with steady gait. pt took all belongings.
== END 2018-11-07 11:15 | disposition home or self-care (01) ==
LOC: EMR 10:45
DX: R30.0 Dysuria (principal); I10 Essential (primary) hypertension; J45.909 Unspecified asthma, uncomplicated; K21.9 Gastro-esophageal reflux disease without esophagitis; Z86.73 Personal history of transient ischemic attack (TIA), and cerebral infarction without residual deficits; Z88.2 Allergy status to sulfonamides; Z88.8 Allergy status to other drugs, medicaments and biological substances
CPT/HCPCS: 81003; 99283

== ENCOUNTER 2018-12-31 19:54 | Emergency (ER) | payer MEDICAID ==
[~2018-12-31] VITALS: Ht 167.6 cm; Wt 74.8 kg
[2018-12-31] MEDS ORDERED: DYAZIDE1 CAP ORAL (20:03)
[2018-12-31] MEDS ORDERED: ACID CONTROL150 MG ORAL (20:03)
[2018-12-31 20:05] VITALS: BP 132/72
--- NOTE | 2018-12-31 20:05 | NUR ---
ED Nurse Note: Pt arrived ED from home, c/o vaginal itchingness with white discharge for one week. Pt is A/O x4. Vital signs stable at this time, waiting for orders.
[2018-12-31] MEDS ORDERED: ALBUTEROL SULF8.5 GM INH (20:23)
[2018-12-31] MEDS ORDERED: FLUCONAZOLE100 MG ORAL (20:23)
[2018-12-31] MEDS ORDERED: ZYRTEC10 MG ORAL (20:23)
[2018-12-31] MEDS ORDERED: CIPROFLOXACIN500 M2 ORAL (20:23)
--- NOTE | 2018-12-31 20:23 | Emergency Room Report ---
History of Present Illness General Chief Complaint: Female Urogenital Problems Source: Patient Present Illness HPI 48-year-old female presents for multiple complaints. States that one week ago she began having urinary frequency, pelvic pressure, vaginal discharge that is white with little flakes and is itchy, and dysuria. States that she thinks that she is having urinary tract infection and states that in the past has been given Cipro as she is allergic to many other antibiotics. Patient also complains of having a cough. States that she has some chest congestion as well as nasal congestion and postnasal drip which is aggravating her symptoms. States she is taking naproxen with some improvement of her symptoms. Denies any current n/v/f/c/d, abd pain, back pain, neck pain, photophobia, phonophobia , CP, SOB or headache. Allergies: Coded Allergies: NITROFURANTOIN (Verified Allergy, Severe, Anaphylaxis, 07/08/16) CEPHALEXIN (Unverified Allergy, Mild, 04/15/16) METRONIDAZOLE (Unverified Allergy, Mild, 04/15/16) SULFAMETHOXAZOLE (Verified Allergy, Unknown, 01/28/17) TRIMETHOPRIM (Verified Allergy, Unknown, 01/28/17) Patient History Past Medical History: see triage record Last Menstrual Period: 12/27/18 Now: No : 1 Para: 1 Reviewed Nursing Documentation: PMH: Agreed; PSxH: Agreed Nursing Documentation-PMH Past Medical History: No History, Except For Hx Hypertension: Yes Hx Pacemaker: No Hx Asthma: Yes Hx COPD: No Hx Diabetes: No Hx Cancer: No Hx Gastrointestinal Problems: Yes - GERD Hx Dialysis: No Hx Neurological Problems: Yes - Cardenas's Palsy Hx Cerebrovascular Accident: Yes - TIA Hx Seizures: No Review of Systems All Other Systems: negative except mentioned in HPI Physical Exam Vital Signs Date Time Temp Pulse Resp B/P (MAP) Pulse Ox O2 Delivery O2 Flow Rate FiO2 12/31/18 19:58 98.1 85 18 132/72 98 Room Air Sp02 EP Interpretation: reviewed, normal General Appearance: no apparent distress, alert, GCS 15, non-toxic Head: normocephalic, atraumatic Eyes: bilateral eye normal inspection, bilateral eye PERRL ENT: hearing grossly normal, normal pharynx, no angioedema, normal voice, TMs + canals normal, uvula midline, nasal congestion Neck: full range of motion, supple/symm/no masses Respiratory: chest non-tender, lungs clear, normal breath sounds, speaking full sentences Cardiovascular #1: regular rate, rhythm, no edema Gastrointestinal: normal bowel sounds, non tender, soft, non-distended, no guarding, no rebound Genitourinary: no CVA tenderness Musculoskeletal: gait/station normal Neurologic: alert, oriented x3, responsive, motor strength/tone normal, sensory intact, speech normal Psychiatric: judgement/insight normal, memory normal, mood/affect normal, no suicidal/homicidal ideation Skin: normal color, no rash, warm/dry, well hydrated Medical Decision Making PA Attestation Dr. Castañeda is my supervising physician with whom patient management has been discussed with. Diagnostic Impression: Primary Impression: Acute cystitis Qualified Codes: N30.00 - Acute cystitis without hematuria Additional Impressions: Vaginitis Qualified Codes: N76.0 - Acute vaginitis Upper respiratory infection Qualified Codes: J06.9 - Acute upper respiratory infection, unspecified ER Course 48-year-old female with multiple complaints. States she is having dysuria and urinary symptoms in addition to having white flakes and itchiness in her vagina area. Differential diagnosis includes but limited to vaginitis, urinary tract infection, pyelonephritis, brachial vaginosis. Patient describes this as white flakes and itchy which are more consistent with a candidal vaginitis. She is also having this pelvic pressure with urinary frequency so I will also treat for possible UTI. She also has this cough that appears benign. Her lungs were clear to auscultation she has no signs of hypoxia. At this time the patient appears stable for discharge home without any emergent exam findings. Will provide printed patient care instructions, and any necessary prescriptions. Care plan and follow up instructions have been discussed with the patient prior to discharge. Last Vital Signs Date Time Temp Pulse Resp B/P (MAP) Pulse Ox O2 Delivery O2 Flow Rate FiO2 12/31/18 19:58 98.1 85 18 132/72 98 Room Air Disposition: HOME, SELF-CARE Condition: Stable Scripts Ciprofloxacin Hcl* (CIPROFLOXACIN HCL*) 500 Mg Tablet 500 MG ORAL EVERY 12 HOURS, #10 TAB 0 Refills Prov: Melania Rosenbaum 12/31/18 Cetirizine Hcl* (ZYRTEC*) 10 Mg Tablet 10 MG ORAL DAILY, #14 TAB 0 Refills Prov: Melania Rosenbaum 12/31/18 Fluconazole (FLUCONAZOLE) 100 Mg Tablet 150 MG ORAL DAILY, #2 TAB 0 Refills Take 1 tab today. Repeate in 1 week as needed Prov: Melania Rosenbaum 12/31/18 Albuterol Sulfate* (ALBUTEROL SULFATE MDI*) 8.5 Gm Hfa.aer.ad 2 PUFF INH Q4H, #1 INH 0 Refills Prov: Melania Rosenbaum 12/31/18 Patient Instructions: Vaginal Yeast Infection, Adult, Urinary Tract Infection Additional Instructions: Take medication as directed. Return to clinic or PCP sooner if symptoms worsen or do not improve. Go to ER if you experience any adverse reactions to medication or if you start developing back pain or fever. Take medication as directed. Drink plenty of fluids which include Gatorade and water. Get plenty of rest. Avoid taking medications on an empty stomach. If you have cough avoid dairy and cold beverages. If you have a fever, headache or body aches please take [id number] tylenol/motrin/advil unless a prescription for these symptoms have been given. If your symptoms are worsening or you have shortness or breath, severe headaches or chest pain, please call 911 or go to the ER. Melania Rosenbaum Dec 31, 2018 20:23
[2018-12-31 20:29] VITALS: BP 131/72
--- NOTE | 2018-12-31 20:29 | NUR ---
ER DISCHARGE NOTE: Patient is cleared to be discharged Julienne Alfonso. Pt is aox4 on room air with stable vital signs. Pt was given dc and prescription instructions, pt was able to verbalize understanding. Pt's ID band removed. Pt is able to ambulate with steady gait and took all belongings.
== END 2018-12-31 20:29 | disposition home or self-care (01) ==
LOC: EMR 20:19
DX: N30.00 Acute cystitis without hematuria (principal); N76.0 Acute vaginitis; J06.9 Acute upper respiratory infection, unspecified; I10 Essential (primary) hypertension; J45.909 Unspecified asthma, uncomplicated; K21.9 Gastro-esophageal reflux disease without esophagitis; Z86.73 Personal history of transient ischemic attack (TIA), and cerebral infarction without residual deficits
CPT/HCPCS: 99283

== ENCOUNTER 2019-01-31 20:20 | Emergency (ER) | payer MEDICAID ==
[~2019-01-31] VITALS: Ht 160 cm; Wt 74.8 kg
[~2019-01-31 20:20] MED LIST changes: +ACID CONTROL150 MG ORAL; +ZYRTEC10 MG ORAL
--- NOTE | 2019-01-31 20:35 | NUR ---
ED Nurse Note: RECIEVED PT FROM HOME, WITH C/O DYSURIA AND LOWER INTERMITTENT ABD PAIN FOR 3 DAYS, PT STATES SHE KNOWS ITS A URINARY INFECTION, PT HAS URINE SAMPLE, DENIES FEVERS, VOMITING OR NAUSEA, OR ANY OTHER COMPLAINTS.
--- NOTE | 2019-01-31 21:01 | Emergency Room Report ---
History of Present Illness General Chief Complaint: Abdominal Pain Source: Patient Present Illness HPI This is a 48-year-old female with no significant past medical history. She presents with chief complaint of suprapubic pain. She has pressure. Does have some urgency and frequency. No fever chills but no nausea vomiting. Said there is an odor to it. She does have vaginal discharge but this is chronic in nature. Denies any other complaint. No back pain. No fever or chills. Allergies: Coded Allergies: NITROFURANTOIN (Verified Allergy, Severe, Anaphylaxis, 07/08/16) CEPHALEXIN (Unverified Allergy, Mild, 04/15/16) METRONIDAZOLE (Unverified Allergy, Mild, 04/15/16) LEVOFLOXACIN (Verified Allergy, Unknown, 01/31/19) SULFAMETHOXAZOLE (Verified Allergy, Unknown, 01/28/17) TRIMETHOPRIM (Verified Allergy, Unknown, 01/28/17) Patient History Past Medical History: see triage record, old chart reviewed Past Surgical History: other Pertinent Family History: none Social History: Denies: smoking Last Menstrual Period: 12/16/48 Now: No Immunizations: other Reviewed Nursing Documentation: PMH: Agreed; PSxH: Agreed Nursing Documentation-PMH Past Medical History: No History, Except For Hx Hypertension: Yes Hx Pacemaker: No Hx Asthma: Yes Hx COPD: No Hx Diabetes: No Hx Cancer: No Hx Gastrointestinal Problems: Yes - GERD Hx Dialysis: No Hx Neurological Problems: Yes - Cardenas's Palsy Hx Cerebrovascular Accident: Yes - TIA Hx Seizures: No Review of Systems Eye: Denies: eye pain, blurred vision ENT: Denies: ear pain, nose congestion, throat swelling Respiratory: Denies: cough, shortness of breath Cardiovascular: Denies: chest pain, palpitations Gastrointestinal: Reports: abdominal pain; Denies: diarrhea, nausea, vomiting Genitourinary: Reports: dysuria, urgency Musculoskeletal: Denies: back pain, joint pain Skin: Denies: rash Neurological: Denies: headache, numbness Endocrine: Denies: increased thirst, increased urine Hematologic/Lymphatic: Denies: easy bruising All Other Systems: negative except mentioned in HPI Physical Exam Vital Signs Date Time Temp Pulse Resp B/P (MAP) Pulse Ox O2 Delivery O2 Flow Rate FiO2 01/31/19 20:23 98.1 83 16 98 Room Air vitals unremarkable Sp02 EP Interpretation: reviewed, normal General Appearance: well appearing, no apparent distress, alert Head: normocephalic, atraumatic Eyes: bilateral eye PERRL, bilateral eye EOMI ENT: hearing grossly normal, normal pharynx Neck: full range of motion, supple, no meningismus Respiratory: chest non-tender, lungs clear, normal breath sounds Cardiovascular #1: regular rate, rhythm, no murmur Gastrointestinal: normal bowel sounds, non tender, no mass, no organomegaly, no bruit, non-distended Musculoskeletal: back normal, gait/station normal, normal range of motion Psychiatric: mood/affect normal Skin: warm/dry Medical Decision Making Diagnostic Impression: Primary Impression: Vaginitis Qualified Codes: N76.0 - Acute vaginitis ER Course Patient with a septic vaginitis. Urinalysis is negative for an infection. She has multiple to of allergy to different classes of antibiotics. This may be psychogenic. She said she can't take Cipro but I'll hold off antibiotics for now since there is no clearcut infection in the urine. She does have a whitish discharge and is itchy. She thinks is a yeast infection. We'll put her on Diflucan which she can take. We'll discharge home. Last Vital Signs Date Time Temp Pulse Resp B/P (MAP) Pulse Ox O2 Delivery O2 Flow Rate FiO2 01/31/19 20:23 98.1 83 16 98 Room Air Status: unchanged Disposition: HOME, SELF-CARE Condition: Stable Scripts Metronidazole* (METROGEL-VAGINAL*) 70 Gm Gel.w.appl 1 APPL VAGIN BEDTIME for 7 Days, GM Prov: Freddy Gregg MD 01/31/19 Fluconazole (FLUCONAZOLE) 100 Mg Tablet 100 MG ORAL DAILY, #7 TAB 0 Refills Prov: Freddy Gregg MD 01/31/19 Additional Instructions: Follow-up with your doctor in 7 days. You may need a referral to see an block sorter for testing to see if you are truly allergic to all these antibiotics. Return if worse. Freddy Gregg MD January 31, 2019 21:01
[2019-01-31 21:04] LABS: APPEARANCE,URINE SLIGHTLY CLOUDY; BILIRUBIN, URINE NEGATIVE (NEGATIVE); GLUCOSE, URINE (UA) NEGATIVE (NEGATIVE); KETONES,URINE NEGATIVE (NEGATIVE); LEUKOCYTE ESTERASE ,URINE 2+ (NEGATIVE); NITRITE,URINE NEGATIVE (NEGATIVE); PH,URINE 6 (4.5-8.0); PROTEIN,URINE NEGATIVE (NEGATIVE); UROBILINOGEN,URINE NORMAL MG/DL (0.0-1.0)
[2019-01-31 21:05] LABS: COLOR,URINE YELLOW
[2019-01-31] MEDS ORDERED: FLUCONAZOLE100 MG ORAL (21:22)
[2019-01-31] MEDS ORDERED: METROGEL-VAGINA70 G1 VAGIN (21:22)
[2019-01-31 21:32] VITALS: BP 143/83
== END 2019-01-31 21:32 | disposition home or self-care (01) ==
LOC: EMR 21:00
DX: N76.0 Acute vaginitis (principal); Z88.8 Allergy status to other drugs, medicaments and biological substances; Z88.2 Allergy status to sulfonamides; I10 Essential (primary) hypertension; K21.9 Gastro-esophageal reflux disease without esophagitis; G51.0 Bell's palsy; Z86.73 Personal history of transient ischemic attack (TIA), and cerebral infarction without residual deficits
CPT/HCPCS: 81003; 81025; 99283

== ENCOUNTER 2019-04-15 02:16 | Emergency (ER) | payer MEDICAID ==
[~2019-04-15] VITALS: Ht 160 cm; Wt 74.8 kg
[2019-04-15 02:28] VITALS: BP 123/74
--- NOTE | 2019-04-15 02:28 | NUR ---
ED Nurse Note: pt walked in c/o low abd pressure like pain and right side low back pain with white vaginal discharge and frequency/urgency in urination x 1 wk. denies n/v/d. will cont monitor. urine specimen obtained.
[2019-04-15 02:58] LABS: APPEARANCE,URINE CLEAR; BILIRUBIN, URINE NEGATIVE (NEGATIVE); COLOR,URINE PALE YELLOW; GLUCOSE, URINE (UA) NEGATIVE (NEGATIVE); KETONES,URINE NEGATIVE (NEGATIVE); LEUKOCYTE ESTERASE ,URINE 1+ (NEGATIVE); NITRITE,URINE NEGATIVE (NEGATIVE); PH,URINE 6.5 (4.5-8.0); PROTEIN,URINE NEGATIVE (NEGATIVE); UROBILINOGEN,URINE NORMAL MG/DL (0.0-1.0)
--- NOTE | 2019-04-15 02:58 | Emergency Room Report ---
History of Present Illness General Chief Complaint: Female Urogenital Problems Source: Medical Record Present Illness HPI HPI: Is a 48-year-old female with a history of hypertension presented for evaluation of pelvic pain and irritation. She describes presently 1 week of pelvic pressure bilaterally, urinary frequency, urinary urgency, dysuria, itching and discharge. Discharge is white and thick. This is consistent with her prior candidiasis infections. Intermittent nausea. Previous UTIs and yeast infections. Sexually active with her , does not use barrier contraception. Denies . Denies fevers, chills, chest pain, shortness of breath, diarrhea, hematuria PMH: Hypertension PSH: Denies Allergies: Multiple medication allergies to mostly to antibiotics Social Hx: Denies alcohol, drug or tobacco use Allergies: Coded Allergies: NITROFURANTOIN (Verified Allergy, Severe, Anaphylaxis, 07/08/16) CEPHALEXIN (Unverified Allergy, Mild, 04/15/16) METRONIDAZOLE (Unverified Allergy, Mild, 04/15/16) LEVOFLOXACIN (Verified Allergy, Unknown, 01/31/19) SULFAMETHOXAZOLE (Verified Allergy, Unknown, 01/28/17) TRIMETHOPRIM (Verified Allergy, Unknown, 01/28/17) Patient History Last Menstrual Period: 04/02/19 Now: No : 1 Para: 1 Nursing Documentation-PMH Hx Hypertension: Yes Hx Pacemaker: No Hx Asthma: Yes Hx COPD: No Hx Diabetes: No Hx Cancer: No Hx Gastrointestinal Problems: Yes - GERD Hx Dialysis: No Hx Neurological Problems: Yes - Cardenas's Palsy Hx Cerebrovascular Accident: Yes - TIA Hx Seizures: No Review of Systems All Other Systems: negative except mentioned in HPI Physical Exam Vital Signs Date Time Temp Pulse Resp B/P (MAP) Pulse Ox O2 Delivery O2 Flow Rate FiO2 04/15/19 02:23 98.2 79 18 123/74 (90) 97 Room Air General: Awake and alert, no acute distress HEENT: NC/AT. EOMI. Neck: Supple, trachea midline Abdomen: Abdomen is soft, nondistended. Tenderness palpation of the suprapubic region. : No significant edema, erythema of the labia. There is thick white discharge in the vaginal vault with erythematous vaginal tapia. No significant order appreciated. Skin: Intact. No abrasions, laceration or rash over the exposed skin MSK: Normal tone and bulk. Moving all extremities. No obvious deformity. Neuro: Awake and alert. Mentating appropriately. Medical Decision Making ER Course 48-year-old female with a history of urinary tract infection and vulvovaginal candidiasis presents for evaluation 1 week lower pelvic pain, urinary frequency/ dysuria and thick vaginal discharge. Differential includes was not limited to urinary tract infection, candidiasis, STI. Given the thick white discharge on her physical exam and her for history we have ordered a urinalysis which showed 1+ leukocyte esterase though few bacteria and overall does not appear infectious. vulvovaginal candidiasis appears most likely. Will treat with a dose of Diflucan 150 mg in the emergency department here and discharged with additional 2 doses prescription however the patient will call her INFORMATION SECURITY ENGINEER, Dr. Carter, tomorrow for clinic visit and reevaluation to determine whether or not she should take those additional tablets. We discussed dosing schedule if she is to take those tablets. Cultures are sent. we also discussed reasons to return to the emergency department. She understands and agrees with treatment plan will be discharged home. Please note that this report is being documented using [employer] technology. This can lead to erroneous entry secondary to incorrect interpretation by the dictating instrument. Last Vital Signs Date Time Temp Pulse Resp B/P (MAP) Pulse Ox O2 Delivery O2 Flow Rate FiO2 04/15/19 02:28 98.2 78 18 123/74 97 Room Air Disposition: HOME, SELF-CARE Condition: Stable Scripts Fluconazole (FLUCONAZOLE) 150 Mg Tablet 150 MG ORAL DAILY, #2 TAB Prov: Rafy Garcia MD 04/15/19 Referrals: NON PHYSICIAN (PCP) Rafy Garcia MD Apr 15, 2019 02:58
--- NOTE | 2019-04-15 03:45 | NUR ---
ED Nurse Note: Josette PAINTING with pelvic exam, pt tolerated well, very scant amount of white colored discharge ntoed, lab specimens sent, pt given linen for cleaning, denies increased discomfort or any other complaints, will continue to closely monitor while waiting for dispo.
[2019-04-15] MEDS ORDERED: FLUCONAZOLE150 MG ORAL (03:53)
[2019-04-15] MEDS ORDERED: Fluconazole 150mg tab ORAL ONE (04:00)
--- NOTE | 2019-04-15 04:05 | NUR ---
ED Nurse Note: Pt medicated as ordered, denies having allergies to med, will continue to monitor and prepare for discharge.
[2019-04-15 04:15] VITALS: BP 129/66
[2019-04-15 04:35] VITALS: BP 129/66
== END 2019-04-15 04:35 | disposition home or self-care (01) ==
LOC: EMR 02:50
DX: R10.2 Pelvic and perineal pain (principal); J45.909 Unspecified asthma, uncomplicated; K21.9 Gastro-esophageal reflux disease without esophagitis; Z88.2 Allergy status to sulfonamides; Z88.8 Allergy status to other drugs, medicaments and biological substances; Z88.1 Allergy status to other antibiotic agents; I10 Essential (primary) hypertension; Z86.73 Personal history of transient ischemic attack (TIA), and cerebral infarction without residual deficits
CPT/HCPCS: 81003; 81025; 87070; 87210; 87491; 87590; 99284

== ENCOUNTER 2019-04-21 18:12 | Emergency (ER) | payer MEDICAID ==
[~2019-04-21] VITALS: Ht 160 cm; Wt 74.8 kg
[~2019-04-21 18:12] MED LIST changes: +FLUCONAZOLE150 MG ORAL
[2019-04-21 18:39] VITALS: BP 126/98
--- NOTE | 2019-04-21 18:40 | NUR ---
ED Nurse Note: Pt came in from home due to break outs on her face since Thursday04/19/19. Pt started developing chest tightness and pressure pain and SOB since today. Susptected symptoms to be an " allergic reaction. Pain 05/24 jason. AOx4, VSS. Will cont to monitor.
--- NOTE | 2019-04-21 18:49 | Emergency Room Report ---
History of Present Illness General Chief Complaint: Pain Source: Patient Present Illness HPI Patient presents with complaints of irritation and itching to her facial area This started on Thursday patient cannot recall using any different products does not recall using any hair coloring As this has been ongoing patient had used a cream And yesterday put alcohol on her face which she feels worse in the symptoms this morning patient also started to have a palpitation sensation and midsternal chest pain Denies any chest pain currently denies any shortness of breath denies any difficulty breathing or swallowing Denies any vomiting or diarrhea Allergies: Coded Allergies: NITROFURANTOIN (Verified Allergy, Severe, Anaphylaxis, 07/08/16) CEPHALEXIN (Unverified Allergy, Mild, 04/15/16) METRONIDAZOLE (Unverified Allergy, Mild, 04/15/16) LEVOFLOXACIN (Verified Allergy, Unknown, 01/31/19) SULFAMETHOXAZOLE (Verified Allergy, Unknown, 01/28/17) TRIMETHOPRIM (Verified Allergy, Unknown, 01/28/17) Patient History Past Medical History: see triage record Pertinent Family History: none Last Menstrual Period: last month Now: No Reviewed Nursing Documentation: PMH: Agreed; PSxH: Agreed Nursing Documentation-PMH Past Medical History: No History, Except For Hx Hypertension: Yes Hx Pacemaker: No Hx Asthma: Yes Hx COPD: No Hx Diabetes: No Hx Cancer: No Hx Gastrointestinal Problems: Yes - GERD Hx Dialysis: No Hx Neurological Problems: Yes Hx Cerebrovascular Accident: Yes - TIA Hx Seizures: No Review of Systems All Other Systems: negative except mentioned in HPI Physical Exam Vital Signs Date Time Temp Pulse Resp B/P (MAP) Pulse Ox O2 Delivery O2 Flow Rate FiO2 04/21/19 18:28 98.2 94 18 131/81 (98) 98 Room Air Sp02 EP Interpretation: reviewed, normal General Appearance: well appearing, no apparent distress Head: normocephalic, atraumatic Eyes: bilateral eye PERRL, bilateral eye EOMI ENT: hearing grossly normal, normal pharynx, TMs + canals normal, uvula midline Neck: full range of motion, supple, no meningismus, no bony tend Respiratory: lungs clear, normal breath sounds, no rhonchi, no respiratory distress, no retraction, no accessory muscle use Cardiovascular #1: normal peripheral pulses, regular rate, rhythm, no edema, no gallop, no JVD, no murmur Gastrointestinal: normal bowel sounds, non tender, soft, no mass, no organomegaly, non-distended, no guarding, no hernia, no pulsatile mass, no rebound Genitourinary: no CVA tenderness Musculoskeletal: normal inspection Neurologic: oriented x3, responsive, diffuser operator III-XII nml as tested, motor strength/ tone normal, sensory intact Psychiatric: mood/affect normal Skin: rash - Mild erythema involving the bilateral maxillary region forehead, oral mucosa is clear no obvious swelling of the lips voice is normal Lymphatic: normal inspection, no adenopathy Medical Decision Making Diagnostic Impression: Primary Impression: Allergic reaction Additional Impression: Dermatitis ER Course Given the patient's history and examination it appears that she has having some reaction on her facial area she was provided appropriate medications here EKG was also performed which was normal And patient will have initial conservative outpatient trial EKG Diagnostic Results Rate: normal Rhythm: NSR ST Segments: no acute changes Rhythm Strip Diag. Results EP Interpretation: yes Rate: 60 Rhythm: NSR, no PVC's, no ectopy Last Vital Signs Date Time Temp Pulse Resp B/P (MAP) Pulse Ox O2 Delivery O2 Flow Rate FiO2 04/21/19 18:39 98.2 78 20 126/98 99 Room Air Status: improved Disposition: HOME, SELF-CARE Condition: Improved Scripts Hydrocortisone/Aloe Vera 1%* (HYDROCORTISONE-ALOE 1% CREAM*) Y Cr 1 APPLIC TOPIC Q6H PRN for Itching for 7 Days, #30 GM Prov: Edgardo Segal DO 04/21/19 Diphenhydramine Hcl* (BENADRYL*) 25 Mg Capsule 25 MG ORAL Q8HR PRN for Itching, #20 CAP Prov: Edgardo Segal DO 04/21/19 Methylprednisolone (Methylprednisolone*) 4MG Dspk 4 MG ORAL DIRECTED for 6 Days, #21 EA 0 Refills Day 1: Two tablets before breakfast, one after lunch, one after dinner, and two at bedtime. If started late in the day, take all six tablets at once or divide into two or three doses, unless otherwise directed by prescriber. Day 2: One tablet before breakfast, one after lunch, one after dinner, and two at bedtime Day 3: One tablet before breakfast, one after lunch, one after dinner, and one at bedtime Day 4: One tablet before breakfast, one after lunch, and one at bedtime Day 5: One tablet before breakfast and one at bedtime Day 6: One tablet before breakfast Prov: Edgardo Segal DO 04/21/19 Additional Instructions: Patient is provided with the discharge instructions notified to follow up with primary doctor in the next 2-3 days otherwise return to the er with any worsening symptoms. Please note that this report is being documented using [employer] technology. This can lead to erroneous entry secondary to incorrect interpretation by the dictating instrument. Edgadro Segal DO Apr 21, 2019 18:49
[2019-04-21] MEDS ORDERED: MEDROL DOSEPAK4 MG ORAL (19:09)
[2019-04-21] MEDS ORDERED: BENADRYL25 MG ORAL (19:09)
[2019-04-21] MEDS ORDERED: HYDROCORTISONE-30 GM TOPIC (19:09)
[2019-04-21 19:14] VITALS: BP 144/80
== END 2019-04-21 19:14 | disposition home or self-care (01) ==
LOC: EMR 19:10
DX: T78.40XA Allergy, unspecified, initial encounter (principal); X58.XXXA Exposure to other specified factors, initial encounter; I10 Essential (primary) hypertension; J45.909 Unspecified asthma, uncomplicated; K21.9 Gastro-esophageal reflux disease without esophagitis; Z86.73 Personal history of transient ischemic attack (TIA), and cerebral infarction without residual deficits; L30.9 Dermatitis, unspecified
CPT/HCPCS: 93005; 99282; J7512

== ENCOUNTER 2019-05-09 21:45 | Emergency (ER) | payer MEDICAID ==
[~2019-05-09 21:45] MED LIST changes: +HYDROCORTISONE-30 GM TOPIC; +MEDROL DOSEPAK4 MG ORAL
== END 2019-05-09 22:42 | disposition left against medical advice (07) ==
LOC: EMR 22:42
DX: Z53.21 Procedure and treatment not carried out due to patient leaving prior to being seen by health care provider (principal)

== ENCOUNTER 2019-07-23 18:22 | Emergency (ER) | payer MEDICAID ==
[~2019-07-23] VITALS: Ht 162.6 cm; Wt 74.8 kg
[2019-07-23 18:28] VITALS: BP 132/64
--- NOTE | 2019-07-23 18:35 | NUR ---
ED Nurse Note: Patient walked into ED from home c/o abdominal pain, patient reports n/v that started since yesterday. patient reports hx of gastric acid reflux. patient c/o constipation, reports bright blood in her stool today as well. patient is alert awake x4 ambulatory steady gait, breathing unlabored and even, speaking in full sentences. patient able to provide urine sample.
[2019-07-23] MEDS ORDERED: Lidocaine 2% Visc 15ml soln ORAL ONE (18:45)
[2019-07-23] MEDS ORDERED: Mylanta II UD 30ml ORAL ONE (18:45)
[2019-07-23] MEDS ORDERED: Dicyclomine HCl 10mg/5ml oral soln ORAL ONE (18:45)
[2019-07-23 19:11] LABS: BASOPHILS % (AUTO) 0.9 % (0.0-2.0); EOSINOPHILS % (AUTO) 5.1 % (0.0-3.0); HEMATOCRIT 29.3 % (37.0-47.0); HEMOGLOBIN 9.1 G/DL (12.0-16.0); LYMPHOCYTES % (AUTO) 24.5 % (20.0-45.0); MEAN CORPUSCULAR VOLUME 74 FL (80-99); MONOCYTES % (AUTO) 11.5 % (1.0-10.0); PLATELET COUNT 365 K/UL (150-450); RED BLOOD COUNT 3.96 M/UL (4.20-5.40); RED CELL DISTRIBUTION WIDTH 14.1 % (11.6-14.8); WHITE BLOOD COUNT 7.2 K/UL (4.8-10.8)
--- NOTE | 2019-07-23 19:12 | NUR ---
ED Nurse Note: Patient resting comfortably with no s/s of acute distress. Patient reports persistent epigastric pain 10/10 at this time. Will consult ERMD.
--- NOTE | 2019-07-23 19:12 | NUR ---
HAND-OFF: Report given to Cait BAKER, patient tolerated medications, resting in bed.
[2019-07-23 19:41] LABS: ANION GAP 7 mmol/L (5-15); BLOOD UREA NITROGEN 10 mg/dL (7-18); CALCIUM 7.7 MG/DL (8.5-10.1); CARBON DIOXIDE 30 MMOL/L (21-32); CHLORIDE 103 MMOL/L (98-107); CREATININE 0.9 MG/DL (0.55-1.30); POTASSIUM 3.3 MMOL/L (3.5-5.1); SODIUM 140 MMOL/L (136-145)
[2019-07-23 19:45] LABS: ALANINE AMINOTRANSFERASE 24 U/L (12-78); ALBUMIN 3.2 G/DL (3.4-5.0); ALBUMIN/GLOBULIN RATIO 0.9 (1.0-2.7); ALKALINE PHOSPHATASE 73 U/L (46-116); ASPARTATE AMINO TRANSFERASE 16 U/L (15-37); BILIRUBIN,TOTAL 0.2 MG/DL (0.2-1.0)
[2019-07-23 19:54] VITALS: BP 129/67
[2019-07-23] MEDS ORDERED: Ketorolac 30mg Inj IV ONE (20:00)
[2019-07-23] MEDS ORDERED: Morphine Sulfate 4mg/ml Inj (IV USE ONLY) IVP ONE (20:00)
[2019-07-23] MEDS ORDERED: ONDANSETRON ODT4 MG BC (20:27)
[2019-07-23] MEDS ORDERED: RANITIDINE HCL150 MG ORAL (20:27)
[2019-07-23 20:33] VITALS: BP 129/67
--- NOTE | 2019-07-23 20:33 | NUR ---
ED Nurse Note: Patient cleared for discharge by ERMd. Patient verbalized understanding of discharge instructions. ID band removed, IV removed. Patient departed with all belongings, A&Ox4, ambulatory with steady gait.
--- NOTE | 2019-07-23 22:06 | Emergency Room Report ---
History of Present Illness General Chief Complaint: Abdominal Pain Source: Patient Present Illness HPI 48-year-old female presents ED for evaluation. Complaining of abdominal pain with nausea and vomiting x1 week. History of gastritis. Pain is epigastric, burning, 7 out of 10, nonradiating. States she does not have medication at this time. Denies fevers or chills. Denies diarrhea. Denies chest pain or shortness of breath. No other aggravating relieving factors. Denies any other associated symptoms Allergies: Coded Allergies: NITROFURANTOIN (Verified Allergy, Severe, Anaphylaxis, 07/08/16) CEPHALEXIN (Unverified Allergy, Mild, 04/15/16) METRONIDAZOLE (Unverified Allergy, Mild, 04/15/16) LEVOFLOXACIN (Verified Allergy, Unknown, 01/31/19) SULFAMETHOXAZOLE (Verified Allergy, Unknown, 01/28/17) TRIMETHOPRIM (Verified Allergy, Unknown, 01/28/17) Patient History Past Medical History: HTN, GERD Past Surgical History: none Pertinent Family History: none Social History: Denies: smoking, alcohol use, drug use Last Menstrual Period: 06/2019 Now: No Immunizations: UTD Reviewed Nursing Documentation: PMH: Agreed; PSxH: Agreed Nursing Documentation-PMH Past Medical History: No History, Except For Hx Hypertension: Yes Hx Pacemaker: No Hx Asthma: Yes Hx COPD: No Hx Diabetes: No Hx Cancer: No Hx Gastrointestinal Problems: Yes - GERD Hx Dialysis: No Hx Neurological Problems: Yes Hx Cerebrovascular Accident: Yes - TIA Hx Seizures: No Review of Systems All Other Systems: negative except mentioned in HPI Physical Exam Vital Signs Date Time Temp Pulse Resp B/P (MAP) Pulse Ox O2 Delivery O2 Flow Rate FiO2 07/23/19 18:28 98.2 94 20 132/64 (86) 98 Room Air Sp02 EP Interpretation: reviewed, normal General Appearance: no apparent distress, alert, GCS 15, non-toxic Head: normocephalic, atraumatic Eyes: bilateral eye normal inspection, bilateral eye PERRL ENT: hearing grossly normal, normal pharynx, no angioedema, normal voice Neck: full range of motion, supple/symm/no masses Respiratory: chest non-tender, lungs clear, normal breath sounds, speaking full sentences Cardiovascular #1: regular rate, rhythm, no edema Cardiovascular #2: 2+ carotid (R), 2+ carotid (L), 2+ radial (R), 2+ radial (L) , 2+ dorsalis pedis (R), 2+ dorsalis pedis (L) Gastrointestinal: normal bowel sounds, soft, non-distended, no guarding, no rebound, tenderness - epigastric Rectal: deferred Genitourinary: normal inspection, no CVA tenderness Musculoskeletal: back normal, gait/station normal, normal range of motion, non- tender Neurologic: alert, oriented x3, responsive, motor strength/tone normal, sensory intact, speech normal Psychiatric: judgement/insight normal, memory normal, mood/affect normal, no suicidal/homicidal ideation Reflexes: 3+ bicep (R), 3+ bicep (L), 3+ tricep (R), 3+ tricep (L), 3+ knee (R) , 3+ knee (L) Skin: no rash Lymphatic: no adenopathy Medical Decision Making Diagnostic Impression: Primary Impression: Gastritis Qualified Codes: K29.00 - Acute gastritis without bleeding ER Course Hospital Course 48-year-old F presents to ED with epigastric pain with N/V. differential diagnosis: gastritis, SBO, cholecystits Clinical course Patient placed on stretcher. 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 After initial history and physical I ordered labs, IV fluids, GI cocktail, Zofran and pepcid Labs - no leukocytosis, no electrolyte abnormalities, LFTs normal, Upon reassessment, patient states feels better. Likely gastritis. History of gastritis. Discussed findings with patient. Will discharge to home with prescription for Zantac. States that she has a PMD. I feel this is a highly complex case requiring extensive working including EKG/ Rhythm strip, Xray/CT/US, Blood/urine lab work, repeat exams while in ED, and administration of strong opiates/narcotics for pain control, admission to hospital or close patient follow up. Diagnosis - gastritis Stable and discharged to home with prescriptions for Zantac, zofran. Followup with PMD. Return to ED if symptoms recur or worsen Labs Test 07/23/19 18:50 White Blood Count 7.2 K/UL (4.8-10.8) Red Blood Count 3.96 M/UL (4.20-5.40) Hemoglobin 9.1 G/DL (12.0-16.0) Hematocrit 29.3 % (37.0-47.0) Mean Corpuscular Volume 74 FL (80-99) Mean Corpuscular Hemoglobin 23.1 PG (27.0-31.0) Mean Corpuscular Hemoglobin Concent 31.1 G/DL (32.0-36.0) Red Cell Distribution Width 14.1 % (11.6-14.8) Platelet Count 365 K/UL (150-450) Mean Platelet Volume 5.7 FL (6.5-10.1) Neutrophils (%) (Auto) 58.0 % (45.0-75.0) Lymphocytes (%) (Auto) 24.5 % (20.0-45.0) Monocytes (%) (Auto) 11.5 % (1.0-10.0) Eosinophils (%) (Auto) 5.1 % (0.0-3.0) Basophils (%) (Auto) 0.9 % (0.0-2.0) Sodium Level 140 MMOL/L (136-145) Potassium Level 3.3 MMOL/L (3.5-5.1) Chloride Level 103 MMOL/L (98-107) Carbon Dioxide Level 30 MMOL/L (21-32) Anion Gap 7 mmol/L (5-15) Blood Urea Nitrogen 10 mg/dL (7-18) Creatinine 0.9 MG/DL (0.55-1.30) Estimat Glomerular Filtration Rate > 60 mL/min (>60) Glucose Level 84 MG/DL (74-106) Calcium Level 7.7 MG/DL (8.5-10.1) Total Bilirubin 0.2 MG/DL (0.2-1.0) Aspartate Amino Transf (AST/SGOT) 16 U/L (15-37) Alanine Aminotransferase (ALT/SGPT) 24 U/L (12-78) Alkaline Phosphatase 73 U/L (46-116) Total Protein 6.9 G/DL (6.4-8.2) Albumin 3.2 G/DL (3.4-5.0) Globulin 3.7 g/dL Albumin/Globulin Ratio 0.9 (1.0-2.7) Lipase 269 U/L (73-393) Last Vital Signs Date Time Temp Pulse Resp B/P (MAP) Pulse Ox O2 Delivery O2 Flow Rate FiO2 07/23/19 20:33 98.2 77 23 129/67 100 Room Air Status: improved Disposition: HOME, SELF-CARE Condition: Stable Scripts Ondansetron Odt* (ZOFRAN ODT*) 4 Mg Tab.rapdis 4 MG BC EVERY 6 HOURS PRN for Nausea & Vomiting, #20 TAB 0 Refills Prov: Harley Castañeda MD 07/23/19 Ranitidine Hcl* (ZANTAC*) 150 Mg Tablet 150 MG ORAL TWICE A DAY, #30 TAB Prov: Harley Castañeda MD 07/23/19 Patient Instructions: Gastritis, Adult, [id number] Harley Castañeda MD Jul 23, 2019 22:05
== END 2019-07-23 20:33 | disposition home or self-care (01) ==
LOC: EMR 20:30
DX: K29.00 Acute gastritis without bleeding (principal); K21.9 Gastro-esophageal reflux disease without esophagitis; I10 Essential (primary) hypertension; Z86.73 Personal history of transient ischemic attack (TIA), and cerebral infarction without residual deficits; Z88.8 Allergy status to other drugs, medicaments and biological substances
CPT/HCPCS: 36415; 80053; 83690; 85025; 96361; 96374; 96375; J1885; J2405; S0028; Z7502; 99284; J7030